=== PATIENT | female | born 1970 | race African-American/Black ===

== ENCOUNTER → 2022-06-08 11:44 | Outpatient (BNVA) | payer OTHER, SELFPAY | PROVIDERS: PCP Internal Medicine; Referring Provider Internal Medicine; Visit Provider Physician Assistant Surgical ==

== ENCOUNTER 2022-10-11 10:53 | Outpatient (AMB) | payer OTHER, SELFPAY ==
--- NOTE | 2022-10-11 10:59 | MHC.OFFVISWM ---
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 BMI 47.7 Equity Manager Required: No Allergies No Known Allergies Allergy (Verified 10/11/22 11:06) Medication List - Last Reconciled 10/11/22 by KIERA Phillips celecoxib 100 mg PO BID cyanocobalamin (vitamin B-12) (Vitamin B-12) 5,000 mcg PO DAILY furosemide 20 mg PO DAILY gabapentin 300 mg PO TID gabapentin 600 mg PO TID hydrochlorothiazide 25 mg PO DAILY lisinopril 10 mg PO DAILY nystatin 100,000 units topical BID oxycodone-acetaminophen 10-325 mg 1 tab PO QID PRN valacyclovir 500 mg PO BID HPI HPI Comments History of Present Illness Details Pt is here to start the [facility] surgical weight loss program. She heard about our program from her PCP. Her goal is to lose weight and achieve a healthy lifestyle as well as to improve, if not resolve, obesity related medical conditions, including OA and HTN. She reports first being concerned about her weight over 10 years, highest weight to date was 300. Current weight is 238.6 pounds with a BMI of 48.2. She has tried multiple methods of weight loss including multiple fad diets without permanent results. She lives with her daughter and son. She does not work. States she has limited mobility due to severe bilateral hip arthritis and was told by her Orthopedist that she needs to lose 30 more pounds prior to any surgical intervention. She was also told by her urologist that she has gallstones although does not report frequent RUQ abdominal pain. She does get epigastric pain perhaps 1-2 x per month. She has been experiencing intermittent chest pain and is being followed by her irrigationist designer and is scheduled for echocardiogram. Ortho- [facility] ([facility]) Cards- Dr Carr Urology-Dr Loja She wakes at:?6 am, and goes to bed at?10 pm. Dinner is at 6 pm. Breakfast: cheese luxembourgish, croissant, iced coffee vanilla syrup cream and sugar AM snack: fries, chips, fruit, yogurt, Lunch: sandwich, pasta salad, fast food PM snack: chips, little bite muffins Dinner: bagged pasta, rik sauce, chicken parm, rice, veg, kilbasa, beans After dinner: chips, cookies, ice cream. Other snacks: as above Liquids: 16-32 oz water, 60 oz soda daily (coke, kaylyn ros), cran juice 32 oz daily Alcohol/marijuana/tobacco intake: 3-4 glasses of wine weekly, no cannabis, no tobacco Exercise: none, no gym membership, no equipment at home. GERD score: 0 TAMARA score: 3 ESS score: 8 QOL score: 27 (many questions not answered as she felt limitations were from arthritis and need for walker rather than weight) PFSH Surgical History Hx of hernia repair Family History Mother Arthritis Heart problem Father Diabetes Colon cancer Family history of prostate cancer Arthritis Son Nerve damage Asthma Daughter Asthma Daughter Asthma Social History Alcohol intake: current Alcohol intake frequency: holidays/special occasions only Patient Tobacco Use Status: Never used Tobacco Review of Systems Const All systems reviewed & are unremarkable except as noted in HPI and below Physical Exam Vital Signs: Last Vital Signs Temp 96.7 F L 10/11/22 11:14 Pulse 73 10/11/22 11:14 BP 147/67 H 10/11/22 11:14 Pulse Ox 99 10/11/22 11:14 Oxygen Delivery Method Room Air 10/11/22 11:14 BMI result Body Mass Index 48.2 Const General: cooperative, healthy appearing and no acute distress Orientation/consciousness: patient oriented x3 Limitations: ambulation with walker HEENT Head: Yes normal to inspection Ears: hearing grossly normal bilaterally General nose exam: Normal external nose present Face and sinus: Yes normal facial exam Eyes General: appearance normal, both eyes and all related structures Resp Effort & Inspection: normal respiratory effort Auscultation: clear to auscultation bilaterally Cardio Rate: regular rate Rhythm: regular rhythm Heart sounds: S1 normal heart sound present and S2 normal heart sound present GI Inspection: Yes normal to inspection, No distended and Yes obesity Palpation (GI): Soft to palpation, nontender and no guarding Auscultation: normal bowel sounds Skin General skin exam: no rashes or lesions noted Neuro General: patient oriented x3 Extrem General: No edema Psych Appearance: grossly normal Mental Status: mental status grossly normal Speech and movement: Normal speech and movement present Affect: normal affect Attitude: cooperative Assessment & Plan Assessment & Plan (1) Morbid obesity: Code(s): E66.01 - Morbid (severe) obesity due to excess calories Plan: This is a?52 yo female who will start our SWL program to prepare for bariatric surgery.? Blood work, h pylori , CXR, ECG, Abd US and UGI have been ordered. She is being scheduled for RD and BH initial consultations. She will start SWL classes and watch the first three videos before her next appointment. ? Adequate sleep of 7-8 hours per night discussed, awakening at 6 am and going to bed around 10 pm ? Purchase body composition analyzer scale ([place] or Teresa recommended) and check weight weekly. The best time to do this is first thing in the morning after going to the bathroom. 1. Nutritional counseling: Be sure to careful read the number of scoops per shake Start with 3 Orgain shakes ([employer], [employer], [facility]), First shake, (2 scoops in 8 oz low fat unsweetened almond milk or water) at 7am-9am, Second shake (1 scoop in 8 oz unsweetened almond milk or water) at 11am-1pm 1 protein bar (Fulfil bars at [employer], [employer], or [employer]) at 2pm-4pm. Dinner at 6pm (9 forks of protein and 9 forks of salad/vegetables). Meal to include lean meat (beef, fish, pork, turkey, chicken), cooked vegetables or a salad with olive oil and/or fruits (berries, pears, apples, kiwi). Avoid salt, breads, potatoes, rice, pasta, desserts. Another shake with 1 scoop in 8 oz unsweetened almond milk at 8pm-10pm. Try to drink 64 oz of water daily and avoid soda and juices. ?2. Each shake would be drunk slowly, like coffee in a period of 2 hours. ?3. Cut each bar in 4 pieces and eat each piece in 30 min ?to make each bar last 2 hours. ?4. I emphasized the importance of measuring accurately the food portion and measure it carefully when serving the food on the plate ?5. The meal portions include 9 full-size forks of meat and 9 full-size forks of salad. You always eat the meat portion but you can replace up to half of the forks of salad/vegetables with rice, potatoes or pasta, or a fruit ?if you like. The less you do it the better weight loss will be. ?6. One full-size fork is what can be scooped on the fork without falling aside and not what can be bit with the fork. Use regular forks like those you find in a typical restaurant. ?7.? Please send me weight measurements as soon as possible and then once a week. Always include your diet and exercise plan. Alternatively come weekly at the office for weight checks and send me the measurements. ?8. Exercise counseling: Begin by watching a stretching for beginners video. Start slowly and begin to stretch your muscles. You should do this before and after each exercise session to prevent injury. Please join [facility] gym near your home. Ask the plant hr manager or one of the trainers how to use the machines if you are unfamiliar with them. [The following is the goal, I know you are limited by your hips but I want you to be able to see what the goals will be] Start elliptical with a resistance of 2. Increase resistance by 1 every 3 min to your most comfortable resistance with a max resistance of 8. Reduce the resistance by 1 every 3 minutes back down to 2 and repeat cycles for 300 calories. Alternatively, start treadmill with a speed of 3.0 and incline of 0, increasing incline by 1 every 3 minutes to the highest comfortable level (max 6 for now) then decrease in the same fashion. Repeat process to a goal of 300 calories. Goal of 2000 calories burned or more weekly. You may also consider use of the stationary bike. The easiest would be to chose the fat-burn or interval training program on the machine and do this until you reach the 300 calorie goal. Alternatively, you can manually adjust the resistance in a similar fashion as mentioned above, (resistance of 2-8 with a goal speed of 12 mph). Tracking calories is essential. Now this is the part that applies to you: Consider walking in the shallow end of the pool for 10 minutes daily, increasing by 2 minutes every 3 days as your endurance and tolerance improves to a goal of 45 minutes daily. Additionally please look at sit and be fit videos that you can do at home. Start with the beginners videos and then increase to intermediate as you improve. 9. (This is another goal that you will be able to achieve, but not yet) Alternatively start walking outside daily, tracking calories with a goal of 300 calories per day, daily. You can download the adi Wibiya which can track your time, distance and calories while walking outside. You press start in the adi when you start and then stop when you are finished. 10.? It is important to communicate by text with me weekly. Your weight and especially if you are having any problems with the plans. 11. Please get labs, EKG and chest X-Ray within 1 week. 12. Discussed and answered all questions regarding?obtained consent to participate in the [place] [facility]?Registry. 13. Please follow the diet plan exactly, without any change. If you do not like something about the plan or you feel hungry, you need to communicate with me so I can help you revise the plan. You should not change the plan yourself. Text me at [phone] 14. Goal is to lose at least 12 pounds in the first month 15. Goal is to lose 10% of your weight before surgery, which is about 24 lbs. Ultimate weight goal: 214 lbs before surgery Patient is morbidly obese and is not considered stable at this time.?I spent a total of 70 minutes reviewing/updating records, examining the patient and counseling the patient on weight management as detailed above. (2) Cholelithiasis: Code(s): K80.20 - Calculus of gallbladder without cholecystitis without obstruction Plan: Consult to Dr Barber Orders: Orders Vitamin B12 and Folate Today E66.01 - Morbid (severe) obesity due to excess calories, I10 - Essential (primary) hypertension, K80.20 - Calculus of gallbladder without cholecystitis without obstruction Comprehensive Met. Panel Today E66.01 - Morbid (severe) obesity due to excess calories, I10 - Essential (primary) hypertension, K80.20 - Calculus of gallbladder without cholecystitis without obstruction C Reactive Protein Today E66.01 - Morbid (severe) obesity due to excess calories, I10 - Essential (primary) hypertension, K80.20 - Calculus of gallbladder without cholecystitis without obstruction Ferritin Today E66.01 - Morbid (severe) obesity due to excess calories, I10 - Essential (primary) hypertension, K80.20 - Calculus of gallbladder without cholecystitis without obstruction Hemoglobin A1c Today E66.01 - Morbid (severe) obesity due to excess calories, I10 - Essential (primary) hypertension, K80.20 - Calculus of gallbladder without cholecystitis without obstruction Insulin Today E66.01 - Morbid (severe) obesity due to excess calories, I10 - Essential (primary) hypertension, K80.20 - Calculus of gallbladder without cholecystitis without obstruction IRON PROFILE Today E66.01 - Morbid (severe) obesity due to excess calories, I10 - Essential (primary) hypertension, K80.20 - Calculus of gallbladder without cholecystitis without obstruction Lipid Panel Today E66.01 - Morbid (severe) obesity due to excess calories, I10 - Essential (primary) hypertension, K80.20 - Calculus of gallbladder without cholecystitis without obstruction PTHI Today E66.01 - Morbid (severe) obesity due to excess calories, I10 - Essential (primary) hypertension, K80.20 - Calculus of gallbladder without cholecystitis without obstruction TSH reflex Free T4 Today E66.01 - Morbid (severe) obesity due to excess calories, I10 - Essential (primary) hypertension, K80.20 - Calculus of gallbladder without cholecystitis without obstruction Vitamin A Today E66.01 - Morbid (severe) obesity due to excess calories, I10 - Essential (primary) hypertension, K80.20 - Calculus of gallbladder without cholecystitis without obstruction Vitamin B1 Today E66.01 - Morbid (severe) obesity due to excess calories, I10 - Essential (primary) hypertension, K80.20 - Calculus of gallbladder without cholecystitis without obstruction Vitamin D 25-OH Total Today E66.01 - Morbid (severe) obesity due to excess calories, I10 - Essential (primary) hypertension, K80.20 - Calculus of gallbladder without cholecystitis without obstruction Zinc Today E66.01 - Morbid (severe) obesity due to excess calories, I10 - Essential (primary) hypertension, K80.20 - Calculus of gallbladder without cholecystitis without obstruction ECG 12 lead EKG Today E66.01 - Morbid (severe) obesity due to excess calories, I10 - Essential (primary) hypertension, K80.20 - Calculus of gallbladder without cholecystitis without obstruction FL upper GI w air Today E66.01 - Morbid (severe) obesity due to excess calories, I10 - Essential (primary) hypertension, K80.20 - Calculus of gallbladder without cholecystitis without obstruction Complete Blood Count Auto Diff Today E66.01 - Morbid (severe) obesity due to excess calories, I10 - Essential (primary) hypertension, K80.20 - Calculus of gallbladder without cholecystitis without obstruction H Pylori Breath Test Today E66.01 - Morbid (severe) obesity due to excess calories, I10 - Essential (primary) hypertension, K80.20 - Calculus of gallbladder without cholecystitis without obstruction US abdomen comp w elastography Today E66.01 - Morbid (severe) obesity due to excess calories, I10 - Essential (primary) hypertension, K80.20 - Calculus of gallbladder without cholecystitis without obstruction XR chest 2V Today E66.01 - Morbid (severe) obesity due to excess calories, I10 - Essential (primary) hypertension, K80.20 - Calculus of gallbladder without cholecystitis without obstruction Referrals Behavioral Health Referral E66.01 - Morbid (severe) obesity due to excess calories, I10 - Essential (primary) hypertension, K80.20 - Calculus of gallbladder without cholecystitis without obstruction Nutrition/Dietitian Referral E66.01 - Morbid (severe) obesity due to excess calories, I10 - Essential (primary) hypertension, K80.20 - Calculus of gallbladder without cholecystitis without obstruction Coding Level of Care Code New Pt Level 5 (68487) Diagnoses Morbid obesity E66.01 Cholelithiasis K80.20 Time Spent (min) 90
[2022-10-11 11:14] VITALS: BP 147/67; PULSE 73; TEMP 35.9; O2SAT 99; BMI 48.2
== END 2022-10-11 17:30 | disposition home or self-care (01) ==
PROVIDERS: PCP Internal Medicine; Visit Provider Physician Assistant Surgical
DX: E66.01 Morbid (severe) obesity due to excess calories (principal); Z68.42 Body mass index [BMI] 45.0-49.9, adult; K80.20 Calculus of gallbladder without cholecystitis without obstruction
CPT/HCPCS: 99205

== ENCOUNTER → 2022-10-11 10:53 | Outpatient (BNVA) | payer OTHER, SELFPAY | PROVIDERS: PCP Internal Medicine; Visit Provider Physician Assistant Surgical | DX: E66.01 Morbid (severe) obesity due to excess calories (principal); K80.20 Calculus of gallbladder without cholecystitis without obstruction; Z68.42 Body mass index [BMI] 45.0-49.9, adult | CPT/HCPCS: 99202 ==

== ENCOUNTER 2024-04-17 12:34 | Inpatient (IN) | payer OTHER, SELFPAY ==
--- NOTE | ~2024-04-17 | CT_ITS ---
EXAMINATION: CT ABDOMEN AND PELVIS WITH CONTRAST CLINICAL INFORMATION: Abdominal pain, rule out diverticulitis. COMPARISON: 05/03/2021. TECHNIQUE: Multidetector volumetric images were obtained from the superior aspect of the liver through the pubic symphysis following administration 85 mL of Omnipaque 350 intravenous contrast. Sagittal and coronal reformatted images were obtained on the technologist's workstation. Oral contrast: No This CT examination was performed using dose optimization techniques as appropriate, variously including the following: *Automated exposure control *Adjustment of mA and/or kV according to patient size (this includes techniques or standardized protocols for targeted exams where dose is matched to indication/reason for exam; i.e. extremities or head) *Use of iterative reconstruction technique FINDINGS: LUNG BASES: The visualized lung bases are unremarkable. LIVER, GALLBLADDER, AND BILIARY TREE: The liver is normal in size, shape, and attenuation. No focal hepatic lesion or biliary ductal dilatation is present. Gallbladder is surgically absent. PANCREAS: Unremarkable. SPLEEN: Unremarkable. Small splenules. ADRENAL GLANDS: Unremarkable. KIDNEYS AND URETERS: 3 mm nonobstructing calculus right kidney lower pole. No additional renal calculi. There are bilateral small parapelvic cysts. There are no masses. There is no hydronephrosis. Ureters are normal in caliber and course. BLADDER: Suboptimally distended but normal. GASTROINTESTINAL TRACT: There is moderate to severe diverticulosis of the sigmoid and to a lesser degree descending colon. There is no inflammation or wall thickening. Colon is otherwise normal. The appendix is normal. There is no evidence of appendicitis. The small bowel is normal in caliber and course. No inflammation or wall thickening. Stomach is somewhat decompressed but grossly normal. The duodenal sweep appears normal. ABDOMINAL WALL: No significant hernia is appreciated. LYMPH NODES: Not enlarged by size criteria. VASCULAR: Unremarkable. PELVIC VISCERA: There is a left fundal 2.5 cm subserosal fibroid. Uterus and adnexal structures otherwise normal. OSSEOUS STRUCTURES: There are end-stage arthritic changes in both hip joints. [id number] appearance. The pelvis is somewhat narrow. No suspicious lytic or blastic bone lesion. Mild spinal degenerative change. CT/CT abdomen pelvis w IV con IMPRESSION: 1. No acute findings in the abdomen or pelvis. No evidence of diverticulitis. 2. Extensive sigmoid diverticulosis. No inflammation. 3. Nonobstructing 3 mm calculus in the right kidney. No hydronephrosis or hydroureter. 4. Cholecystectomy. 5. End-stage arthropathy bilateral hip joints. Electronically signed by: Babak Massey MD 04/17/2024 05:05 PM [facility]
--- NOTE | 2024-04-17 13:16 | ED_ITS ---
HPI - General Adult General Chief complaint: Abdominal Pain Stated complaint: abd, n/v/d Time Seen by Provider: 04/17/24 15:15 Source: patient Mode of arrival: ambulatory Limitations: no limitations History of Present Illness ED Provider: Virginia Rendon PA-C HPI narrative: Patient is a 53 year old assigned female at with a history of recent Influenza and diverticulitis diagnoses as well as HTN presenting to the emergency department today with continued abdominal pain, nausea, and vomiting. Patient states that she was seen at [facility] on 04/14/2024 and was told at that time she has diverticulitis and influenza. Patient states that she was discharged with oral antibiotics and anti emetics but she continues to have pain, nausea, and vomiting. Patient states that she has been unable to keep anything down since being home. Patient denies any dizziness, lightheadedness, fever, chills, blurry vision, double vision, loss of vision, chest pain, difficulty breathing, shortness of breath, back pain, night sweats, pain with urination, increased urinary frequency, increased urinary urgency, blood in her urine or stool, syncope or a near syncopal episode, recent trauma or falls, bowel incontinence, bladder incontinence, or any other complaints at this time. Relieving factors: none Associated symptoms: nausea/vomiting Treatments prior to arrival: none Related Data Home Medications ?Medication ?Instructions ?Recorded ?Confirmed celecoxib 100 mg capsule 100 mg PO BID 10/11/22 10/11/22 cyanocobalamin (vitamin B-12) 5,000 mcg PO DAILY 10/11/22 10/11/22 5,000 mcg sublingual tablet (Vitamin B-12) furosemide 20 mg tablet 20 mg PO DAILY 10/11/22 10/11/22 gabapentin 300 mg capsule 300 mg PO TID 10/11/22 10/11/22 gabapentin 600 mg tablet 600 mg PO TID 10/11/22 10/11/22 hydrochlorothiazide 25 mg tablet 25 mg PO DAILY 10/11/22 10/11/22 lisinopril 10 mg tablet 10 mg PO DAILY 10/11/22 10/11/22 nystatin 100,000 unit/gram topical 100,000 unit topical BID 10/11/22 10/11/22 powder oxycodone-acetaminophen 10 mg-325 1 tab PO QID PRN 10/11/22 10/11/22 mg tablet valacyclovir 500 mg tablet 500 mg PO BID 10/11/22 10/11/22 atorvastatin 20 mg tablet 20 mg PO BEDTIME 04/17/24 ciprofloxacin HCl 500 mg tablet 500 mg PO BID 04/17/24 metronidazole 500 mg tablet 500 mg PO BID 04/17/24 ondansetron 4 mg disintegrating 4 mg PO Q8H PRN Nausea And Vomiting 04/17/24 tablet Allergies Allergy/AdvReac Type Severity Reaction Status Date / Time amoxicillin [From Augmentin] Allergy Hives Verified 04/17/24 13:21 clavulanic acid Allergy Hives Verified 04/17/24 13:21 [From Augmentin] Review of Systems 2 Constitutional: Constitutional: Reports no additional constitutional complaints, Denies chills, Denies fever(s) and Denies night sweats Eyes: Eyes: Reports no additional eye complaints, Denies blurry vision, Denies change in vision, Denies diplopia, Denies eye discharge, Denies loss of vision and Denies eye pain ENT: Denies dizziness Cardiovascular: Cardiovascular: Reports no additional cardiovascular complaints, Denies chest pain, Denies lightheadedness, Denies Loss of Consciousness and Denies dyspnea Respiratory: Respiratory: Reports no additional respiratory complaints and Denies dyspnea Gastrointestinal: Gastrointestinal: Reports no additional gastrointestinal complaints, Reports abdominal pain, Denies melena, Denies hematochezia, Denies change in bowel habits, Denies change in stool character, Reports nausea and Reports vomiting Genitourinary: Genitourinary: Denies hematuria, Denies urinary frequency, Denies dysuria, Denies urinary incontinence, Denies urinary hesitancy and Denies urinary urgency Musculoskeletal: Musculoskeletal: Reports no additional musculoskeletal complaints, Denies numbness and Denies tingling Neurologic: Denies dizziness, Denies loss of vision, Denies numbness and Denies tingling Psychiatric: Psychiatric: Reports no additional psychiatric complaints Endocrine: Endocrine: Reports no additional endocrine complaints Hematologic/Lymphatic: Hematologic/Lymphatic: Reports no additional hematologic/lymphatic complaints Allergic/Immunologic: Allergic/Immunologic: Reports no additional allergic/immunologic complaints PMFSH Past Medical History Attestation statement: The following information was validated with the patient. Source: old records reviewed and nursing notes reviewed Surgical History (Updated 04/17/24 @ 16:08 by Elvia Talbot PA-C) Hx of section History of laparoscopic cholecystectomy Hx of hernia repair Family History Family History Mother Arthritis Heart problem Father Diabetes Colon cancer Family history of prostate cancer Arthritis Son Nerve damage Asthma Daughter Asthma Daughter Asthma Social History Social History Alcohol intake: current Alcohol intake frequency: holidays/special occasions only Patient Tobacco Use Status: Never used Tobacco Advance Directives: No Advance Directives Information Provided: Yes Physical Exam ED Vital Signs: Vital Signs - 24 hr 04/17/24 13:18 Temperature 98.0 F Pulse Rate 75 Respiratory Rate 16 Blood Pressure 147/78 H Pulse Oximetry 100 Oxygen Delivery Method Room Air BMI result Body Mass Index 46.4 Const General: cooperative, no acute distress, alert and awake Nutritional Appearance: well nourished Orientation/consciousness: patient oriented x3 Limitations: no limitations HENMT Head: Yes normal to inspection and Yes atraumatic Ears: hearing grossly normal bilaterally and external ears normal General nose exam: Normal external nose present, no nasal discharge noted and no epistaxis Face and sinus: Yes normal facial exam, No abrasion and No laceration Mouth: Normal oral and palatal mucosa present, no drooling and no muffled voice Eyes General: appearance normal, both eyes and all related structures Periorbital: periorbital findings normal Eyelids: Yes eyelids normal Conjunctivae: conjunctivae normal Pupils: Equal, round and reactive pupils present EOM: EOMs intact bilaterally Neck Neck: Yes normal visual inspection, Yes full ROM and Yes no lymphadenopathy Chest Chest palpation & inspection: normal inspection of the chest Resp Effort & Inspection: normal respiratory effort and able to speak in complete sentences GI Inspection: Yes normal to inspection Palpation (GI): Soft to palpation, not firm, Tenderness to palpation present (GI) in the LLQ, in the RLQ, in the LUQ and in the RUQ, no guarding and not rigid Neuro General: patient oriented x3, moves all extremities and CN's II-XI intact bilaterally Cranial nerves: Yes Equal, round and reactive pupils present Cognition (Neuro): normal cognition Extrem General: Yes normal to inspection, Yes full ROM and Yes capillary refill normal Psych Appearance: grossly normal Mental Status: mental status grossly normal Affect: normal affect Attitude: cooperative Thought process: Normal thought process present Thought content: Normal thought content present Insight: Good insight present (Psych) Course Course Course Narrative: This is a rapid medical exam performed by Jayla Johns NP: Additional HPI, ROS, PE not included below will be deferred to primary provider. Patient is a 53-year-old female with history of HTN, arthritis, obesity presenting to the emergency department with complaint of nausea, vomiting, diarrhea and abdominal pain. States she has not been able to tolerate food since 04/07. Seen at [facility] on 04/14, diagnosed with influenza A as well as diverticulitis, but has been unable to tolerate the abx due to vomiting, pain is now worse, subjective fevers. Plan: labs, UA Medications Administered Generic Name Dose Route Start Last Admin Trade Name Freq PRN Reason Stop Dose Admin Lactated Ringer's 1,000 mls @ 100 mls/hr 04/17/24 16:15 04/17/24 17:25 Lr IVCONT 100 mls/hr .Q10H PAT Administration Piperacillin Sod/Tazobactam 50 mls @ 100 mls/hr 04/17/24 16:15 04/17/24 17:07 Sod 3.375 gm/ Sodium Chloride IV 100 mls/hr Q6H PAT Administration Discontinued Medications Generic Name Dose Route Start Last Admin Trade Name Freq PRN Reason Stop Dose Admin Potassium Chloride 10 meq in 100 mls @ 100 mls/hr 04/17/24 15:30 04/17/24 17:24 Potassium Chloride/H20 IV 04/17/24 17:29 100 mls/hr Q1H PAT Administration Lactated Ringer's 1,000 mls @ 999 mls/hr 04/17/24 15:30 04/17/24 16:51 Lr IV 04/17/24 16:30 Infused .Q1H1M PAT Infusion Piperacillin Sod/Tazobactam 50 mls @ 100 mls/hr 04/17/24 15:50 04/17/24 17:09 Sod 3.375 gm/ Sodium Chloride IV 04/17/24 16:19 Not Given ONCE ONE Iohexol 100 ml 04/17/24 16:25 04/17/24 16:25 Iohexol 350 Mg/Ml 100 Ml Infus..Btl IV 04/17/24 16:26 100 ml ONCE ONE Administration Morphine Sulfate 4 mg 04/17/24 15:21 04/17/24 15:45 Morphine Sulfate 4 Mg/Ml Cartridge IVPUSH 04/17/24 15:22 4 mg ONCE ONE Administration Protocol Ondansetron HCl 4 mg 04/17/24 15:16 04/17/24 15:43 Ondansetron Hcl 4 Mg/2 Ml Vial IVPUSH 04/17/24 15:17 4 mg ONCE ONE Administration Potassium Chloride 20 meq 04/17/24 15:16 04/17/24 15:45 Potassium Chloride Er 20 Meq Tab.Er.Prt PO 04/17/24 15:17 20 meq ONCE ONE Administration Medical Decision Making Medical Decision Making MDM Narrative: Patient is a 53 year old assigned female at with a history of recent Influenza and diverticulitis diagnoses as well as HTN presenting to the emergency department today with continued abdominal pain, nausea, and vomiting. Patient's physical exam was as noted in the physical exam portion of this note. Patient's blood work showed a potassium of 3.0. Patient's CT abd/pelvis showed no acute process. I reviewed the patient's records from her [facility] ER visit on 04/14/2024. There she had a CT scan of the abdomen/pelvis that showed acute non- complicated diverticulitis. I consulted with the surgical team given the patient's physical exam findings and they agreed to admission. Patient was given IV antibiotics and potassium. Patient's clinical presentation is not consistent with sepsis (@1700). I explained my physical exam findings as well as all test results to the patient. I answered all questions asked by the patient. Patient verbalized agreement and understanding with this treatment plan and admission. Differential Diagnosis Differential Diagnoses: The differential diagnosis associated with the presentation includes Worsening diverticulitis Hypokalemia Abdominal pain Influenza Admission/Observation Consideration of admission/observation: Escalation of care including admission/observation considered Patient admitted as noted in the MDM Rationale portion of this note. Consult Healthcare Provider Management of the patient was discussed with: Cork Molder (spoke to the surgical team as noted in the MDM Rationale portion of this note. ) Lab Data [facility] Lab Attestation statement: I reviewed the patient's lab results. My interpretation of these results are in the MDM Rationale portion of this note. 04/17/24 13:25 04/17/24 13:25 Labs: Lab Results 04/17/24 Range/Units 13: WBC 4.3 L (4.8-10.8) X10*3/uL RBC 4.69 (4.20-5.50) X10*6/uL Hgb 12.3 (12.0-16.0) g/dl Hct 36.8 L (37.0-47.0) % MCV 78.5 L (80.0-98.0) fL MCH 26.2 L (27.0-33.0) pg MCHC 33.4 (31.0-35.0) g/dl RDW 14.5 (11.0-16.0) % Plt Count 201 (160-400) X10*3/uL MPV 11.4 (9.4-12.3) fL Immature Gran % (Auto) 0.2 (0.0-0.4) % Neut % (Auto) 49.0 (45-73) % Lymph % (Auto) 41.2 H (20-40) % [facility] % (Auto) 9.2 (2-11) % Eos % (Auto) 0.2 (0-4) % Baso % (Auto) 0.2 (0-2) % Lymph # (Auto) 1.8 (1.2-4.9) X10*3/uL [facility] # (Auto) 0.4 (0.1-1.2) X10*3/uL Eos # (Auto) 0.0 (0.0-0.4) X10*3/uL Baso # (Auto) 0.0 (0.0-0.2) X10*3/uL Abs Immat Gran (auto) 0.01 (0.00-0.03) X10*3/uL Absolute Neuts (auto) 2.1 (2.0-8.3) x10*3/uL Absolute Nucleated RBC 0.000 (0.0-0.012) X10*3/uL Nucleated RBC % (auto) 0.0 (0.0-0.2) /100WBC Smear Tech's Comments VERIFIED Sodium 142 (135-145) mmol/L Potassium 3.0 L (3.3-5.1) mmol/L Chloride 107 (96-108) mmol/L Carbon Dioxide 23 (22-29) mmol/L Anion Gap 15 (12-20) BUN 9 (9-16) mg/dL Creatinine 0.78 (0.5-1.4) mg/dL Estim Creat Clear Calc 88.0 Estimated GFR > 60 Random Glucose 92 (60-115) mg/dL Calcium 9.0 (8.4-10.2) mg/dL Magnesium 2.1 (1.6-2.6) mg/dL Total Bilirubin 0.7 (0.0-1.0) mg/dL AST 29 (5-31) U/L ALT 11 (0-31) U/L Alkaline Phosphatase 53 (39-117) U/L Total Protein 7.8 (6.5-8.0) g/dL Albumin 4.2 (3.5-5.0) g/dL Lipase 23 (8-78) U/L Independent Interpretation I performed an independent interpretation of an: CT Scan Interpretation: My interpretation is in agreement with the radiologist's impression of this imaging study. L Report Number: [id number]: Total DLP = 967.00 mGy-cm EXAMINATION: CT ABDOMEN AND PELVIS WITH CONTRAST CLINICAL INFORMATION: Abdominal pain, rule out diverticulitis. COMPARISON: 05/03/2021. TECHNIQUE: Multidetector volumetric images were obtained from the superior aspect of the liver through the pubic symphysis following administration 85 mL of Omnipaque 350 intravenous contrast. Sagittal and coronal reformatted images were obtained on the technologist's workstation. Oral contrast: No This CT examination was performed using dose optimization techniques as appropriate, variously including the following: *Automated exposure control *Adjustment of mA and/or kV according to patient size (this includes techniques or standardized protocols for targeted exams where dose is matched to indication/reason for exam; i.e. extremities or head) *Use of iterative reconstruction technique FINDINGS: LUNG BASES: The visualized lung bases are unremarkable. LIVER, GALLBLADDER, AND BILIARY TREE: The liver is normal in size, shape, and attenuation. No focal hepatic lesion or biliary ductal dilatation is present. Gallbladder is surgically absent. PANCREAS: Unremarkable. SPLEEN: Unremarkable. Small splenules. ADRENAL GLANDS: Unremarkable. KIDNEYS AND URETERS: 3 mm nonobstructing calculus right kidney lower pole. No additional renal calculi. There are bilateral small parapelvic cysts. There are no masses. There is no hydronephrosis. Ureters are normal in caliber and course. BLADDER: Suboptimally distended but normal. GASTROINTESTINAL TRACT: There is moderate to severe diverticulosis of the sigmoid and to a lesser degree descending colon. There is no inflammation or wall thickening. Colon is otherwise normal. The appendix is normal. There is no evidence of appendicitis. The small bowel is normal in caliber and course. No inflammation or wall thickening. Stomach is somewhat decompressed but grossly normal. The duodenal sweep appears normal. ABDOMINAL WALL: No significant hernia is appreciated. LYMPH NODES: Not enlarged by size criteria. VASCULAR: Unremarkable. PELVIC VISCERA: There is a left fundal 2.5 cm subserosal fibroid. Uterus and adnexal structures otherwise normal. OSSEOUS STRUCTURES: There are end-stage arthritic changes in both hip joints. Dfqs-go-[id number] appearance.The pelvis is somewhat narrow. No suspicious lytic or blastic bone lesion. Mild spinal degenerative change. CT/CT abdomen pelvis w IV con IMPRESSION: 1. No acute findings in the abdomen or pelvis. No evidence of diverticulitis. 2. Extensive sigmoid diverticulosis. No inflammation. 3. Nonobstructing 3 mm calculus in the right kidney. No hydronephrosis or hydroureter. 4. Cholecystectomy. 5. End-stage arthropathy bilateral hip joints. Electronically signed by: Babak Massey MD 04/17/2024 05:05 PM [facility] Dictated By: Babak Massey MD Signed By: Electronically signed by Babak Massey MD 04/17/24 1705 Radiology Impression Discussion of test interpretation with radiology: I have reviewed the radiologist's reading. Critical Care Time Critical Care Time Critical Care Time: Yes Total Critical Care Time: 36 Attestation: I spent 36 minutes of Critical Care Time with this patient. This does not include time spent on separately reported billable procedures. Discharge Plan Discharge Clinical Impression: Abdominal pain, Acute hypokalemia, Influenza Patient Disposition: Admitted As Inpatient
[2024-04-17 13:18] VITALS: BP 147/78; PULSE 75; RESP 16; TEMP 36.7; O2SAT 100; BMI 46.4
[2024-04-17 13:40] LABS: Basophils Percent Auto 0.2 % (0-2); Eosinophils Percent Auto 0.2 % (0-4); Hematocrit 36.8 % (37.0-47.0); Hemoglobin 12.3 g/dl (12.0-16.0); Imm Gran Abs Auto 0.01 X10*3/uL (0.00-0.03); Imm Gran Pct Auto 0.2 % (0.0-0.4); Lymphocytes Absolute Auto 1.8 X10*3/uL (1.2-4.9); Lymphocytes Percent Auto 41.2 % (20-40); MANUAL DIFF FLAG SCAN; Mean Corpuscular HGB Conc 33.4 g/dl (31.0-35.0); Mean Corpuscular Hemoglobin 26.2 pg (27.0-33.0); Mean Corpuscular Volume 78.5 fL (80.0-98.0); Mean Platelet Volume 11.4 fL (9.4-12.3); Monocytes Absolute Auto 0.4 X10*3/uL (0.1-1.2); Monocytes Percent Auto 9.2 % (2-11); Neutrophils Absolute Auto 2.1 x10*3/uL (2.0-8.3); Platelet Count 201 X10*3/uL (160-400); Red Blood Count 4.69 X10*6/uL (4.20-5.50); Red Cell Distribution Width 14.5 % (11.0-16.0); SCAN SMEAR FLAG 1; White Blood Count 4.3 X10*3/uL (4.8-10.8)
[2024-04-17 13:52] LABS: Alanine Aminotransferase 11 U/L (0-31); Albumin Level 4.2 g/dL (3.5-5.0); Alkaline Phosphatase 53 U/L (39-117); Anion Gap 15 (12-20); Aspartate Amino Transferase 29 U/L (5-31); Bilirubin Total 0.7 mg/dL (0.0-1.0); Blood Urea Nitrogen 9 mg/dL (9-16); Carbon Dioxide 23 mmol/L (22-29); Chloride 107 mmol/L (96-108); Estimated Glomerular Filt Rate > 60; Glucose Random 92 mg/dL (60-115); Lipase 23 U/L (8-78); Magnesium 2.1 mg/dL (1.6-2.6); Sodium 142 mmol/L (135-145); Total Protein 7.8 g/dL (6.5-8.0)
--- OUTSIDE RECORDS SUMMARY | 2024-04-17 13:57 | XMS_ITS | Encounter Summary ---
Author Organization [facility] Address [address] [place] [address] Care Team Providers Care User Interface Developer Name Role Phone Matthew Licona MD Primary Care Provider [phone] Reason for Visit * Reason Onset Date Comments provder call back 04/11/2024 Reschedule 04/11/2024 Encounter Details Date Type Department Care Team (Late st Contact Info) Description 04/11/2024 Nurse Triage Adult Medicine [address] [phone] Matthew Licona MD [address] [place] [phone] provder call back; Reschedule Social History Tobacco Use Types Packs/Day Years Used Date Smoking Tobacco: Never Smokeless Tobacco: Never Alcohol Use Standard Drinks/Week Comments Not Currently 0 (1 standard drink = 0.6 oz pur e alcohol) Comments Unknown Sex and Gender Information Value Date Recorded Sex Assigned at Female 04/14/2024 5:00 PM EST Legal Sex Female 4:35 PM EDT Gender Identity Female 04/14/2024 5:00 PM EST Sexual Orientation Choose not to disclose 2024 5:00 PM EST documented as of this encounter Progress Notes * Cherry Miranda RN - 04/11/2024 12:01 PM EST I offered to reschedule pt to be seen in the office at a later time today. She declined requesting a tele health appointment. Explained to pt her symptoms cannot adequately be evaluated via tele health and she would need to be seen in the office. Pt states she will go to an [facility]. She then asked this message be sent to Dr. Licona as she is on a CSC and did not want to violate thiscontract. Reason for Disposition [1] MILD difficulty breathing (e.g., minimal/no SOB at rest, SOB with walking, pulse <100) AND [2] still present when not coughing Answer Assessment - Initial Assessment Questions 1. ONSET: When did the cough begin? She states she has had the symptoms for 2-3 days. 2. SEVERITY: How bad is the cough today? She rates the cough as 9/10 r/t persistence 3. SPUTUM: Describe the color of your sputum (e.g., none, dry cough; clear, white, yellow, green) No sputum 4. HEMOPTYSIS: Are you coughing up any blood? If Yes, ask: How much? (e.g., flecks, streaks, tablespoons, etc.) No hemoptysis 5. DIFFICULTY BREATHING: Are you having difficulty breathing? If Yes, ask: How bad is it? (e.g., mild, moderate, severe) - MILD: No SOB at rest, mild SOB with walking, speaks normally in sentences, can lie down, no retractions, pulse < 100. - MODERATE: SOB at rest, SOB with minimal exertion and prefers to sit, cannot lie down flat, speaksin phrases, mild retractions, audible wheezing, pulse 100 to 120. - SEVERE: Very SOB at rest, speaks in single words, struggling to breathe, sitting hunched forward,retractions, pulse > 120 She reports shortness of breath at rest. 6. FEVER: Do you have a fever? If Yes, ask: What is your temperature, how was it measured, and when did it start? No fever today but had one at the onset of symptoms 7. CARDIAC HISTORY: Do you have any history of heart disease? (e.g., heart attack, congestive heart failure) PT was sent to cardiology r/t EKG abnormalities but was OK to f/u in 6-9 months 8. LUNG HISTORY: Do you have any history of lung disease? (e.g., pulmonary embolus, asthma, emphysema) She has a history of asthma 9. PE RISK FACTORS: Do you have a history of blood clots? (or: recent major surgery, recent prolonged travel, bedridden) No PE risk factors 10. OTHER SYMPTOMS: Do you have any other symptoms? (e.g., runny nose, wheezing, chest pain) Chest pain, lethargy, runny nose, scratchy throat, headache, loss of appetite 11. : Is there any chance you are ? When was your last menstrual period? No. Her LMP was 03/31/24 12. TRAVEL: Have you traveled out of the country in the last month? (e.g., travel history, exposures) She has not taken a home Covid test. Her daughter will test her for Covid today. Protocols used: Cough - Acute Ynn-Wtzsrpwelr-O-AH * Chari Azul - 04/11/2024 8:39 AM EST Patient is calling in today asking for her appt to be changed to telehealth today since she isn't feeling well. Also asking for a call back from nurse documented in this encounter Plan of Treatment Upcoming Encounters Date Type Department Care Team (Late st Contact Info) Description 05/16/2024 12:00 PM EDT Office Visit Adult Medicine [address] [phone] Myles Frausto PA [address] [place] [phone] 09/25/2024 10:30 AM EDT Consult Bariatric Surgery - [address] [phone] Yi Fitzpatrick MD [address] [phone] documented as of this encounter Visit Diagnoses Not on filedocumented in this encounter Care Teams User Interface Developer Relationship Specialty Start Date End Date Matthew Licona MD [address] [place] [phone] PCP - General Internal Medicine 02/07/24 documented as of this encounter
--- OUTSIDE RECORDS SUMMARY | 2024-04-17 13:57 | XMS_ITS | Clinical Summary ---
Author Organization [facility] Address [address] [place] [address] Care Team Providers Care Freight Rate Clerk Name Role Phone Matthew Licona MD Primary Care Provider [phone] Allergies Active Allergy Reactions Criticality Noted Date Comments Amoxicillin-Pot Clavulanate Nausea And Vomiting 05/29/2023 Tolerates amoxicillin Doxycycline Nausea And Vomiting 05/29/2023 Medications atorvastatin (LIPITOR) 20 mg tablet Take 1 Tablet by mouth at bedtime. 12/21/19 24 Active cholestyramine (QUESTRAN) 4 gram packet Take 1 Packet by mouth 2 times daily (with meals) for 30 days. If diarrhea remains a problem after 1 week, may increase to 3 times daily with meals. Mix powder into orange juice or another liquid to take. 12/13/19 24 Active cyanocobalamin, vitamin B-12, 5,000 mcg tablet,disintegrat ing Take 1 Tablet by mouth daily. 03/30/19 24 Active fluticasone propionate (FLONASE) 50 mcg/actuation nasal spray 2 sprays each nostril once a day for 10 days. 09/15/19 22 Active gabapentin (NEURONTIN) 300 mg capsule Take 3 Capsules by mouth 3 times daily. 12/21/19 24 Active hydroCHLOROthiazid e (HYDRODIURIL) 25 mg tablet Take 1 Tablet by mouth daily. 12/21/19 24 Active lidocaine (XYLOCAINE) 5 % ointment Apply 1 g topically 3 times daily. 03/30/19 24 Active lisinopriL (PRINIVIL,ZESTRIL) 10 mg tablet Take 1 Tablet by mouth daily. 12/21/19 24 Active loratadine (CLARITIN) 10 mg tablet Take 1 Tablet by mouth daily for 30 days. 09/15/19 22 Active nitroglycerin (NITROSTAT) 0.[address] 1 Tablet under the tongue every 5 minutes as needed for Chest pain. 05/31/19 24 025 Active nystatin (MYCOSTATIN) 100,000 unit/gram powder Apply 1 g topically 2 times daily. 07/04/19 23 Active semaglutide (Wegovy) 1 mg/0.5 mL injection pen Inject 1 mg into the skin every 7 days. 12/21/19 24 Active semaglutide (Wegovy) 1.7 mg/0.75 mL injection pen Inject 1.7 mg into the skin once a week. 10/31/19 24 Active valACYclovir (VALTREX) 500 mg tablet Take 1 Tablet by mouth 2 times daily. TAKE 1 TABLET BY MOUTH TWICE A DAY FOR 3 DAYS Strength: 500 mg 07/04/19 23 Active albuterol HFA (Ventolin HFA) 90 mcg/actuation inhaler INHALE 2 PUFFS INTO THE LUNGS EVERY 4 HOURS NEEDED FOR COUGH OR WHEEZING. 06/12/19 24 Active ondansetron (ZOFRAN) 4 mg tablet Take 1 tablet (4 mg total) by mouth every 8 (eight) hours if needed for nausea. for nausea 20 tablet 3 01/15/20 24 Active oxyCODONE-acetamin ophen (PERCOCET) 10-325 mg per tabletIndications: Osteoarthritis of left hip, unspecified osteoarthritis type Take 1 tablet by mouth 4 (four) times a day. Max Daily Amount: 4 tablets 112 tablet 04/08/19 25 Active ciprofloxacin (CIPRO) 500 mg tablet Take 1 tablet (500 mg total) by mouth 2 (two) times a day for 10 days. 20 tablet 04/14/19 25 025 Active metroNIDAZOLE (FLAGYL) 500 mg tablet Take 1 tablet (500 mg total) by mouth 2 (two) times a day. Do not use mouth wash or consume alcohol until 48 hours after last dose 14 tablet 04/14/19 25 Active ondansetron ODT (ZOFRAN-ODT) 4 mg disintegrating tablet Let 1 tablet dissolve under the tongue three times daily as needed for nausea or vomiting. 10 tablet 04/14/19 25 025 Active oxyCODONE-acetamin ophen (PERCOCET) 10-325 mg per tabletIndications: Osteoarthritis of left hip, unspecified osteoarthritis type Take 1 tablet by mouth 4 (four) times a day. Max Daily Amount: 4 tablets 112 tablet 03/11/19 25 025 Discontin ued(Reord er) Active Problems Problem Noted Date Diagnosed Date Shortness of breath 09/04/2022 Overview (01/08/2024): Last Assessment & Plan: Does have shortness of breath with exertion. I think part of this could be due to the fact that she could have sleep apnea. Her lungs are clear. I did not see any evidence heart failure today. I do think that we will need to further evaluate her LV function and exclude valvular heart disease. Will schedule a echocardiogram. Cutaneous candidiasis 07/03/2022 Overview (01/08/2024): Last Assessment & Plan: Will treat with topical nystatin powder on medial thighs Herpes simplex vulvovaginitis 07/03/2022 Overview (01/08/2024): Last Assessment & Plan: Refilled Valtrex for prn use. Vaginal discharge 07/03/2022 Overview (01/08/2024): Last Assessment & Plan: No evidence of infection on microscopy. Will await testing to follow up. Pedal edema 10/19/2021 Diverticulosis 05/04/2021 Overview (01/08/2024): CT Abdomen 04/2021 Calculus of gallbladder with out cholecystitis without obstruction 09/24/2020 HTN (hypertension) 01/02/2012 Overview (01/08/2024): Last Assessment & Plan: Generally well-controlled on current regimen of hydrochlorothiazide and lisinopril. Osteoarthritis of left hip 01/02/2012 Hip pain 03/06/2011 Overview (01/08/2024): Follows with [facility] Nephrolithiasis 01/03/2011 Overview (01/08/2024): [facility] - 12/29/10 - Dr. Narvaez Generalized headaches 05/04/2008 Elevated blood pressure reading 10/29/2007 Overview (01/08/2024): Elevated blood pressure Breast mass 10/03/2007 Overview (01/08/2024): Negative biopsy for malignancy Chest pain 10/03/2007 Overview (01/08/2024): Seen by Dr. Patel September 2022 for recurrent chest pain, advised to go to the emergency department for further evaluation in which patient failed to go. Seen by PCP this March, he ordered a nuclear stress test that is scheduled for June 07 -Pharmacologic nuclear stress test on 07/10/2023 showed normal perfusion without evidence of ischemia or infarction, normal EF, normal regional wall motion; of note, no significant coronary artery calcifications were noted on CT imaging performed for attenuation correction Last Assessment & Plan: Stress test is very reassuring and was essentially within normal limits. I reviewed this with her. She was very happy to hear this. Therefore, I suspect her chest pain and shortness of breath associated with emotional stress is just that and unlikely to be an anginal equivalent. That said, I encouraged her and her pursuits to get healthier to prevent future cardiovascular disease. To that end, she is already on primary prevention agents including atorvastatin 20 mg at bedtime and baby aspirin. She will continue both. I encouraged her to seek help from a counselor possibly to deal with all of the stressors in her life and potentially help her deal with depression and anxiety. She is definitely agreeable to looking into this. Morbid obesity with BMI of 40.0-44.9, adult 10/2006 Encounters Date Type Department Care Team Description 04/14/2024 3:27 PM EST - 04/15/2024 12:05 AM EST Emergency [facility] Emergency [address] [place] [id number] Young Rdz MD Influenza A (Primary Dx); Hypokalemia; Diverticulitis Discharge Disposition: Home or Self Care 04/11/2024 Nurse Triage Adult [address] [phone] Matthew Licona MD provder call back; Reschedule 04/04/[address] [phone] Marta Mcfadden MA 04/03/[address] [phone] Matthew Licona MD Release of Information; Forms/questionnaires 04/03/[address] [phone] Matthew Licona MD 03/20/[address] [phone] Matthew Licona MD Appointment from Last 3 Months Immunizations Name Administration Dates Next Due Influenza trivalent, 0.5mL, preservative free (Fluarix; FluLaval; Fluzone) ages 6mo and older (Afluria) 3 years and older 01/02/2012,11/25/2007 Influenza trivalent, with pr eservative (Fluzone; Afluria) 6mo and older 01/26/2020,01/02/2012,11/25/2007 Anthillz SARS-CoV-2 COVID-19, mRNA, LNP-S, preservative free 04/04/2021 Tdap Tetanus diptheria acell ular pertussis (Boostrix; Adacel) 7yo and older 10/18/2007 Surgical History Surgery Date Site/Laterality Comments SECTION PROCEDURE: HISTORICAL BREAST SURGERY Bilateral PROCEDURE: [place] UNLISTED PROCEDURE BREAST; COMMENT: 2007 excisional biopsy fibroadenoma Medical History Medical History Date Comments Obesity, unspecified 12/10/2006 DX:Obesity, unspecified Nephrolithiasis 01/03/2011 DX:Nephrolithias is HTN (hypertension) 01/02/2012 DX:HTN (hyper tension) Osteoarthritis of left hip 01/02/2012 DX:Os teoarthritis of left hip Family History Medical History Relation Name Comments Heart attack Aunt 1 Colon cancer Father Prostate cancer Father Other cancer Maternal Grandmother cervica l cancer Other: heart problems Mother Breast cancer Other m. niece Lung cancer Paternal Grandfather Ovarian cancer Neg Hx Pancreatic cancer Neg Hx Uterine cancer Neg Hx Relation Name Status Comments Aunt 1 Alive Aunt 2 Alive Breast cancer ( dx'd ?) Father Alive Maternal Grandmother Cervica l cancer Mother Alive Breast Cancer ( dx'd 57) Mother's side Aunt's daughte r/pt's cousin - 33 Breast CA Other m. niece Cousin, breast cancer Paternal Grandfather Social History Tobacco Use Types Packs/Day Years [...] not to disclose 2024 5:00 PM EST Obstetrics History Last Filed Vital Signs Vital Sign Reading Time Taken Comments Blood Pressure 142/72 04/14/2024 10:18 PM EST Pulse 78 04/14/2024 10:18 PM EST Temperature 37.5 ??C (99.5 ??F) 04/14/2024 5:24 PM ES T Respiratory Rate 18 04/14/2024 10:18 PM EST Oxygen Saturation 98% 04/14/2024 10:18 PM EST Inhaled Oxygen Concentration - - Weight 104 kg (230 lb) 04/14/2024 12:09 PM EST Height 149.9 cm (4' 11 ) 04/14/2024 12:09 PM EST Body Mass Index 46.45 04/14/2024 12:09 PM EST Plan of Treatment Upcoming Encounters Date Type Department Care Team (Late st Contact Info) Description 05/16/2024 12:00 PM EDT Office Visit Adult Medicine [address] [phone] Myles Frausto PA [address] [place] [address] 09/25/2024 10:30 AM EDT Consult Bariatric Surgery - [place] [address] [place] [phone] Yi Fitzpatrick MD [address] [place] [address] Health Maintenance Due Date Last Done Comments Hepatitis B Vaccines (1 of 3 - 19+ 3-dose series) 1988 DTaP,Tdap,and Td Vaccines (2 - Td or Tdap) 10/17/2017 10/18/2007 Pneumococcal Vaccine: 50+ Years (1 of 1 - PCV) 2019 Zoster Vaccines (1 of 2) 2019 Colorectal Cancer Screening: Colonoscopy 06/15/2021 Depression Screening 06/15/2021 Social Influencers of Health Screening 06/15/2021 COVID-19 Vaccine ( season) 2023 04/04/2021, 03/14/2021 Influenza Vaccine (#1) 2023 , 01/02/2012, 01/02/2012, Additional history exists Cervical Cancer Screening: HPV 05/13/2024 05/14/2019 Breast Cancer Screening 05/25/2024 05/25/2022, 04/14 Hypertension/CHF/CAD Annual BMP Blood Test 04/14/2025 04/14/2024, 08/16/2023, 08/16/2023, Additional history exists Cholesterol Screening (Lipid Panel) 06/03/2026 06/03/2021 HIV Screening Completed 05/25/2022 Hepatitis C Screening Completed 05/25/2022 HIB Vaccines Aged Out No longer eligi ble based on patient's age to complete this topic HPV Vaccines Aged Out No longer eligi ble based on patient's age to complete this topic Hepatitis A Vaccines Aged Out No long er eligible based on patient's age to complete this topic IPV Vaccines Aged Out No longer eligi ble based on patient's age to complete this topic MMR Vaccines Aged Out No longer eligi ble based on patient's age to complete this topic Meningococcal ACWY Vaccine Aged Out N o longer eligible based on patient's age to complete this topic Meningococcal B Vacine Aged Out No lo nger eligible based on patient's age to complete this topic Pneumococcal Vaccine: Pediatrics (0 to 5 Years) and At-Risk Patients (6 to 64 Years) Aged Out No longer eligible based on patient's age to complete this topic RSV Immunization Patients Under 20 months Aged Out No longer eligible based on patient's age to complete this topic Varicella Vaccines Aged Out No longer eligible based on patient's age to complete this topic Procedures Procedure Name Priority Date/Time Associated Diagnosis Comments ECG ANNOTATED 04/16/2024 MOELLER URINE CULTURE TUBE STAT 04/14/2024 9:18 PM EST URINALYSIS WITH REFLEX MICROSCOPIC AND CULTURE STAT 04/14/2024 9:18 PM EST URINALYSIS WITH REFLEX MICROSCOPIC AND CULTURE STAT 04/14/2024 9:[address] ABDOMEN PELVIS W CONTRAST STAT 04/14/2024 7:01 PM EST XR CHEST 1 VIEW STAT 04/14/2024 5:33 PM EST [id number], RSV, FLU A AND B QUALITATIVE RT-PCR, INTERNAL LAB STAT 04/14/2024 5:20 PM EST TROPONIN I HIGH SENSITIVITY STAT 04/14/2024 1:43 PM EST ECG 12-LEAD STAT 04/14/2024 1:34 PM EST CBC WITH AUTO DIFFERENTIAL STAT 04/14/2024 1:24 PM EST LIPASE STAT 04/14/2024 1:24 PM EST COMPREHENSIVE METABOLIC PANEL STAT 04/14/2024 1:24 PM EST MAGNESIUM STAT 04/14/2024 1:24 PM EST CBC AND DIFFERENTIAL STAT 04/14/2024 1:24 PM EST SCREENING MAMMOGRAPHY BI 2-VIEW BREAST INC CAD Routine 05/25/2022 12:52 PM EDT Encounter for other screening for malignant neoplasm of breast HEPATITIS C SCREENING Routine 05/25/2022 HIV SCREENING Routine 05/25/2022 LIPID PANEL Routine 06/03/2021 HPV Routine 05/14/2019 from Last 3 Months or Most Recently Relevant to Health Maintenance Results * ECG-Annotated (04/16/2024) us Provider Onbase MD ECG ORDERABLES Final Result * (ABNORMAL) Urinalysis with reflex microscopic and culture (04/14/2024 9:18 PM EST) Specific Sullivan Urine >1.045(H) 1.003 - 1.030 LAB URINALYSIS - AUTOMATED METHOD 04/14/2024 10:15 PM [facility] pH, Urine 5.5 5.0 - 8.0 pH LAB URINALYSIS - AUTOMATED METHOD 04/14/2024 10:15 PM [facility] Leukocytes, Urine Negative Negative LAB URINALYSIS - AUTOMATED METHOD 04/14/2024 10:15 PM [facility] Nitrite, Urine Negative Negative LAB URINALYSIS - AUTOMATED METHOD 04/14/2024 10:15 PM [facility] Protein, Urine 30(A) <=Trace mg/dL LAB URINALYSIS - AUTOMATED METHOD 04/14/2024 10:15 PM [facility] Glucose, Urine Negative Negative mg/dL LAB URINALYSIS - AUTOMATED METHOD 04/14/2024 10:15 PM [facility] Ketones, Urine 40(A) Negative mg/dL LAB URINALYSIS - AUTOMATED METHOD 04/14/2024 10:15 PM [facility] Urobilinogen , Urine 1.0 0.2 - 1.0 mg/dL LAB URINALYSIS - AUTOMATED METHOD 04/14/2024 10:15 PM [facility] Bilirubin, Urine Negative Negative LAB URINALYSIS - AUTOMATED METHOD 04/14/2024 10:15 PM [facility] Blood, Urine Negative Negative LAB URINALYSIS - AUTOMATED METHOD 04/14/2024 10:15 PM [facility] RBC, Urine 2.7 0 - 4 /HPF LAB URINALYSIS - AUTOMATED METHOD 04/14/2024 10:15 PM [facility] WBC, Urine 3.3 0 - 4 /HPF LAB URINALYSIS - AUTOMATED METHOD 04/14/2024 10:15 PM [facility] Squamous Epithelial, Urine 88(H) 0 - 60 /LPF LAB URINALYSIS - AUTOMATED METHOD 04/14/2024 10:15 PM [facility] Bacteria, Urine Negative Negative /HPF LAB URINALYSIS - AUTOMATED METHOD 04/14/2024 10:15 PM [facility] Hyaline Casts, Urine 3.0 0 - 3 /LPF LAB URINALYSIS - AUTOMATED METHOD 04/14/2024 10:15 PM [facility] Urine Urine specimen obtained by clean catch procedure / Unknown Non-blood Collection / Unknown 04/14/2024 9:18 PM EST 04/14/2024 9:36 PM EST us Babak QURESHI LAB URINE ORDERABLES Final Resul t [facility] [address] [place] [address], * Moeller urine culture tube (04/14/2024 9:18 PM EST) Extra Tube Hold for add-ons. 04/14/2024 11:01 PM EST [facility] Comment:Auto resulted. Urine Urine specimen obtained by clean catch procedure / Unknown Non-blood Collection / Unknown 04/14/2024 9:18 PM EST 04/14/2024 9:36 PM EST Babak QURESHI LAB URINE ORDERABLES Final Resul t [facility] ([facility]) [facility] [address] [place] [address], [place] [phone] * CT Abdomen Pelvis w Contrast (04/14/2024 7:01 PM EST) Anatomical Region Laterality Modality Body Computed Tomogra phy 04/14/2024 8:19 PM EST Impressions 04/14/2024 8:19 PM EST 1. Acute uncomplicated sigmoid diverticulitis. 2. Right nephrolithiasis. This document has been electronically signed by: Helio Amador MD on 04/14/2024 20:19:44 Narrative 04/14/2024 8:19 PM EST INDICATION: Abdominal pain, acute, nonlocalized CT abdomen and pelvis with contrast Comparison: None Findings: No consolidation or effusion. The gallbladder is surgically absent. Nonobstructing stone in the inferior pole of the right kidney. No hydronephrosis. The liver, spleen, adrenals and pancreas are normal. A short segment of sigmoid colon demonstrates mural thickening and hyperemia with adjacent fat stranding. No fluid collection or intra-abdominal free air. Pelvic contents unremarkable. Normal appendix. The bones are intact. Severe degenerative changes in both hips. Procedure Note Helio Amador MD - 04/14/2024 INDICATION: Abdominal pain, acute, nonlocalized CT abdomen and pelvis with contrast Comparison: None Findings: No consolidation or effusion. The gallbladder is surgically absent. Nonobstructing stone in the inferior pole of the right kidney. No hydronephrosis. The liver, spleen, adrenals and pancreas are normal. A short segment of sigmoid colon demonstrates mural thickening and hyperemia with adjacent fat stranding. No fluid collection or intra-abdominal free air. Pelvic contents unremarkable. Normal appendix. The bones are intact. Severe degenerative changes in both hips. IMPRESSION: 1. Acute uncomplicated sigmoid diverticulitis. 2. Right nephrolithiasis. This document has been electronically signed by: Helio Amador MD on 04/14/2024 20:19:44 us Young Rdz MD IMG CT PROCEDURES Final Res ult * XR Chest 1 View (04/14/2024 5:33 PM EST) Anatomical Region Laterality Modality Body Radiographic Mariana ging 04/15/2024 9:57 AM EST Impressions 04/15/2024 9:58 AM EST No acute pulmonary disease. Code 06524 -------- FINAL REPORT -------- Dictated By: Armen Oneal Dictated Date: 04/15/2024 09:57 ET Assigned Physician: Armen Oneal Reviewed and Electronically Signed By: Armen Oneal Signed Date: 04/15/2024 09:58 ET Workstation ID: [id number] Transcribed By: Self Edit Transcribed Date: 04/15/2024 09:57 ET Narrative 04/15/2024 9:58 AM EST HISTORY: The patient is a 53-year-old female with dyspnea. FINDINGS: Sitting AP portable radiograph of the chest is mildly rotated to the left. The bony structures are of normal appearance. The cardiac and mediastinal contours are within normal limits allowing for patient rotation. The lungs and costophrenic angles are clear. Procedure Note Armen Oneal MD - 04/15/2024 HISTORY: The patient is a 53-year-old female with dyspnea. FINDINGS: Sitting AP portable radiograph of the chest is mildly rotated tothe left. The bony structures are of normal appearance. The cardiac andmediastinal contours are within normal limits allowing for patientrotation. The lungs and costophrenic angles are clear. IMPRESSION: No acute pulmonary disease. Code 84072 -------- FINAL REPORT -------- Dictated By: Armen Oneal Dictated Date: 04/15/2024 09:57 ET Assigned Physician: Armen Oneal Reviewed and Electronically Signed By: Armen Oneal Signed Date: 04/15/2024 09:58 ET Workstation ID: [id number] Transcribed By: Self Edit Transcribed Date: 04/15/2024 09:57 ET us Young Rdz MD IMG XR PROCEDURES Final Res ult * (ABNORMAL) [id number], RSV, Influenza A and B qualitative RT-PCR (04/14/2024 5:20 PM EST) Pathologist [facility] Influenza A PCR Detected(A) Not Detected LAB MICROBIOLOGY METHOD 04/14/2024 6:42 PM EST [facility] Influenza B PCR Not Detected Not Detected LAB MICROBIOLOGY METHOD 04/14/2024 6:42 PM EST [facility] RSV PCR Not Detected Not Detected LAB MICROBIOLOGY METHOD 04/14/2024 6:42 PM EST [facility] SARS COV-2 Not Detected Not Detected LAB MICROBIOLOGY METHOD 04/14/2024 6:42 PM EST [facility] Swab Both anterior nares / Unknown Non-blood Collection / Unknown 04/14/2024 5:20 PM EST 04/14/2024 5:50 PM EST [facility] - 04/14/2024 6:42 PM EST Disclaimer: ??Testing was performed using the [employer] GeneXpert Xpress SARS-CoV-2 _Flu_RSV PLUS PCR assay. ??The manner in which this information is used to guide patient care is the responsibility of the healthcare provider. ??Results should be correlated with the clinical history, epidemiological data, and other data available to the clinician evaluating the patient. ??Negative results do not preclude infection. ??This test has been authorized by the FDA under an Emergency Use Authorization (EUA). ??This test is only authorized for the duration of time the declaration that circumstances exist justifying the authorization of the emergency use of in vitro diagnostic tests for detection of SARS-CoV-2 virus and/or diagnosis of COVID-19 infection under section 564 (b) (1) of the Act, 21 U.S.C 360bbb-3 (b) (1), unless the authorization is terminated or revoked sooner. ?? Reference Range: Not Detected Fact sheet for Healthcare providers can be found at https://www.fda.gov/media/623866/download. ?? Fact sheet for Healthcare patients can be found at https://www.fda.gov/media/059189/download. Young Rdz MD LAB MICROBIOLOGY - GENERAL ORDERABLES Final Result Performing Organization Address [facility] Co de Phone Number [facility] [address] [place] [address], * Troponin I high sensitivity (04/14/2024 1:43 PM EST) [facility] High Sensitivity Troponin I 9 <=54 ng/L LAB CHEMISTRY METHOD 04/14/2024 2:32 PM EST [facility] Blood Venous blood specimen / Unknown Venipuncture / Unknown 04/14/2024 1:43 PM EST 04/14/2024 2:03 PM EST Narrative [facility] - 04/14/2024 2:32 PM EST High levels of biotin in samples may falsely decrease hsTroponin values. ??Use caution when interpreting hsTroponin results in patients taking biotin who exhibit renal impairment (eGFR <60) or in patients taking more than 20 mg/day of biotin. Young Rdz MD LAB BLOOD ORDERABLES Final Result Performing Organization Address [facility] Co de Phone Number [facility] [address] [place] [address], * ECG 12 lead (04/14/2024 1:34 PM EST) [facility] Ventricular Rate ECG 70 BPM GEMUSE Atrial Rate 70 BPM GEMUSE P-R Interval 166 ms GEMUSE QRS Duration 88 ms GEMUSE Q-T Interval 414 ms GEMUSE QTc 447 ms GEMUSE P Wave [place] 61 degrees GEMUSE R [place] 13 degrees GEMUSE T [place] 78 degrees GEMUSE ECG Interpretation Normal sinus rhythm Nonspecific T wave abnormality Abnormal ECG When compared with ECG of 10-NOV-2023 07:09, Criteria for Inferior infarct are no longer Present Nonspecific T wave abnormality no longer evident in Inferior leads Nonspecific T wave abnormality now evident in Lateral leads Confirmed by Radha CASTILLO JAMES ([id number]) on 04/14/2024 6:38:46 PM GEMUSE 04/14/2024 1:34 PM EST 04/14/2024 6:38 PM EST us Young Rdz MD ECG ORDERABLES Final Resul t GEMUSE * (ABNORMAL) CBC auto differential (04/14/2024 1:24 PM EST) WBC 2.9(L) 4.8 - 10.8 K/mcL LAB HEMETOLOGY METHOD 04/14/2024 2:45 PM [facility] RBC 5.00(H) 3.80 - 4.80 M/mcL LAB HEMETOLOGY METHOD 04/14/2024 2:45 PM [facility] Hemoglobin 13.1 11.5 - 16.0 g/dL LAB HEMETOLOGY METHOD 04/14/2024 2:45 PM [facility] Hematocrit 40.1 35.0 - 47.0 % LAB HEMETOLOGY METHOD 04/14/2024 2:45 PM [facility] MCV 81.0 79.0 - 98.0 FL LAB HEMETOLOGY METHOD 04/14/2024 2:45 PM [facility] MCH 26.5(L) 27.0 - 32.0 pcg LAB HEMETOLOGY METHOD 04/14/2024 2:45 PM [facility] MCHC 32.7 32.0 - 37.0 g/dL LAB HEMETOLOGY METHOD 04/14/2024 2:45 PM [facility] RDW 14.6 11.0 - 15.0 % LAB HEMETOLOGY METHOD 04/14/2024 2:45 PM [facility] Platelets 208 130 - 400 K/mcL LAB HEMETOLOGY METHOD 04/14/2024 2:45 PM [facility] MPV 12.4(H) 7.0 - 11.0 [place] LAB HEMETOLOGY METHOD 04/14/2024 2:45 PM [facility] NRBC 0.0 <1.0 % LAB HEMETOLOGY METHOD 04/14/2024 2:45 PM [facility] NRBC Absolute 0.00 <0.10 K/mcL LAB HEMETOLOGY METHOD 04/14/2024 2:45 PM [facility] Neutrophils Relative 56.2 % LAB HEMETOLOGY METHOD 04/14/2024 2:45 PM [facility] Lymphocytes Relative 28.6 % LAB HEMETOLOGY METHOD 04/14/2024 2:45 PM [facility] Monocytes Relative 14.6 % LAB HEMETOLOGY METHOD 04/14/2024 2:45 PM [facility] Eosinophils Relative 0.3 % LAB HEMETOLOGY METHOD 04/14/2024 2:45 PM [facility] Basophils Relative 0.3 % LAB HEMETOLOGY METHOD 04/14/2024 2:45 PM [facility] Immature Granulocytes Relative 0.0 % LAB HEMETOLOGY METHOD 04/14/2024 2:45 PM [facility] Neutrophils Absolute 1.65 1.50 - 7.00 K/mcL LAB HEMETOLOGY METHOD 04/14/2024 2:45 PM [facility] Lymphocytes Absolute 0.84(L) 1.00 - 5.00 K/mcL LAB HEMETOLOGY METHOD 04/14/2024 2:45 PM [facility] Monocytes Absolute 0.43 0.20 - 1.00 K/mcL LAB HEMETOLOGY METHOD 04/14/2024 2:45 PM EST [facility] Eosinophils Absolute 0.01 0.00 - 0.50 K/[facility] LAB HEMETOLOGY METHOD 04/14/2024 2:45 PM EST [facility] Basophils Absolute 0.01 0.00 - 0.20 K/[facility] LAB HEMETOLOGY METHOD 04/14/2024 2:45 PM EST [facility] Immature Granulocytes Absolute 0.00 0.00 - 0.03 K/[facility] LAB HEMETOLOGY METHOD 04/14/2024 2:45 PM EST [facility] Blood Venous blood specimen / Unknown Venipuncture / Unknown 04/14/2024 1:24 PM EST 04/14/2024 2:06 PM EST Young Rdz MD LAB BLOOD ORDERABLES Final Result Performing Organization Address City/[facility]/ZIP Co de Phone Number [facility] [address] [place] [address], [place] [phone] * Magnesium (04/14/2024 1:24 PM EST) [facility] Magnesium 2.1 1.9 - 2.6 mg/dL LAB CHEMISTRY METHOD 04/14/2024 2:52 PM EST [facility] Blood Venous blood specimen / Unknown Venipuncture / Unknown 04/14/2024 1:24 PM EST 04/14/2024 2:06 PM EST us Young Rdz MD LAB BLOOD ORDERABLES Final Result [facility] [address] [place] [address], [place] [phone] * Lipase (04/14/2024 1:24 PM EST) [facility] Lipase 23 13 - 75 unit/L LAB CHEMISTRY METHOD 04/14/2024 2:52 PM [facility] Blood Venous blood specimen / Unknown Venipuncture / Unknown 04/14/2024 1:24 PM EST 04/14/2024 2:06 PM EST us Young Rdz MD LAB BLOOD ORDERABLES Final Result [facility] [address] [place] [address], [place] [phone] * (ABNORMAL) Comprehensive metabolic panel (04/14/2024 1:24 PM EST) [facility] Sodium 138 133 - 145 mmol/L LAB CHEMISTRY METHOD 04/14/2024 2:52 PM [facility] Potassium 3.1(L) 3.5 - 5.5 mmol/L LAB CHEMISTRY METHOD 04/14/2024 2:52 PM [facility] Chloride 103 96 - 110 mmol/L LAB CHEMISTRY METHOD 04/14/2024 2:52 PM [facility] CO2 26 21 - 32 mmol/L LAB CHEMISTRY METHOD 04/14/2024 2:52 PM [facility] Anion Gap 9 3 - 11 LAB CHEMISTRY METHOD 04/14/2024 2:52 PM [facility] Glucose 92 70 - 100 mg/dL LAB CHEMISTRY METHOD 04/14/2024 2:52 PM [facility] BUN 10 5 - 25 mg/dL LAB CHEMISTRY METHOD 04/14/2024 2:52 PM [facility] Creatinine 0.68 0.50 - 1.10 mg/dL LAB CHEMISTRY METHOD 04/14/2024 2:52 PM [facility] eGFR 104 >=60 mL/min/1. 73m2 LAB CHEMISTRY METHOD 04/14/2024 2:52 PM [facility] Comment:Calculation based on the??Chronic Kidney Disease Epidemiology Collaboration (CKD-EPI) equation refit??without adjustment for race. BUN/Creatinine Ratio 14.7 LAB CHEMISTRY METHOD 04/14/2024 2:52 PM [facility] Calcium 8.9 8.5 - 10.5 mg/dL LAB CHEMISTRY METHOD 04/14/2024 2:52 PM [facility] AST (SGOT) 20 10 - 42 unit/L LAB CHEMISTRY METHOD 04/14/2024 2:52 PM [facility] ALT (SGPT) 12 10 - 60 unit/L LAB CHEMISTRY METHOD 04/14/2024 2:52 PM [facility] Alkaline Phosphatase 71 42 - 121 unit/L LAB CHEMISTRY METHOD 04/14/2024 2:52 PM [facility] Total Protein 7.7 6.0 - 8.0 g/dL LAB CHEMISTRY METHOD 04/14/2024 2:52 PM [facility] Albumin 3.8 3.2 - 5.0 g/dL LAB CHEMISTRY METHOD 04/14/2024 2:52 PM [facility] Total Bilirubin 0.7 0.0 - 1.4 mg/dL LAB CHEMISTRY METHOD 04/14/2024 2:52 PM [facility] Blood Venous blood specimen / Unknown Venipuncture / Unknown 04/14/2024 1:24 PM EST 04/14/2024 2:06 PM EST us Young Rdz MD LAB BLOOD ORDERABLES Final Result [facility] [address] [place] [address], * SCREENING MAMMOGRAPHY BI 2-VIEW BREAST INC CAD (05/25/2022 12:52 PM EDT) Anatomical Region Laterality Modality Radiographic Mariana ging 02/15/2021 10:1 3 AM EST Narrative 05/26/2022 12:38 PM EDT This is a summary report. The complete report is available in the patient's medical record. If you cannot access the medical record, please contact the sending organization for a detailed fax or copy. Full field digital screening mammography, using both 2D mammography and tomosynthesis, reviewed with CAD and compared to previous. ??The breasts are composed of fatty and fibroglandular tissue. ??No suspicious mass, architectural distortion or suspicious calcifications are identified. IMPRESSION: : No mammographic evidence of malignancy. BIRADS 1-Negative; N. 5 year breast cancer risk assessment 1.3 % Lifetime breast cancer risk assessment 8.2 % Breast cancer risk category Low (<15%) Procedure Note Hasmukh Graf MD - 04/09/2023 This is a summary report. The complete report is available in thepatient's medical record. If you cannot access the medical record, pleasecontact the sending organization for a detailed fax or copy. Full field digital screening mammography, using both 2D mammography andtomosynthesis, reviewed with CAD and compared to previous. The breastsare composed of fatty and fibroglandular tissue. No suspicious mass,architectural distortion or suspicious calcifications are identified. IMPRESSION: : No mammographic evidence of malignancy. BIRADS 1-Negative; N. 5 year breast cancer risk assessment 1.3 % Lifetime breast cancer risk assessment 8.2 % Breast cancer risk category Low (<15%) Result [facility] Matthew Licona MD IMG XR PROCEDURES Final Result * HIV Screening (05/25/2022) [facility] HIV Screening Abstracted Historical Provider HEALTH MAINTENANCE Final Result * Hepatitis C Screening (05/25/2022) [facility] Hepatitis C Screening Abstracted Historical Provider HEALTH MAINTENANCE Final Result * Lipid panel (06/03/2021) [facility] LDL/HDL Ratio 3 0 - 4 Triglycerides 131 0 - 150 mg/dL Cholesterol 162 0 - 200 mg/dL HDL 51 >=40 mg/dL LDL Cholesterol 85 0 - 100 mg/dL Blood Venous blood specimen / Unknown Historical Provider LAB BLOOD ORDERABLES Briseida l Result * Cervical Cancer Screening: HPV (05/14/2019) [facility] Cervical Cancer Screening: HPV Negative, Abstracted Historical Provider HEALTH MAINTENANCE Final Result from Last 3 Months or Most Recently Relevant to Health Maintenance Additional Health Concerns Infection Onset Date Last Indicated Influenza 04/14/2024 04/14/2024 Insurance PLAN Care Teams Freight Rate Clerk Relationship Specialty Start Date End Date Matthew Licona MD [address] [place] [phone] PCP - General Internal Medicine 02/07/24
--- OUTSIDE RECORDS SUMMARY | 2024-04-17 13:57 | XMS_ITS | Encounter Summary ---
Author Organization [facility] [place] [address] Care Team Providers Care Anvil Seating Press Operator Name Role Phone Matthew Licona MD Primary Care Provider [phone] Encounter Details Date Type Department Care Team (Late st Contact Info) Description 04/03/2024 Telephone Adult Medicine [address] [phone] Matthew Licona MD [address] [place] [phone] Social History Tobacco Use Types Packs/Day Years [...] as of this encounter Progress Notes * Purvi Bloom RN - 04/07/2024 8:29 AM EST Spoke with the pt and advised of the appt per provider. She will check with her daughter for transportation and if not able to come in will contact the office * Matthew Licona MD - 04/04/2024 5:42 PM EST Please inform the patient as this is on our end it will not effect her contract Can we book her with me 04/11/2024 at 10:00 am * Floridalma Rika - 04/03/2024 5:04 PM EST Patient call requires triage: Symptoms patient is presenting: patient spoke with dr licona on the 03/14, at that time dr. Licona saidhe would contact patient. Patient was never contacted. This was supposed to be a tele however was not seen for messenger floorperson. Patient needs to be seen by l[facility] for medication. Dr. Liocna did not have any openings until June. Booked next availbe appointment with [facility] with 05/16, for prescription purpose. Patient wants care team to please contact regarding setting up future tele health appointment and to discuss appointment time frame qualifications. Patient is worried regarding mediation for the 04/08/2024 How long has patient had these symptoms?: For ALL patients calling to schedule any appointment (routine, sick visit, follow up, consult, etc.) in the outpatient setting please ask the following questions: Do you have fever of higher than 101, sore throat with difficulty swallowing or severe shortness ofbreath? no If YES to any of these above symptoms, send a message to triage and do not book. Red dot. If no, an audio or video visit should be booked. Have you had close contact with someone with Coronavirus in the last 14 days? no Have you traveled abroad? no Have you traveled recently to another state outside of [place], [place], [place], [place], [place], [place], [place]? no o If yes, did you quarantine for 14 days or have a negative covid test? no If yes to any of the above, patient is not to be scheduled in office until after 14 day quarantine or negative covid test. If pain or injury related was it due to an accident at work or from a motor vehicle accident? If yes, date of accident/Injury: No If yes, gather 3rd alliance party insurance information Third Alliance Party Information: not applicable PCP: Matthew Licona MD Payor: [employer] Best PLAN / Plan: [employer] MEDICAID / Product Type: *No Product type* / documented in this encounter Plan of Treatment Upcoming Encounters Date Type Department Care Team (Late st Contact Info) Description 05/16/2024 12:00 PM EDT Office Visit Adult Medicine [facility] [address] [place] [phone] Myles Frausto PA [address] [place] [phone] 09/25/2024 10:30 AM EDT Consult Bariatric Surgery - [place] [address] [phone] Yi Fitzpatrick MD [address] [phone] documented as of this encounter Visit Diagnoses Not on filedocumented in this encounter Care Teams Anvil Seating Press Operator Relationship Specialty Start Date End Date Matthew Licona MD [address] [place] [phone] PCP - General Internal Medicine 02/07/24 documented as of this encounter
--- OUTSIDE RECORDS SUMMARY | 2024-04-17 13:57 | XMS_ITS | Encounter Summary ---
Author Organization [facility] Address [address] [place] [address] Care Team Providers Care Psychology Associate Name Role Phone Matthew Licona MD Primary Care Provider [phone] Encounter Details Date Type Department Care Team (Late st Contact Info) Description 04/04/2024 Telephone Adult Medicine [address] [phone] Marta Mcfadden MA Social History Tobacco Use Types Packs/Day Years [...] as of this encounter Progress Notes * Marta Mcfadden MA - 04/04/2024 10:43 AM EST FYI to PCP Pt on [facility] for Oxycodone Last appt 12/21/23 next appt scheduled 05/16/24 (next available) Pt no showed 03/14/24 Pt asking if this will affect her controlled meds refill? documented in this encounter Plan of Treatment Upcoming Encounters Date Type Department Care Team (Late st Contact Info) Description 05/16/2024 12:00 PM EDT Office Visit Adult Medicine [facility] [address] [place] [phone] Myles Frausto PA [address] [place] [address] 09/25/2024 10:30 AM EDT Consult Bariatric Surgery - [place] [address] [phone] Yi Fitzpatrick MD 175 [facility] Kishore [address] [place] [phone] documented as of this encounter Visit Diagnoses Not on filedocumented in this encounter Additional Health Concerns Infection Onset Date Last Indicated Resolved Time Respiratory Rule-Out 04/14/2024 04/14/2024 025 6:42 PM EST COVID-19 Rule-Out 04/14/2024 04/14/2024 04/14/2024 6:42 PM EST Influenza 04/14/2024 04/14/2024 documented as of this encounter Care Teams Psychology Associate Relationship Specialty Start Date End Date Matthew Licona MD [address] [place] [id number] PCP - General Internal Medicine 02/07/24 documented as of this encounter
--- OUTSIDE RECORDS SUMMARY | 2024-04-17 13:57 | XMS_ITS | Encounter Summary ---
Author Organization [facility] [address] Care Team Providers Care Roof Assembler Name Role Phone Matthew Licona MD Primary Care Provider [phone] Reason for Visit * Reason Onset Date Comments Release of Information 04/03/2024 Forms/questionnaires 04/03/2024 Encounter Details Date Type Department Care Team (Late st Contact Info) Description 04/03/2024 Telephone Adult Medicine [address] [phone] Matthew Licona MD [address] [place] [phone] Release of Information; Forms/questionnaires Social History Tobacco Use Types Packs/Day Years [...] as of this encounter Progress Notes * Floridalma Meléndez - 04/17/2024 1:42 PM EST Patient was told to fill out release if wanting to release information. Regarding card. Patient wastold she needs to go to services that offer medical card. * Floridalma Rika - 04/03/2024 5:10 PM EST Patient call requires triage: Symptoms patient is presenting: patient is looking to fill out release then to get her medical cardfor future treament. How long has patient had these symptoms?: [...] traveled recently to another state outside of [place], [place], [place], [place], [place], [place], [place]? no o If yes, did you quarantine [...] of accident/Injury: No If yes, gather 3rd green party insurance information Third Alliance Party Information: not applicable PCP: Matthew Licona MD Payor: [employer] HEALTH PLAN / Plan: [employer] MEDICAID / Product Type: *No Product type* / documented in this encounter Plan of Treatment Upcoming Encounters Date Type Department Care Team (Late st Contact Info) Description 05/16/2024 12:00 PM EDT Office Visit Adult Medicine [address] [phone] Myles Frausto PA [address] [place] [address] 09/25/2024 10:30 AM EDT Consult Bariatric Surgery - [place] 175 [facility] [address] [place] [phone] Yi Fitzpatrick MD 175 [facility] [address] [place] [address] documented as of this encounter Visit Diagnoses Not on filedocumented in this encounter Additional Health Concerns Infection Onset Date Last Indicated Resolved Time Respiratory Rule-Out 04/14/2024 04/14/2024 025 6:42 PM EST COVID-19 Rule-Out 04/14/2024 04/14/2024 04/14/2024 6:42 PM EST Influenza 04/14/2024 04/14/2024 documented as of this encounter Care Teams Roof Assembler Relationship Specialty Start Date End Date Matthew Licona MD [address] [place] [phone] PCP - General Internal Medicine 02/07/24 documented as of this encounter
--- OUTSIDE RECORDS SUMMARY | 2024-04-17 13:57 | XMS_ITS | Encounter Summary ---
Author Organization [facility] Address [address] [place] [address] Care Team Providers Care Personnel Placement Specialist Name Role Phone Matthew Licona MD Primary Care Provider [phone] Reason for Visit * Reason Comments Vomiting Diarrhea Encounter Details Date Type Department Care Team (Late st Contact Info) Description 04/14/2024 3:27 PM EST - 04/15/2024 12:05 AM EST Emergency [facility] Emergency [address] [place] [id number] Young Rdz MD [address] [address] Influenza A (Primary Dx); Hypokalemia; Diverticulitis Discharge Disposition: Home or Self Care Social History Tobacco Use Types Packs/Day Years [...] PM EST documented as of this encounter Last Filed Vital Signs Vital Sign Reading [...] Mass Index 46.45 04/14/2024 12:09 PM EST documented in this encounter Discharge Instructions * Discharge Instructions* KIERA Granados - 04/14/2024 10:54 PM EST Thank you for choosing [facility]'s Emergency Department for your care today. Your exam, laboratory evaluation, and CT today showed no evidence of an acute requiring surgical intervention, admission to the hospital or continued ED observation, and it is safe to discharge you home. Your laboratory evaluation did test positive for influenza which is likely the source of the majority of her symptoms, however your CT also showed that you are suffering from a condition known as diverticulitis, this is an infection of small outpouchings of your large intestine. This is likely causing your lower abdominal pain. We are treating your diverticulitis with 2 antibiotics, please take Flagyl and ciprofloxacin as prescribed until it is finished. For your viral symptoms associated with your influenza infection, You may take alternating (staggered) doses of ibuprofen 600mg and Tylenol 1000mg every 4 hours as needed for pain., Please stay well hydrated and get plenty of rest. Take Zofran as directed as needed for additional nausea. Please follow up with your primary care physician for re-evaluation, additional management of your symptoms, and continued preventative care. If you do not have a primary care physician, please call the [facility] at [phone] toestablish a new primary care physician. Please return to the emergency department if you develop a sudden severe change in your symptoms, afever over 100.4,, severe or recurrent vomiting,, or a sudden increase in pain, or if you experience any other new or worsening symptoms or concerns. * Attachments The following attachments cannot be sent through Care Everywhere. * Diverticulitis ([place]) * Diverticulosis and Diverticulitis: General Info ([place]) * Influenza ([place]) documented in this encounter Medications at Time of Discharge albuterol HFA (Ventolin HFA) 90 mcg/actuation inhaler INHALE 2 PUFFS INTO THE LUNGS EVERY 4 HOURS NEEDED FOR COUGH OR WHEEZING. 06/12/2023 atorvastatin (LIPITOR) 20 mg tablet Take 1 Tablet by mouth at bedtime. 12/21/2023 ciprofloxacin (CIPRO) 500 mg tablet Take 1 tablet (500 mg total) by mouth 2 (two) times a day for 10 days. 20 tablet 04/14/2024 cyanocobalamin, vitamin B-12, 5,000 mcg tablet,disintegratin g Take 1 Tablet by mouth daily. 03/30/2023 fluticasone propionate (FLONASE) 50 mcg/actuation nasal spray 2 sprays each nostril once a day for 10 days. 09/14/2021 gabapentin (NEURONTIN) 300 mg capsule Take 3 Capsules by mouth 3 times daily. 12/21/2023 hydroCHLOROthiazide (HYDRODIURIL) 25 mg tablet Take 1 Tablet by mouth daily. 12/21/2023 lidocaine (XYLOCAINE) 5 % ointment Apply 1 g topically 3 times daily. 03/30/2023 lisinopriL (PRINIVIL,ZESTRIL) 10 mg tablet Take 1 Tablet by mouth daily. 12/21/2023 loratadine (CLARITIN) 10 mg tablet Take 1 Tablet by mouth daily for 30 days. 09/14/2021 metroNIDAZOLE (FLAGYL) 500 mg tablet Take 1 tablet (500 mg total) by mouth 2 (two) times a day. Do not use mouth wash or consume alcohol until 48 hours after last dose 14 tablet 04/14/2024 nitroglycerin (NITROSTAT) 0.[address] 1 Tablet under the tongue every 5 minutes as needed for Chest pain. 05/31/2023 5 nystatin (MYCOSTATIN) 100,000 unit/gram powder Apply 1 g topically 2 times daily. 07/03/2022 ondansetron (ZOFRAN) 4 mg tablet Take 1 tablet (4 mg total) by mouth every 8 (eight) hours if needed for nausea. for nausea 20 tablet 3 01/15/2024 ondansetron ODT (ZOFRAN-ODT) 4 mg disintegrating tablet Let 1 tablet dissolve under the tongue three times daily as needed for nausea or vomiting. 10 tablet 04/14/2024 5 oxyCODONE-acetaminop hen (PERCOCET) 10-325 mg per tabletIndications:Os teoarthritis of left hip, unspecified osteoarthritis type Take 1 tablet by mouth 4 (four) times a day. Max Daily Amount: 4 tablets 112 tablet 04/08/2024 semaglutide (Wegovy) 1 mg/0.5 mL injection pen Inject 1 mg into the skin every 7 days. 12/21/2023 semaglutide (Wegovy) 1.7 mg/0.75 mL injection pen Inject 1.7 mg into the skin once a week. 10/31/2023 valACYclovir (VALTREX) 500 mg tablet Take 1 Tablet by mouth 2 times daily. TAKE 1 TABLET BY MOUTH TWICE A DAY FOR 3 DAYS Strength: 500 mg 07/03/2022 documented as of this encounter Ordered Prescriptions Prescription Sig Dispense Quantity Refills Last Filled Start Date End Date ondansetron ODT (ZOFRAN-ODT) 4 mg disintegrating tablet Let 1 tablet dissolve under the tongue three times daily as needed for nausea or vomiting. 10 tablet 04/14/2024 5 metroNIDAZOLE (FLAGYL) 500 mg tablet Take 1 tablet (500 mg total) by mouth 2 (two) times a day. Do not use mouth wash or consume alcohol until 48 hours after last dose 14 tablet 04/14/2024 ciprofloxacin (CIPRO) 500 mg tablet Take 1 tablet (500 mg total) by mouth 2 (two) times a day for 10 days. 20 tablet 04/14/2024 5 documented in this encounter Discharge Disposition Disposition Code Departure Means Destination Comment s Home or Self Snf documented in this encounter Progress Notes * Mayur Matthews RN - 04/14/2024 4:00 PM EST Patient stating the need to have a bowel movement. Patient placed on bedpan due to increased weakness. Patient had a small amount of loose, watery stool that was malodorous. Rashmi care provided. Stretcher locked, at lowest position. Gurney rails up x2. Patient instructed not to get out of bed without assistance. Call schwarz within reach. * Radhika Jo RN - 04/14/2024 12:11 PM EST Pt reports n/v/d since Sunday with generalized weakness and back pain and abd pain. * Moriah Castellon RN - 04/14/2024 12:04 PM EST Per EMS patient has had vomiting and diarrhea since last Sunday. * Young Rdz MD - 04/14/2024 12:02 PM EST Emergency Medicine Note Patient Name: Lali Prieto Initial Evaluation: 04/14/2024 : 1970 Patient's PCP: Matthew Licona MD Emergency Physician: Young Rdz MD History of Present Illness Chief Complaint: Chief Complaint Patient presents with ??? Vomiting ??? Diarrhea HPI: This is a 53-year-old female with a history of hypertension morbid obesity diabetes now presenting for about 6 days of nausea vomiting diarrhea also lower abdominal pain. Also some mild shortness of breath. Not able to tolerate p.o. She has a history of cholecystectomy and . Chills but no fevers. Extreme malaise. ROS: I have performed a ROS with the pertinent positives and negatives documented in the history ofpresent illness. Previous History Past Medical History: Diagnosis Date ??? HTN (hypertension) 01/02/2012 DX:HTN (hypertension) ??? Nephrolithiasis 01/03/2011 DX:Nephrolithiasis ??? Obesity, unspecified 12/10/2006 DX:Obesity, unspecified ??? Osteoarthritis of left hip 01/02/2012 DX:Osteoarthritis of left hip Past Surgical History: Procedure Laterality Date ??? BREAST SURGERY Bilateral PROCEDURE: [place] UNLISTED PROCEDURE BREAST; COMMENT: 2007 excisional biopsy fibroadenoma ??? SECTION PROCEDURE: HISTORICAL Social History Tobacco Use ??? Smoking status: Never ??? Smokeless tobacco: Never Substance Use Topics ??? Alcohol use: Not Currently ??? Drug use: No Family History Problem Relation Name Age of Onset ??? Other (Other: heart problems) Mother ??? Prostate cancer Father 60.00 ??? Colon cancer Father 60.00 ??? Other cancer Maternal Grandmother cervical cancer ??? Lung cancer Paternal Grandfather ??? Heart attack Aunt ??? Breast cancer Other m. niece ??? Ovarian cancer Neg Hx ??? Pancreatic cancer Neg Hx ??? Uterine cancer Neg Hx is allergic to amoxicillin-pot clavulanate and doxycycline. No current facility-administered medications on file prior to encounter. Current Outpatient Medications on File Prior to Encounter Medication Sig Dispense Refill ??? albuterol HFA (Ventolin HFA) 90 mcg/actuation inhaler INHALE 2 PUFFS INTO THE LUNGS EVERY 4 HOURS NEEDED FOR COUGH OR WHEEZING. ??? atorvastatin (LIPITOR) 20 mg tablet Take 1 Tablet by mouth at bedtime. ??? cholestyramine (QUESTRAN) 4 gram packet Take 1 Packet by mouth 2 times daily (with meals) for 30 days. If diarrhea remains a problem after 1 week, may increase to 3 times daily with meals. Mix powder into orange juice or another liquid to take. ??? cyanocobalamin, vitamin B-12, 5,000 mcg tablet,disintegrating Take 1 Tablet by mouth daily. ??? fluticasone propionate (FLONASE) 50 mcg/actuation nasal spray 2 sprays each nostril once a day for 10 days. ??? gabapentin (NEURONTIN) 300 mg capsule Take 3 Capsules by mouth 3 times daily. ??? hydroCHLOROthiazide (HYDRODIURIL) 25 mg tablet Take 1 Tablet by mouth daily. ??? lidocaine (XYLOCAINE) 5 % ointment Apply 1 g topically 3 times daily. ??? lisinopriL (PRINIVIL,ZESTRIL) 10 mg tablet Take 1 Tablet by mouth daily. ??? loratadine (CLARITIN) 10 mg tablet Take 1 Tablet by mouth daily for 30 days. ??? nitroglycerin (NITROSTAT) 0.[address] 1 Tablet under the tongue every 5 minutes as needed for Chest pain. ??? nystatin (MYCOSTATIN) 100,000 unit/gram powder Apply 1 g topically 2 times daily. ??? ondansetron (ZOFRAN) 4 mg tablet Take 1 tablet (4 mg total) by mouth every 8 (eight) hours if needed for nausea. for nausea 20 tablet 3 ??? oxyCODONE-acetaminophen (PERCOCET) 10-325 mg per tablet Take 1 tablet by mouth 4 (four) times aday. Max Daily Amount: 4 tablets 112 tablet 0 ??? semaglutide (Wegovy) 1 mg/0.5 mL injection pen Inject 1 mg into the skin every 7 days. ??? semaglutide (Wegovy) 1.7 mg/0.75 mL injection pen Inject 1.7 mg into the skin once a week. ??? valACYclovir (VALTREX) 500 mg tablet Take 1 Tablet by mouth 2 times daily. TAKE 1 TABLET BY MOUTH TWICE A DAY FOR 3 DAYS Strength: 500 mg ??? [DISCONTINUED] oxyCODONE-acetaminophen (PERCOCET) 10-325 mg per tablet Take 1 tablet by mouth 4(four) times a day. Max Daily Amount: 4 tablets 112 tablet 0 Physical Exam ED Triage Vitals [04/14/24 1209] Temp Heart Rate Resp BP 37.4 ??C (99.3 ??F) 85 20 (!) 150/91 SpO2 Temp Source Heart Rate Source Patient Position 100 % Oral Monitor Sitting BP Location FiO2 (%) Left arm;Lower -- General: Obese female mild distress HEENT: PERRL, EOMI, external ears and nose appear unremarkable, airway is patent dry mucosa Neck: Supple, full range of motion, no meningismus, no JVD Chest: Clear to auscultation; no evidence of respiratory distress Circulatory: The rate and rhythm , no murmurs rubs or gallops Abdomen: Tenderness right lower quadrant and upper abdomen Extremities: Normal ROM, No edema, ranging all extremities without difficulty Skin: Warm and dry, well-perfused , no rashes Neuro: Alert and oriented x 3. no motor or sensory deficits Psyche: Normal affect Results Labs Reviewed COMPREHENSIVE METABOLIC PANEL - Abnormal Result Value Sodium 138 Potassium 3.1 (*) Chloride 103 CO2 26 Anion Gap 9 Glucose 92 BUN 10 Creatinine 0.68 eGFR 104 BUN/Creatinine Ratio 14.7 Calcium 8.9 AST (SGOT) 20 ALT (SGPT) 12 Alkaline Phosphatase 71 Total Protein 7.7 Albumin 3.8 Total Bilirubin 0.7 CBC WITH AUTO DIFFERENTIAL - Abnormal WBC 2.9 (*) RBC 5.00 (*) Hemoglobin 13.1 Hematocrit 40.1 MCV 81.0 MCH 26.5 (*) MCHC 32.7 RDW 14.6 Platelets 208 MPV 12.4 (*) NRBC 0.0 NRBC Absolute 0.00 Neutrophils Relative 56.2 Lymphocytes Relative 28.6 Monocytes Relative 14.6 Eosinophils Relative 0.3 Basophils Relative 0.3 Immature Granulocytes Relative 0.0 Neutrophils Absolute 1.65 Lymphocytes Absolute 0.84 (*) Monocytes Absolute 0.43 Eosinophils Absolute 0.01 Basophils Absolute 0.01 Immature Granulocytes Absolute 0.00 MAGNESIUM - Normal Magnesium 2.1 LIPASE - Normal Lipase 23 TROPONIN I HIGH SENSITIVITY - Normal High Sensitivity Troponin I 9 Narrative: High levels of biotin in samples may falsely decrease hsTroponin values. Use caution when interpreting hsTroponin results in patients taking biotin who exhibit renal impairment (eGFR <60) or in patients taking more than 20 mg/day of biotin. [id number], RSV, FLU A AND B QUALITATIVE RT-PCR, INTERNAL LAB CBC AND DIFFERENTIAL Narrative: The following orders were created for panel order CBC and differential. Procedure Abnormality Status --------- ------ CBC auto differential[[id number]] Abnormal Final result Please view results for these tests on the individual orders. Abnormal Labs Reviewed COMPREHENSIVE METABOLIC PANEL - Abnormal; Notable for the following components: Result Value Potassium 3.1 (*) All other components within normal limits CBC WITH AUTO DIFFERENTIAL - Abnormal; Notable for the following components: WBC 2.9 (*) RBC 5.00 (*) MCH 26.5 (*) MPV 12.4 (*) Lymphocytes Absolute 0.84 (*) All other components within normal limits XR Chest 1 View (Results Pending) I have discussed the incidental/abnormal imaging and/or lab abnormalities with the patient and haveinstructed them the need for further evaluation and workup with their primary care doctor. I have provided the patient with a paper copy of the abnormality. The laboratory results, imaging results and other diagnostic exam results were reviewed in the EMR. EKG Interpretation Critical Care Time None Medical Decision Making Medications sodium chloride 0.9 % bolus 1,000 mL (has no administration in time range) ondansetron (PF) (ZOFRAN) injection 4 mg (has no administration in time range) ED Course as of 04/14/242012Apr 14, 2024 191 Some mild hypokalemia. Not clinically significant. Flu a positive. Patient was hydrated we will check CT due to diffuse lower abdominal pain. [JL] 2012 Signed out to carlos meehan d/c [JL] ED Course User Index [JL] Young Rdz MD Clinical Impressions as of 04/14/242012 Nausea and vomiting, unspecified vomiting type Influenza A Hypokalemia Differential diagnosis of this abdominal pain includes but is not limited to: Kidney stone, diverticulitis, abdominal aortic aneurysm, ovarian cyst, constipation, occult neoplasm, enteritis, appendicitis, gastritis, cholecystitis, gallstones, pancreatitis, unspecified colitis including infectious and noninfectious, mesenteric ischemia Procedures Procedures Diagnosis No diagnosis found. Disposition Data Unavailable ED Prescriptions None Physician Attestation Young Rdz MD 04/14/24 1706 Young Rdz MD 04/14/24 1721 Young Rdz MD 04/14/242012 documented in this encounter Plan of Treatment Upcoming Encounters Date Type Department Care Team (Late st Contact Info) Description 05/16/2024 12:00 PM EDT Office Visit Adult Medicine [address] [phone] Myles Frausto PA [address] [place] [address] 09/25/2024 10:30 AM EDT Consult Bariatric Surgery - [address] [place] [address] Yi Fitzpatrick MD [address] [place] [address] documented as of this encounter Procedures Procedure Name Priority Date/Time Associated Diagnosis Comments ECG ANNOTATED 04/16/2024 URINALYSIS WITH REFLEX MICROSCOPIC AND CULTURE STAT 04/14/2024 9:18 PM EST MOELLER URINE CULTURE TUBE STAT 04/14/2024 9:18 PM EST URINALYSIS WITH REFLEX MICROSCOPIC AND CULTURE STAT 04/14/2024 9:[address] ABDOMEN PELVIS W CONTRAST STAT 04/14/2024 7:01 PM EST XR CHEST 1 VIEW STAT 04/14/2024 5:33 PM EST [id number], RSV, FLU A AND B QUALITATIVE RT-PCR, INTERNAL LAB STAT 04/14/2024 5:20 PM EST TROPONIN I HIGH SENSITIVITY STAT 04/14/2024 1:43 PM EST ECG 12-LEAD STAT 04/14/2024 1:34 PM EST CBC WITH AUTO DIFFERENTIAL STAT 04/14/2024 1:24 PM EST CBC AND DIFFERENTIAL STAT 04/14/2024 1:24 PM EST MAGNESIUM STAT 04/14/2024 1:24 PM EST LIPASE STAT 04/14/2024 1:24 PM EST COMPREHENSIVE METABOLIC PANEL STAT 04/14/2024 1:24 PM EST documented in this encounter Results * ECG-Annotated (04/16/2024) us Provider Onbase MD ECG ORDERABLES Final Result * Moeller urine culture tube (04/14/2024 9:18 PM EST) Pathologist [facility] [place] Extra Tube Hold for add-ons. 04/14/2024 11:01 PM [facility] Comment:Auto resulted. Urine Urine specimen obtained by clean catch procedure / Unknown Non-blood Collection / Unknown 04/14/2024 9:18 PM EST 04/14/2024 9:36 PM EST us Babak QURESHI LAB URINE ORDERABLES Final Resul t [facility] [address] [place] [address], [place] [phone] * (ABNORMAL) Urinalysis with reflex microscopic and culture (04/14/2024 9:18 PM EST) [facility] Specific [place] Urine >1.045(H) 1.003 - 1.030 LAB URINALYSIS - AUTOMATED METHOD 04/14/2024 10:15 PM [facility] pH, Urine 5.5 5.0 - 8.0 pH LAB URINALYSIS - AUTOMATED METHOD 04/14/2024 10:15 PM [facility] Leukocytes, Urine Negative Negative LAB URINALYSIS - AUTOMATED METHOD 04/14/2024 10:15 PM [facility] Nitrite, Urine Negative Negative LAB URINALYSIS - AUTOMATED METHOD 04/14/2024 10:15 PM [facility] Protein, Urine 30(A) <=Trace mg/dL LAB URINALYSIS - AUTOMATED METHOD 04/14/2024 10:15 PM [facility] Glucose, Urine Negative Negative mg/dL LAB URINALYSIS - AUTOMATED METHOD 04/14/2024 10:15 PM [facility] Ketones, Urine 40(A) Negative mg/dL LAB URINALYSIS - AUTOMATED METHOD 04/14/2024 10:15 PM [facility] Urobilinogen , Urine 1.0 0.2 - 1.0 mg/dL LAB URINALYSIS - AUTOMATED METHOD 04/14/2024 10:15 PM [facility] Bilirubin, Urine Negative Negative LAB URINALYSIS - AUTOMATED METHOD 04/14/2024 10:15 PM [facility] Blood, Urine Negative Negative LAB URINALYSIS - AUTOMATED METHOD 04/14/2024 10:15 PM [facility] RBC, Urine 2.7 0 - 4 /HPF LAB URINALYSIS - AUTOMATED METHOD 04/14/2024 10:15 PM [facility] WBC, Urine 3.3 0 - 4 /HPF LAB URINALYSIS - AUTOMATED METHOD 04/14/2024 10:15 PM [facility] Squamous Epithelial, Urine 88(H) 0 - 60 /LPF LAB URINALYSIS - AUTOMATED METHOD 04/14/2024 10:15 PM [facility] Bacteria, Urine Negative Negative /HPF LAB URINALYSIS - AUTOMATED METHOD 04/14/2024 10:15 PM [facility] Hyaline Casts, Urine 3.0 0 - 3 /LPF LAB URINALYSIS - AUTOMATED METHOD 04/14/2024 10:15 PM [facility] Urine Urine specimen obtained by clean catch procedure / Unknown Non-blood Collection / Unknown 04/14/2024 9:18 PM EST 04/14/2024 9:36 PM EST us Babak QURESHI LAB URINE ORDERABLES Final Resul t [facility] [address] [place] [address], [place] [phone] * CT Abdomen Pelvis w Contrast (04/14/2024 [...] by: Helio Amador MD on 04/14/2024 20:19:44 Young Rdz MD IMG CT PROCEDURES Final Res ult * XR Chest 1 View (04/14/2024 5:33 PM EST) Anatomical Region Laterality Modality Body Radiographic Mariana ging 04/15/2024 9:57 AM EST Impressions 04/15/2024 9:58 AM EST No acute pulmonary disease. Code 36715 -------- FINAL REPORT -------- Dictated By: Armen Oneal Dictated Date: 04/15/2024 09:57 ET Assigned Physician: Armen Oneal Reviewed and Electronically Signed By: Armen Oneal Signed Date: 04/15/2024 09:58 ET Workstation ID: [id number] Transcribed By: Self Edit Transcribed Date: 04/15/2024 [...] clear. IMPRESSION: No acute pulmonary disease. Code 21886 -------- FINAL REPORT -------- Dictated By: Armen Oneal Dictated Date: 04/15/2024 09:57 ET Assigned Physician: Armen Oneal Reviewed and Electronically Signed By: Armen Oneal Signed Date: 04/15/2024 09:58 ET Workstation ID: [id number] Transcribed By: Self Edit Transcribed Date: 04/15/2024 09:57 ET us Young Rdz MD IMG XR PROCEDURES Final Res ult * (ABNORMAL) [id number], RSV, Influenza A and B qualitative RT-PCR (04/14/2024 5:20 PM EST) Influenza A PCR Detected(A) Not Detected LAB MICROBIOLOGY METHOD 04/14/2024 6:42 PM EST [facility] Influenza B PCR Not Detected Not Detected LAB MICROBIOLOGY METHOD 04/14/2024 6:42 PM EST [facility] RSV PCR Not Detected Not Detected LAB MICROBIOLOGY METHOD 04/14/2024 6:42 PM EST [facility] SARS COV-2 Not Detected Not Detected LAB MICROBIOLOGY METHOD 04/14/2024 6:42 PM EST [facility] Swab Both anterior nares / Unknown Non-blood Collection / Unknown 04/14/2024 5:20 PM EST 04/14/2024 5:50 PM EST Narrative [facility] - 04/14/2024 6:42 PM EST Disclaimer: ??Testing was performed using the [employer] GeneXpert Xpress SARS-CoV-2 _Flu_RSV PLUS PCR assay. [...] for Healthcare providers can be found at https://www.fda.gov/media/130548/download. ?? Fact sheet for Healthcare patients can be found at https://www.fda.gov/media/949949/download. us Young Rdz MD LAB MICROBIOLOGY - GENERAL ORDERABLES Final Result [facility] [address] [place] [address], * Troponin I high sensitivity (04/14/2024 1:43 PM EST) Pathologist [facility] [place] High Sensitivity Troponin I 9 <=54 ng/L LAB CHEMISTRY METHOD 04/14/2024 2:32 PM EST [facility] Blood Venous blood specimen / Unknown Venipuncture / Unknown 04/14/2024 1:43 PM EST 04/14/2024 2:03 PM EST Narrative [facility] - 04/14/2024 2:32 PM EST High levels of biotin in samples may falsely decrease hsTroponin values. ??Use caution when interpreting hsTroponin results in patients taking biotin who exhibit renal impairment (eGFR <60) or in patients taking more than 20 mg/day of biotin. us Young Rdz MD LAB BLOOD ORDERABLES Final Result [facility] [address] [place] [address], [place] [phone] * ECG 12 lead (04/14/2024 1:34 PM EST) Ventricular Rate ECG 70 BPM GEMUSE Atrial Rate 70 BPM GEMUSE P-R Interval 166 ms GEMUSE QRS Duration 88 ms GEMUSE Q-T Interval 414 ms GEMUSE QTc 447 ms GEMUSE P Wave [place] 61 degrees GEMUSE R [place] 13 degrees GEMUSE T [place] 78 degrees GEMUSE ECG Interpretation Normal sinus [...] 1:34 PM EST 04/14/2024 6:38 PM EST Young Rdz MD ECG ORDERABLES Final Resul t Performing Organization Address City/[facility]/ZIP Co de Phone Number GEMUSE * (ABNORMAL) CBC auto differential (04/14/2024 1:24 PM EST) WBC 2.9(L) 4.8 - 10.8 K/mcL LAB HEMETOLOGY METHOD 04/14/2024 2:45 PM [facility] RBC 5.00(H) 3.80 - 4.80 M/mcL LAB HEMETOLOGY METHOD 04/14/2024 2:45 PM [facility] Hemoglobin 13.1 11.5 - 16.0 g/dL LAB HEMETOLOGY METHOD 04/14/2024 2:45 PM [facility] Hematocrit 40.1 35.0 - 47.0 % LAB HEMETOLOGY METHOD 04/14/2024 2:45 PM [facility] MCV 81.0 79.0 - 98.0 FL LAB HEMETOLOGY METHOD 04/14/2024 2:45 PM [facility] MCH 26.5(L) 27.0 - 32.0 pcg LAB HEMETOLOGY METHOD 04/14/2024 2:45 PM [facility] MCHC 32.7 32.0 - 37.0 g/dL LAB HEMETOLOGY METHOD 04/14/2024 2:45 PM [facility] RDW 14.6 11.0 - 15.0 % LAB HEMETOLOGY METHOD 04/14/2024 2:45 PM [facility] Platelets 208 130 - 400 K/mcL LAB HEMETOLOGY METHOD 04/14/2024 2:45 PM [facility] MPV 12.4(H) 7.0 - 11.0 FL LAB HEMETOLOGY METHOD 04/14/2024 2:45 PM [facility] NRBC 0.0 <1.0 % LAB HEMETOLOGY METHOD 04/14/2024 2:45 PM [facility] NRBC Absolute 0.00 <0.10 K/mcL LAB HEMETOLOGY METHOD 04/14/2024 2:45 PM [facility] Neutrophils Relative 56.2 % LAB HEMETOLOGY METHOD 04/14/2024 2:45 PM [facility] Lymphocytes Relative 28.6 % LAB HEMETOLOGY METHOD 04/14/2024 2:45 PM [facility] Monocytes Relative 14.6 % LAB HEMETOLOGY METHOD 04/14/2024 2:45 PM [facility] Eosinophils Relative 0.3 % LAB HEMETOLOGY METHOD 04/14/2024 2:45 PM [facility] Basophils Relative 0.3 % LAB HEMETOLOGY METHOD 04/14/2024 2:45 PM [facility] [facility] Immature Granulocytes Relative 0.0 % LAB HEMETOLOGY METHOD 04/14/2024 2:45 PM [facility] Neutrophils Absolute 1.65 1.50 - 7.00 K/mcL LAB HEMETOLOGY METHOD 04/14/2024 2:45 PM [facility] Lymphocytes Absolute 0.84(L) 1.00 - 5.00 K/mcL LAB HEMETOLOGY METHOD 04/14/2024 2:45 PM [facility] Monocytes Absolute 0.43 0.20 - 1.00 K/mcL LAB HEMETOLOGY METHOD 04/14/2024 2:45 PM [facility] Eosinophils Absolute 0.01 0.00 - 0.50 K/mcL LAB HEMETOLOGY METHOD 04/14/2024 2:45 PM [facility] Basophils Absolute 0.01 0.00 - 0.20 K/mcL LAB HEMETOLOGY METHOD 04/14/2024 2:45 PM [facility] Immature Granulocytes Absolute 0.00 0.00 - 0.03 K/mcL LAB HEMETOLOGY METHOD 04/14/2024 2:45 PM [facility] Blood Venous blood specimen / Unknown Venipuncture / Unknown 04/14/2024 1:24 PM EST 04/14/2024 2:06 PM EST Young Rdz MD LAB BLOOD ORDERABLES Final Result Performing Organization Address City/[facility]/ZIP Co de Phone Number [facility] [address] [place] [address], [place] [phone] * Lipase (04/14/2024 1:24 PM EST) Lipase 23 13 - 75 unit/L LAB CHEMISTRY METHOD 04/14/2024 2:52 PM [facility] Blood Venous blood specimen / Unknown Venipuncture / Unknown 04/14/2024 1:24 PM EST 04/14/2024 2:06 PM EST Young Rdz MD LAB BLOOD ORDERABLES Final Result Performing Organization Address [facility]/ZIP Co de Phone Number [facility] [address] [place] [address], [place] [phone] * (ABNORMAL) Comprehensive metabolic panel (04/14/2024 1:24 PM EST) Pathologist [facility] [place] Sodium 138 133 - 145 mmol/L LAB CHEMISTRY METHOD 04/14/2024 2:52 PM [facility] Potassium 3.1(L) 3.5 - 5.5 mmol/L LAB CHEMISTRY METHOD 04/14/2024 2:52 PM [facility] Chloride 103 96 - 110 mmol/L LAB CHEMISTRY METHOD 04/14/2024 2:52 PM [facility] CO2 26 21 - 32 mmol/L LAB CHEMISTRY METHOD 04/14/2024 2:52 PM [facility] Anion Gap 9 3 - 11 LAB CHEMISTRY METHOD 04/14/2024 2:52 PM [facility] Glucose 92 70 - 100 mg/dL LAB CHEMISTRY METHOD 04/14/2024 2:52 PM [facility] BUN 10 5 - 25 mg/dL LAB CHEMISTRY METHOD 04/14/2024 2:52 PM [facility] Creatinine 0.68 0.50 - 1.10 mg/dL LAB CHEMISTRY METHOD 04/14/2024 2:52 PM [facility] eGFR 104 >=60 mL/min/1. 73m2 LAB CHEMISTRY METHOD 04/14/2024 2:52 PM [facility] Comment:Calculation based on the??Chronic Kidney Disease Epidemiology Collaboration (CKD-EPI) equation refit??without adjustment for race. BUN/Creatinine Ratio 14.7 LAB CHEMISTRY METHOD 04/14/2024 2:52 PM [facility] Calcium 8.9 8.5 - 10.5 mg/dL LAB CHEMISTRY METHOD 04/14/2024 2:52 PM [facility] AST (SGOT) 20 10 - 42 unit/L LAB CHEMISTRY METHOD 04/14/2024 2:52 PM [facility] ALT (SGPT) 12 10 - 60 unit/L LAB CHEMISTRY METHOD 04/14/2024 2:52 PM [facility] Alkaline Phosphatase 71 42 - 121 unit/L LAB CHEMISTRY METHOD 04/14/2024 2:52 PM [facility] Total Protein 7.7 6.0 - 8.0 g/dL LAB CHEMISTRY METHOD 04/14/2024 2:52 PM [facility] Albumin 3.8 3.2 - 5.0 g/dL LAB CHEMISTRY METHOD 04/14/2024 2:52 PM [facility] Total Bilirubin 0.7 0.0 - 1.4 mg/dL LAB CHEMISTRY METHOD 04/14/2024 2:52 PM [facility] Blood Venous blood specimen / Unknown Venipuncture / Unknown 04/14/2024 1:24 PM EST 04/14/2024 2:06 PM EST us Young Rdz MD LAB BLOOD ORDERABLES Final Result [facility] [address] [place] [address], * Magnesium (04/14/2024 1:24 PM EST) Magnesium 2.1 1.9 - 2.6 mg/dL LAB CHEMISTRY METHOD 04/14/2024 2:52 PM EST [facility] Blood Venous blood specimen / Unknown Venipuncture / Unknown 04/14/2024 1:24 PM EST 04/14/2024 2:06 PM EST us Young Rdz MD LAB BLOOD ORDERABLES Final Result [facility] [address] [place] [address], [place] [phone] documented in this encounter Visit Diagnoses Diagnosis Influenza A- Primary Influenza with other respiratory manifestations Hypokalemia Hypopotassemia Diverticulitis Diverticulitis of colon (without mention of hemorrhage) documented in this encounter Administered Medications Inactive Administered Medications - up to 3 most recent administrations Medication Order MAR Action Action Date Dose Rate Site ciprofloxacin (CIPRO) tablet 500 mg 500 mg, oral, Once, On Sun04/14/24 at 2040, For 1 dose, Administer 2 hours before or after multivitamins, antacids, or other products containing polyvalent cations (i.e., calcium, iron, magnesium, selenium, zinc). IF RECEIVING ENTERAL NUTRITION: Hold tube feeds 2 hours before and 2 hours after administration., Indication: Intra-abdominal Given 04/14/2024 9:40 PM EST 500 mg iopamidoL (ISOVUE-370) 370 mg iodine /mL (76 %) injection 100 mL 100 mL, intravenous, Once in imaging, Starting on Sun04/14/24 at 1853, For 1 dose Given 04/14/2024 6:56 PM EST 100 mL metroNIDAZOLE (FLAGYL) tablet 500 mg 500 mg, oral, Once, On Sun04/14/24 at 2040, For 1 dose, Indication: Intra-abdominal Given 04/14/2024 9:40 PM EST 500 mg morphine injection 4 mg 4 mg, intravenous, Once, On Sun04/14/24 at 1716, For 1 dose Given 04/14/2024 5:26 PM EST 4 mg ondansetron (PF) (ZOFRAN) injection 4 mg 4 mg, intravenous, Once, On Sun04/14/24 at 1700, For 1 dose Given 04/14/2024 5:16 PM EST 4 mg ondansetron (PF) (ZOFRAN) injection 4 mg 4 mg, intravenous, Once, On Sun04/14/24 at 2048, For 1 dose Given 04/14/2024 8:53 PM EST 4 mg oseltamivir (TAMIFLU) capsule 75 mg 75 mg, oral, 2 times daily, First dose on Sun04/14/24 at 2100, For 5 days, Indication: Influenza Given 04/14/2024 8:28 PM EST 75 mg sodium chloride 0.9 % bolus 1,000 mL 1,000 mL, intravenous, at 1,000 mL/hr, Administer over 1 Hours, Once, On Sun04/14/24 at 1700, For 1 dose New Bag 04/14/2024 5:14 PM EST 1,000 mL 100 0 mL/hr sodium chloride 0.9 % bolus 1,000 mL 1,000 mL, intravenous, at 1,000 mL/hr, Administer over 1 Hours, Once, On Sun04/14/24 at 1932, For 1 dose New Bag 04/14/2024 7:39 PM EST 1,000 mL 100 0 mL/hr sodium chloride 0.9 % flush 10 mL 10 mL, intravenous, Once, On Sun04/14/24 at 1854, For 1 dose Given 04/14/2024 6:55 PM EST 10 mL documented in this encounter Active and Recently Administered Medications Times are shown in EST. Scheduled Medication Order 04/13/2024 04/14/2024 04/15/2024 ciprofloxacin (CIPRO) tablet 500 mg (COMPLETED) 500 mg, oral, Once, On Sun04/14/24 at 2040, For 1 dose, Administer 2 hours before or after multivitamins, antacids, or other products containing polyvalent cations (i.e., calcium, iron, magnesium, selenium, zinc). IF RECEIVING ENTERAL NUTRITION: Hold tube feeds 2 hours before and 2 hours after administration., Indication: Intra-abdominal 2139 (Given - Provider: Nino Chatterjee RN) iopamidoL (ISOVUE-370) 370 mg iodine /mL (76 %) injection 100 mL (COMPLETED) 100 mL, intravenous, Once in imaging, Starting on Sun04/14/24 at 1853, For 1 dose 1855 (Given - Provider: Jeanmarie Ragland) metroNIDAZOLE (FLAGYL) tablet 500 mg (COMPLETED) 500 mg, oral, Once, On Sun04/14/24 at 2040, For 1 dose, Indication: Intra-abdominal 2139 (Given - Provider: Nino Chatterjee RN) morphine injection 4 mg (COMPLETED) 4 mg, intravenous, Once, On Sun04/14/24 at 1716, For 1 dose 1725 (Given - Provider: Linus Matthews RN) ondansetron (PF) (ZOFRAN) injection 4 mg (COMPLETED) 4 mg, intravenous, Once, On Sun04/14/24 at 1700, For 1 dose 1715 (Given - Provider: Linus Matthews RN) ondansetron (PF) (ZOFRAN) injection 4 mg (COMPLETED) 4 mg, intravenous, Once, On Sun04/14/24 at 204, For 1 dose 2052 (Given - Provider: Nino Chatterjee RN) oseltamivir (TAMIFLU) capsule 75 mg 75 mg, oral, 2 times daily, First dose on Sun04/14/24 at 2100, For 5 days, Indication: Influenza 2027 (Given - Provider: Yuan Pham RN) sodium chloride 0.9 % bolus 1,000 mL (COMPLETED) 1,000 mL, intravenous, at 1,000 mL/hr, Administer over 1 Hours, Once, On Sun04/14/24 at 1700, For 1 dose 171 (New Bag - Provider: Mayur Matthews RN)183 (Stopped - Provider: Mayur Matthews RN) sodium chloride 0.9 % bolus 1,000 mL (COMPLETED) 1,000 mL, intravenous, at 1,000 mL/hr, Administer over 1 Hours, Once, On Sun04/14/24 at 1932, For 1 dose 1938 (New Bag - Provider: Sandee Pham RN)2045 (Stopped - Provider: Sundeep Shena, RN) sodium chloride 0.9 % flush 10 mL (COMPLETED) 10 mL, intravenous, Once, On 04/14/24 at 1854, For 1 dose 1855 (Given - Provider: Jeanmarie Ragland) documented in this encounter Orders Nursing Count Last Ordered Date First Orde red Date VITAL SIGNS 1 04/14/2024 documented in this encounter Additional Health Concerns Infection Onset Date Last Indicated Resolved Time Respiratory Rule-Out 04/14/2024 04/14/2024 025 6:42 PM EST COVID-19 Rule-Out 04/14/2024 04/14/2024 04/14/2024 6:42 PM EST Influenza 04/14/2024 04/14/2024 documented as of this encounter Care Teams Personnel Placement Specialist Relationship Specialty Start Date End Date Matthew Licona MD [address] [place] [id number] PCP - General Internal Medicine 02/07/24 documented as of this encounter
--- OUTSIDE RECORDS SUMMARY | 2024-04-17 13:57 | XMS_ITS | Encounter Summary ---
Author Organization [facility] [place] [address] Care Team Providers Care Sales Order Processor Name Role Phone Matthew Licona MD Primary Care Provider [phone] Reason for Visit * Reason Onset Date Comments Appointment 03/20/2024 Encounter Details Date Type Department Care Team (Late st Contact Info) Description 03/20/2024 Telephone Adult Medicine [address] [phone] Matthew Licona MD [address] [place] [id number] Appointment Social History Tobacco Use Types Packs/Day Years [...] as of this encounter Progress Notes * Carol Guevara MA - 04/09/2024 2:38 PM EST Pt has an upcoming appt with PCP on 04/11/2024 & one on 05/16/2024. * Trina Ramírez - 03/20/2024 3:58 PM EST Patient states she had a tele-visit with Dr Licona on 03/14/24 and was told someone from the office would call her about her next in office appointment in 3 months. States she isn't sure if her appointment needs to be 30 minutes or a certain time of day. She is asking that someone check with Dr. Licona and get back with her at [phone] (home) [phone] (work) documented in this encounter Plan of Treatment Upcoming Encounters Date Type Department Care Team (Late st Contact Info) Description 05/16/2024 12:00 PM EDT Office Visit Adult Medicine [facility] [address] [place] [phone] Myles Frausto PA [address] [place] [address] 09/25/2024 10:30 AM EDT Consult Bariatric Surgery - [place] [address] [phone] Yi Fitzpatrick MD [address] [phone] documented as of this encounter Visit Diagnoses Not on filedocumented in this encounter Care Teams Sales Order Processor Relationship Specialty Start Date End Date Matthew Licona MD [address] [place] [phone] PCP - General Internal Medicine 02/07/24 documented as of this encounter
[2024-04-17 14:01] LABS: SLIDE REVIEW VERIFIED
[2024-04-17] MEDS: ondansetron HCL 4 MG/2 ML VIAL IVPUSH ×2 (15:43→22:57)
[2024-04-17] MEDS: Morphine Sulfate 4 MG/ML CARTRIDGE IVPUSH (15:45)
[2024-04-17] MEDS: Potassium Chloride ER 20 MEQ TAB.ER.PRT PO (15:45)
[2024-04-17] MEDS: Potassium Chloride/H20 10 MEQ/100 ML PIGGYBACK 100 MEQ IV ×2 (15:50→17:24)
[2024-04-17] MEDS: Lactated Ringers 1,000 ML 999 ML IV (15:50)
--- NOTE | 2024-04-17 16:05 | P.HPGS_ITS ---
History of Present Illness History of Present Illness Date of Service: 04/17/24 <Elvia Talbot PA-C - Last Filed: 04/17/24 16:15> 04/17/24 <Ridge Hammond MD - Last Filed: 04/17/24 16:44> Chief complaint: Sigmoid Diverticulitis <Elvia Talbot PA-C - Last Filed: 04/17/24 16:15> Narrative: Lali Prieto is a 53 year old female with PMH significant for hypertension who presented to the ED with complaints of LLQ pain. She reports this pain started about a week and a half ago and was left sided but then became more localized to the left lower quadrant and suprapubic region. It is associated with nausea/vomiting, diarrhea and subjective fevers. She was seen at [facility] where they did a CT scan which showed moderate sigmoid diverticulitis and was discharged on oral levaquin and flagyl. She however has been unable to tolerate the antibiotics due to continue nausea and vomiting. She has been unabl e to tolerate any oral intake for the past few days. Her pain has gotten worse and is now severe and therefore presented to the ED. Repeat CT scan is pending. She has never had a colonoscopy before. She has never had any previous episodes of similar pain. <Elvia Talbot PA-C - Last Filed: 04/17/24 16:15> Review of Systems Review of Systems: Yes all other systems are reviewed and are negative <Elvia Talbot PA-C - Last Filed: 04/17/24 16:15> [facility] Family History Family History: Family History Mother Arthritis Heart problem Father Diabetes Colon cancer Family history of prostate cancer Arthritis Son Nerve damage Asthma Daughter Asthma Daughter Asthma <Elvia Talbot PA-C - Last Filed: 04/17/24 16:15> Surgical History Surgical History: Surgical History (Updated 04/17/24 @ 16:08 by Elvia Talbot PA-C) Hx of section History of laparoscopic cholecystectomy Hx of hernia repair <Elvia Talbot PA-C - Last Filed: 04/17/24 16:15> Social History Social History: Social History Alcohol intake: current Alcohol intake frequency: holidays/special occasions only Patient Tobacco Use Status: Never used Tobacco Advance Directives: No Advance Directives Information Provided: Yes <Elvia Talbot PA-C - Last Filed: 04/17/24 16:15> Meds Allergies/Adverse reactions: Allergies Allergy/AdvReac Type Severity Reaction Status Date / Time amoxicillin [From Augmentin] Allergy Hives Verified 04/17/24 13:21 clavulanic acid Allergy Hives Verified 04/17/24 13:21 [From Augmentin] <Elvia Talbot PA-C - Last Filed: 04/17/24 16:15> Active Medications: Current Medications Potassium Chloride (Potassium Chloride/H20) 10 meq in 100 mls @ 100 mls/hr IV Q1H PAT Stop: 04/17/24 17:29 Last Admin: 04/17/24 15:50 Dose: 100 mls/hr Lactated Ringer's (Lr) 1,000 mls @ 999 mls/hr IV .Q1H1M PAT Stop: 04/17/24 16:30 Last Admin: 04/17/24 15:50 Dose: 999 mls/hr Piperacillin Sod/Tazobactam (Sod 3.375 gm/ Sodium Chloride) 50 mls @ 100 mls/hr IV ONCE ONE Stop: 04/17/24 16:19 <Elvia Talbot PA-C - Last Filed: 04/17/24 16:15> Home medications: Home Medications ?Medication ?Instructions ?Recorded ?Confirmed ?Last Taken ?Type celecoxib 100 mg capsule 100 mg PO BID 10/11/22 10/11/22 Unknown History cyanocobalamin (vitamin B-12) 5,000 mcg PO DAILY 10/11/22 10/11/22 Unknown His tory 5,000 mcg sublingual tablet (Vitamin B-12) furosemide 20 mg tablet 20 mg PO DAILY 10/11/22 10/11/22 Unknown History gabapentin 300 mg capsule 300 mg PO TID 10/11/22 10/11/22 Unknown History gabapentin 600 mg tablet 600 mg PO TID 10/11/22 10/11/22 Unknown History hydrochlorothiazide 25 mg tablet 25 mg PO DAILY 10/11/22 10/11/22 Unknown History lisinopril 10 mg tablet 10 mg PO DAILY 10/11/22 10/11/22 Unknown History nystatin 100,000 unit/gram topical 100,000 unit topical BID 10/11/22 10/11/22 Unknown History powder oxycodone-acetaminophen 10 mg-325 1 tab PO QID PRN 10/11/22 10/11/22 Unknown History mg tablet valacyclovir 500 mg tablet 500 mg PO BID 10/11/22 10/11/22 Unknown History atorvastatin 20 mg tablet 20 mg PO BEDTIME 04/17/24 Unknown History ciprofloxacin HCl 500 mg tablet 500 mg PO BID 04/17/24 Unknown History metronidazole 500 mg tablet 500 mg PO BID 04/17/24 Unknown History ondansetron 4 mg disintegrating 4 mg PO Q8H PRN Nausea And Vomiting 04/17/24 Unknown History tablet <RADHA Gallardo Last Filed: 04/17/24 16:15> Physical Exam Vital Signs: Vital Signs: Last Vital Signs Temp 98.0 F 04/17/24 13:18 Pulse 75 04/17/24 13:18 Resp 16 04/17/24 13:18 BP 147/78 H 04/17/24 13:18 Pulse Ox 100 04/17/24 13:18 O2 Del Method Room Air 04/17/24 13:18 BMI result Body Mass Index 46.4 <RADHA Gallardo Last Filed: 04/17/24 16:15> Const: Other: uncomfortable appearing <RADHA Gallardo Last Filed: 04/17/24 16:15> General: no acute distress and alert <RADHA Gallardo Last Filed: 04/17/24 16:15> Orientation/consciousness: patient oriented x3 <RADHA Gallardo Last Filed: 04/17/24 16:15> Neck: Neck: Yes no JVD <RADHA Gallardo Last Filed: 04/17/24 16:15> Resp: Effort & Inspection: normal respiratory effort and not tachypneic <RADHA Gallardo Last Filed: 04/17/24 16:15> GI: Other: corpulent abdomen <RADHA Gallardo Last Filed: 04/17/24 16:15> Inspection: No distended and Yes scar <Elvia Talbot PA-C Gali Last Filed: 04/17/24 16:15> Palpation (GI): Soft to palpation, Tenderness to palpation present (GI) in the LLQ (moderate ), suprapubicly and with rebound tenderness, no guarding and not rigid <RADHA Gallardo Last Filed: 04/17/24 16:15> Percussion: Yes normal to percussion <RADHA Gallardo Last Filed: 04/17/24 16:15> Skin: General skin exam: no rashes or lesions noted <RADHA Gallardo Last Filed: 04/17/24 16:15> Neuro: General: patient oriented x3 and moves all extremities <RADHA Gallardo Last Filed: 04/17/24 16:15> Results Results Labs: Short CBC 04/17/24 Range/Units 13:25 WBC 4.3 L (4.8-10.8) X10*3/uL Hgb 12.3 (12.0-16.0) g/dl Hct 36.8 L (37.0-47.0) % Plt Count 201 (160-400) X10*3/uL BMP 04/17/24 13:25 Sodium 142 Potassium 3.0 L Chloride 107 Carbon Dioxide 23 BUN 9 Creatinine 0.78 Calcium 9.0 Liver Function 04/17/24 Range/Units 13:25 Total Bilirubin 0.7 (0.0-1.0) mg/dL AST 29 (5-31) U/L ALT 11 (0-31) U/L Alkaline Phosphatase 53 (39-117) U/L Albumin 4.2 (3.5-5.0) g/dL <RADHA Gallardo Last Filed: 04/17/24 16:15> Assessment and Plan (1) Sigmoid diverticulitis: Status: Acute <RADHA Gallardo Last Filed: 04/17/24 16:15> 53 year old female PMH significant for hypertension recently diagnosed with sigmoid diverticulitis on 04/14 discharged on oral abx now with worsening of her LLQ pain. She will be admitted to the surgical service for further treatment of the acute diverticulitis that failed outpatient therapy. Repeat scan pending. She is uncomfortable but nontoxic appearing with moderate tenderness. Can have clear liquids for now, IVF, IV abx. Further plan dependent on imaging and clinical course. Patient comfortable with plan. <Elvia Talbot PA-C - Last Filed: 04/17/24 16:15> 53 year old female PMH significant for hypertension recently diagnosed with sigmoid diverticulitis on 04/14 discharged on oral abx now with worsening of her LLQ pain. She will be admitted to the surgical service for further treatment of the acute diverticulitis that failed outpatient therapy. Repeat scan pending. She is uncomfortable but nontoxic appearing with moderate tenderness. Can have clear liquids for now, IVF, IV abx. Further plan dependent on imaging and clinical course. Patient comfortable with plan. Patient seen and examined independently. Agree with the above assessment and plan. Reviewed the CT abdomen and pelvis (radiology report pending at the time of this dictation). Mild diverticulitis is identified but no abscess could be appreciated. Patient with persistent nausea, vomiting, abdominal pain, diarrhea, and unable to tolerate p.o.. We will admit for IV hydration and IV antibiotics. <Ridge Hammond MD - Last Filed: 04/17/24 16:44> Quality Stroke Does the patient have a stroke diagnosis?: No <Elvia Talbot PA-C - Last Filed: 04/17/24 16:15> VTE Prior VTE?: No <Elvia Talbot PA-C - Last Filed: 04/17/24 16:15> VTE Risk Level:: Medical - low <Elvia Talbot PA-C - Last Filed: 04/17/24 16:15> VTE Device Contraindication: N/A - Device Ordered <Elvia Talbot PA-C - Last Filed: 04/17/24 16:15> VTE Drug Contraindication: Treatment Not Indicated <Elvia Talbot PA-C - Last Filed: 04/17/24 16:15> Procedures Date of Service Date of Service: 04/17/24 <Elvia Talbot PA-C - Last Filed: 04/17/24 16:15> 04/17/24 <Ridge Hammond MD - Last Filed: 04/17/24 16:44>
[2024-04-17] MEDS: iohexoL 350 MG/ML 100 ML INFUS..BTL IV (16:25)
[2024-04-17] MEDS: Piperacillin Sodium/Tazobactam 3.375 GM in 0.9 % Sodium Chloride 50 ML IV ×2 (17:07→23:05)
[2024-04-17] MEDS: Lactated Ringers 1,000 ML 100 ML IVCONT (17:25)
--- NOTE | 2024-04-17 17:55 | PHA.MEDREC ---
Addendum entered by Robyn Faye RPh 04/17/24 19:02: Med rec reviewed by [facility]. Per provider, removed celebrex from home list as patient hasn't had it filled in over a year. Changed gabapentin to 900 mg tid as PDMP and claim history is not able to support the QID dosing, also with provider approval. Original Note: Pharmacy Consult ? Medication Reconciliation Pharmacy has completed the medication reconciliation. Spoke with patient and she confirmed her medications. She confirmed she is still using the Celecoxib 100mg tabs twice daily; I called [facility] to confirm the last time she got that and confirmed she last picked that up April 12/2024 for 30 days. Patient also confirmed she takes her Gabapentin 300mg tab 3 tabs four times a day instead of three times and when I asked about it she states she always has been doing it like that as far as she knows. Patient confirmed they're taking Taking Valcyclovir 500mg tabs as needed for outbreaks; [facility] confirmed [facility] 3 days supply on [facility]/03/23. She states she stopped taking the Ciprofloxacin and Metronidazole the day after she started them due to not being able to keep them down she she was taking them. She confirmed she has not been able to take any of her medications in about a week.
[2024-04-17 22:22] VITALS: BP 141/78; PULSE 84; RESP 18; TEMP 36.6; O2SAT 100
[2024-04-17 22:34] VITALS: BMI 46.4
[2024-04-17] MEDS: 0.9 % Sodium Chloride Flush 3 ML SYRINGE IVFLUSH (22:56)
[2024-04-17 23:01] LABS: Appearance Urine Clear; Color Urine Yellow; Glucose Urine UA Negative (Negative); Leukocyte Esterase Urine Negative (Negative); Nitrite Urine Negative (Negative); Specific Gravity - Urine >= 1.030 (1.005-1.025); Urine Blood Negative (Negative); Urine Ketones 40 mg/dL (Negative); Urine Protein Trace mg/dL (Neg-Trace)
[2024-04-17] MEDS: HYDROmorphone HCl 1 MG/ML SYRINGE 0.5 MG IVPUSH (23:37)
[2024-04-18] VITALS (7 sets, daily range): BP systolic 111–159; BP diastolic 62–77; PULSE 55–66; RESP 16–20; TEMP 36–36.3; O2SAT 94–97
[2024-04-18] MEDS: Prochlorperazine Edisylate 10 MG/2 ML VIAL IVPUSH ×2 (00:11→16:59)
[2024-04-18] MEDS: HYDROmorphone HCl 1 MG/ML SYRINGE 0.5 MG IVPUSH ×3 (05:08→18:03)
[2024-04-18] MEDS: Piperacillin Sodium/Tazobactam 3.375 GM in 0.9 % Sodium Chloride 50 ML IV ×4 (05:15→21:37)
[2024-04-18] MEDS: Lactated Ringers 1,000 ML 100 ML IVCONT ×2 (05:53→17:58)
--- NOTE | 2024-04-18 07:49 | PM.PNGS ---
Subjective Subjective Date of Service: 04/18/24 <Elvia Talbot PA-C - Last Filed: 04/18/24 07:52> 04/18/24 <Ridge Hammond MD - Last Filed: 04/18/24 08:31> Interval history: Has persistent LLQ pain. Reports it may be a little improved since admission. Continues with nausea. Tolerating small amount of liquids. <Elvia Talbot PA-C - Last Filed: 04/18/24 07:52> Physical Exam Vital Signs: Vital Signs: Last Vital Signs Temp 96.8 F 04/18/24 07:41 Pulse 61 04/18/24 07:41 Resp 16 04/18/24 07:41 BP 159/77 H 04/18/24 07:41 Pulse Ox 94 04/18/24 07:41 O2 Del Method Room Air 04/18/24 07:41 BMI result Body Mass Index 46.4 <Elvia Talbot PA-C - Last Filed: 04/18/24 07:52> Const: General: comfortable, no acute distress and alert <Elvia Talbot PA-C - Last Filed: 04/18/24 07:52> Orientation/consciousness: patient oriented x3 <Elvia Talbot PA-C - Last Filed: 04/18/24 07:52> Resp: Effort & Inspection: normal respiratory effort <Elvia Talbot PA-C - Last Filed: 04/18/24 07:52> GI: Inspection: No distended <Elvia Talbot PA-C - Last Filed: 04/18/24 07:52> Palpation (GI): Soft to palpation, Tenderness to palpation present (GI) (moderate LLQ/suprapubic tenderness persists) and no guarding <Elvia Talbot PA-C - Last Filed: 04/18/24 07:52> Skin: General skin exam: no rashes or lesions noted <RADHA Gallardo Last Filed: 04/18/24 07:52> Neuro: General: patient oriented x3 <RADHA Gallardo Last Filed: 04/18/24 07:52> Objective Data Active Medications Acetaminophen (Acetaminophen 325 Mg Tablet) 650 mg PO Q6H PRN PRN Reason: Pain, Mild 1-3,fever,headache Calcium Carbonate (Calcium Carbonate 750 Mg Tab.Chew) 750 mg PO Q4H PRN PRN Reason: Heartburn Hydromorphone HCl (Hydromorphone Hcl 1 Mg/Ml Syringe) 0.5 mg IVPUSH Q4H PRN; Protocol PRN Reason: Pain, Severe (Pain Scale 7-10) Last Admin: 04/18/24 05:08 Dose: 0.5 mg Documented By: FRANCESCO Lactated Ringer's (Lr) 1,000 mls @ 100 mls/hr IVCONT .Q10H [facility] Last Admin: 04/18/24 05:53 Dose: 100 mls/hr Documented By: FRANCESCO Piperacillin Sod/Tazobactam (Sod 3.375 gm/ Sodium Chloride) 50 mls @ 100 mls/hr IV Q6H [facility] Last Infusion: 04/18/24 05:47 Dose: Infused Documented By: FRANCESCO Magnesium Hydroxide (Milk Of Magnesia 30 Ml Oral.Susp) 30 ml PO DAILY PRN PRN Reason: Constipation Melatonin (Melatonin 3 Mg Tablet) 6 mg PO BEDTIME PRN PRN Reason: Insomnia Ondansetron HCl (Ondansetron Hcl 4 Mg/2 Ml Vial) 4 mg IVPUSH Q8H PRN PRN Reason: Nausea and Vomiting Last Admin: 04/17/24 22:57 Dose: 4 mg Documented By: FRANCESCO Oxycodone HCl (Oxycodone Hcl Immed Release 5 Mg Tablet) 5 mg PO Q4H PRN PRN Reason: Pain, Moderate(Pain Scale 4-6) Prochlorperazine Edisylate (Prochlorperazine Edisylate 10 Mg/2 Ml Vial) 10 mg IVPUSH Q6H PRN PRN Reason: Nausea and Vomiting Last Admin: 04/18/24 00:11 Dose: 10 mg Documented By: FRANCESCO Sodium Chloride (0.9 % Sodium Chloride Flush 3 Ml Syringe) 3 ml IVFLUSH QSHIFT [facility] Last Admin: 04/17/24 22:56 Dose: 3 ml Documented By: FRANCESCO <Elvia Talbot PA-C - Last Filed: 04/18/24 07:52> Labs CBC & Chem 7: 04/17/24 13:25 04/17/24 13:25 <Elvia Talbot PA-C - Last Filed: 04/18/24 07:52> Labs: Laboratory Results - last 24 hr 04/17/24 04/17/24 13:25 22:22 MCV 78.5 L MCH 26.2 L MCHC 33.4 RDW 14.5 Plt Count 201 MPV 11.4 Immature Gran % (Auto) 0.2 Neut % (Auto) 49.0 Lymph % (Auto) 41.2 H [place] % (Auto) 9.2 Eos % (Auto) 0.2 Baso % (Auto) 0.2 Lymph # (Auto) 1.8 [place] # (Auto) 0.4 Eos # (Auto) 0.0 Baso # (Auto) 0.0 Abs Immat Gran (auto) 0.01 Absolute Neuts (auto) 2.1 Absolute Nucleated RBC 0.000 Nucleated RBC % (auto) 0.0 Smear Tech's Comments VERIFIED Anion Gap 15 Estim Creat Clear Calc 88.0 Estimated GFR > 60 Random Glucose 92 Calcium 9.0 Magnesium 2.1 Total Bilirubin 0.7 AST 29 ALT 11 Alkaline Phosphatase 53 Total Protein 7.8 Albumin 4.2 Lipase 23 Urine Color Yellow Urine Appearance Clear Urine pH 6.0 Ur Specific [place] >= 1.030 H Urine Protein Trace Urine Glucose (UA) Negative Urine Ketones 40 Urine Blood Negative Urine Nitrite Negative Ur Leukocyte Esterase Negative <Elvia Talbot PA-C - Last Filed: 04/18/24 07:52> Procedures Date of Service Date of Service: 04/18/24 <Elvia Talbot PA-C - Last Filed: 04/18/24 07:52> 04/18/24 <Ridge Hammond MD - Last Filed: 04/18/24 08:31> Progress Note: A&P Assessment and plan (1) Sigmoid diverticulitis: Status: Acute <Elvia Talbot PA-C - Last Filed: 04/18/24 07:52> Assessment and Plan: CT shows severe diverticulosis of left/sigmoid colon without significant surrounding inflammatory changes however she continues to report severe LLQ pain and remains fairly tender in LLQ/suprapubicly. Will continue current plan for now. UA negative. ?Stool studies. <Elvia Talbot PA-C - Last Filed: 04/18/24 07:52> CT shows severe diverticulosis of left/sigmoid colon without significant surrounding inflammatory changes however she continues to report severe LLQ pain and remains fairly tender in LLQ/suprapubicly. Will continue current plan for now. UA negative. ?Stool studies. Patient seen and examined independently. As noted above she continues to complain of lower abdominal pain throughout the night requiring 2 doses of IV pain medications. CT final report confirms severe diverticulosis without evidence of diverticulitis, abscess or perforation. Bilateral hip findings noted. She reports continued nausea and vomiting throughout the night. She was unable to tolerate clear liquids. We will continue with IV antibiotics and close monitoring of clinical examination. Encouraged out of bed and ambulation. <Ridge Hammond MD - Last Filed: 04/18/24 08:31> Time Spent With Patient Time: Total time managing care of this patient today ____ minutes. <Elvia Talbot PA-C - Last Filed: 04/18/24 07:52> Quality Stroke Does the patient have a stroke diagnosis?: No <Elvia Talbot PA-C - Last Filed: 04/18/24 07:52> VTE Prior VTE?: No <Elvia Talbot PA-C - Last Filed: 04/18/24 07:52> VTE Risk Level:: Medical - low <Elvia Talbot PA-C - Last Filed: 04/18/24 07:52> VTE Device Contraindication: N/A - Device Ordered <Elvia Talbot PA-C - Last Filed: 04/18/24 07:52> VTE Drug Contraindication: Treatment Not Indicated <Elvia Talbot PA-C - Last Filed: 04/18/24 07:52>
[2024-04-18] MEDS: ondansetron HCL 4 MG/2 ML VIAL IVPUSH ×2 (09:06→21:29)
[2024-04-18] MEDS: lisinopriL 10 MG TABLET PO (09:13)
[2024-04-18] MEDS: hydroCHLOROthiazide 25 MG TABLET PO (09:13)
[2024-04-18] MEDS: Gabapentin 300 MG CAPSULE 900 MG PO ×3 (09:13→21:28)
[2024-04-18] MEDS: oxyCODONE HCl Immed Release 5 MG TABLET PO ×2 (09:14→16:02)
--- NOTE | 2024-04-18 15:45 | MHC.CM.PN ---
Patient lives in a home w/ her adult children. Daughter is INVESTMENT BANKING MANAGER, 37.5 hrs/wk. Also has a private pay INVESTMENT BANKING MANAGER that she uses PRN. Ambulates w/ walker. PCP Matthew Licona MD No HCP. She accepted a blank copy and will discuss w/ her daughters. DP: Goal is home w/ services. Patient feels she would benefit from SN and prefers [facility]. Surgical team aware. Daughter will transport. CM will continue to follow.
[2024-04-18] MEDS: 0.9 % Sodium Chloride Flush 3 ML SYRINGE IVFLUSH (16:03)
[2024-04-18] MEDS: Atorvastatin Calcium 20 MG TABLET PO (21:28)
[2024-04-19 03:26] VITALS: BP 136/73; PULSE 58; RESP 18; TEMP 36.9; O2SAT 96
[2024-04-19] MEDS: Piperacillin Sodium/Tazobactam 3.375 GM in 0.9 % Sodium Chloride 50 ML IV ×4 (05:52→21:48)
[2024-04-19] MEDS: Lactated Ringers 1,000 ML 100 ML IVCONT (06:51)
[2024-04-19 07:00] VITALS: BP 127/71; PULSE 69; RESP 16; TEMP 36.6; O2SAT 98
[2024-04-19] MEDS: Gabapentin 300 MG CAPSULE 900 MG PO ×3 (08:46→21:39)
[2024-04-19] MEDS: lisinopriL 10 MG TABLET PO (08:46)
[2024-04-19] MEDS: hydroCHLOROthiazide 25 MG TABLET PO (08:46)
[2024-04-19] MEDS: ondansetron HCL 4 MG/2 ML VIAL IVPUSH ×2 (09:25→17:44)
[2024-04-19] MEDS: HYDROmorphone HCl 1 MG/ML SYRINGE 0.5 MG IVPUSH ×2 (09:28→21:35)
[2024-04-19 11:20] LABS: Adenovirus F 40/41 Not Detected (Not Detect.); Astrovirus Not Detected (Not Detect.); Campylobacter Not Detected (Not Detect.); Cryptosporidium Not Detected (Not Detect.); Cyclospora cayetanensis Not Detected (Not Detect.); E. coli EAEC Not Detected (Not Detect.); E. coli EPEC Not Detected (Not Detect.); E. coli ETEC Not Detected (Not Detect.); E. coli STEC Not Detected (Not Detect.); Entamoeba histolytica Not Detected (Not Detect.); Giardia lamblia Not Detected (Not Detect.); Norovirus GI/GII Not Detected (Not Detect.); Plesiomonas shigelloides Not Detected (Not Detect.); Rotavirus A Not Detected (Not Detect.); Salmonella Not Detected (Not Detect.); Sapovirus Not Detected (Not Detect.); Shigella sp./EIEC Not Detected (Not Detect.); Vibrio Not Detected (Not Detect.); Vibrio Cholerae Not Detected (Not Detect.); Yersinia enterocolitica Not Detected (Not Detect.)
--- NOTE | 2024-04-19 15:00 | P.PNGS_ITS ---
Subjective Subjective Date of Service: 04/19/24 Interval history: Patient was status were abdominal symptoms are mildly improved. She is currently on liquid diet. She did not feel comfortable having solids last night. She is passing some loose stool x1 last evening Physical Exam 2 Vital Signs: Vital Signs: Last Vital Signs Temp 98 F 04/19/24 07:00 Pulse 69 04/19/24 07:00 Resp 16 04/19/24 07:00 BP 127/71 04/19/24 07:00 Pulse Ox 98 04/19/24 07:00 O2 Del Method Room Air 04/19/24 07:00 BMI result Body Mass Index 46.4 GI: Other: Very corpulent abdomen. Mild periumbilical tenderness but no evidence of any guarding, rebound, or rigidity. Objective Data Active Medications Acetaminophen (Acetaminophen 325 Mg Tablet) 650 mg PO Q6H PRN PRN Reason: Pain, Mild 1-3,fever,headache Albuterol Sulfate (Albuterol Sulfate 90 Mcg 8 Gm Inhaler) 2 puff INHALE RQ4H PRN PRN Reason: wheezing Atorvastatin Calcium (Atorvastatin Calcium 20 Mg Tablet) 20 mg PO BEDTIME [facility] Last Admin: 04/18/24 21:28 Dose: 20 mg Documented By: FRANCESCO Calcium Carbonate (Calcium Carbonate 750 Mg Tab.Chew) 750 mg PO Q4H PRN PRN Reason: Heartburn Gabapentin (Gabapentin 300 Mg Capsule) 900 mg PO TID [facility] Last Admin: 04/19/24 08:46 Dose: 900 mg Documented By: ALONDRA Hydrochlorothiazide (Hydrochlorothiazide 25 Mg Tablet) 25 mg PO DAILY [facility]; Protocol Last Admin: 04/19/24 08:46 Dose: 25 mg Documented By: ALONDRA Hydromorphone HCl (Hydromorphone Hcl 1 Mg/Ml Syringe) 0.5 mg IVPUSH Q4H PRN; Protocol PRN Reason: Pain, Severe (Pain Scale 7-10) Last Admin: 04/19/24 09:28 Dose: 0.5 mg Documented By: ALONDRA Lactated Ringer's (Lr) 1,000 mls @ 100 mls/hr IVCONT .Q10H [facility] Last Admin: 04/19/24 06:51 Dose: 100 mls/hr Documented By: FRANCESCO Piperacillin Sod/Tazobactam (Sod 3.375 gm/ Sodium Chloride) 50 mls @ 100 mls/hr IV Q6H [facility] Last Infusion: 04/19/24 09:31 Dose: Infused Documented By: ALONDRA Lisinopril (Lisinopril 10 Mg Tablet) 10 mg PO DAILY [facility]; Protocol Last Admin: 04/19/24 08:46 Dose: 10 mg Documented By: ALONDRA Magnesium Hydroxide (Milk Of Magnesia 30 Ml Oral.Susp) 30 ml PO DAILY PRN PRN Reason: Constipation Melatonin (Melatonin 3 Mg Tablet) 6 mg PO BEDTIME PRN PRN Reason: Insomnia Nitroglycerin (Nitroglycerin 0.4 Mg Tab.Subl) 0.4 mg SUBLINGUAL Q5M PRN PRN Reason: Chest Pain Ondansetron HCl (Ondansetron Hcl 4 Mg/2 Ml Vial) 4 mg IVPUSH Q8H PRN PRN Reason: Nausea and Vomiting Last Admin: 04/19/24 09:25 Dose: 4 mg Documented By: ALONDRA Oxycodone HCl (Oxycodone Hcl Immed Release 5 Mg Tablet) 5 mg PO Q4H PRN PRN Reason: Pain, Moderate(Pain Scale 4-6) Last Admin: 04/18/24 16:02 Dose: 5 mg Documented By: MI Prochlorperazine Edisylate (Prochlorperazine Edisylate 10 Mg/2 Ml Vial) 10 mg IVPUSH Q6H PRN PRN Reason: Nausea and Vomiting Last Admin: 04/18/24 16:59 Dose: 10 mg Documented By: MI Sodium Chloride (0.9 % Sodium Chloride Flush 3 Ml Syringe) 3 ml IVFLUSH QSSCFT [facility] Last Admin: 04/19/24 08:48 Dose: Not Given Documented By: ALONDRA Non-Admin Reason: IV Running Labs 04/17/24 13:25 04/17/24 13:25 Labs: Laboratory Results - last 24 hr 04/19/24 06:33 Stl C. cayetanensis PCR Not Detected Stool Rotavirus A PCR Not Detected Stl Adenov F 40/41 PCR Not Detected Stool Astrovirus (PCR) Not Detected Stool Campylobacter PCR Not Detected Stool Cryptosporidium PCR Not Detected Stl Sh Tox Pr E STEC PCR Not Detected Stool E coli O157 PCR Not applicable Stl Enterotoxigenic E PCR Not Detected Stool EPEC (PCR) Not Detected Stool EAEC (PCR) Not Detected Stl E. histolytica PCR Not Detected Stool Giardia Lamblia PCR Not Detected Stl P. shigelloides PCR Not Detected Stool Salmonella PCR Not Detected Stool Sapovirus (PCR) Not Detected Stl Shigella/EIEC PCR Not Detected St Y.enterocolitica PCR Not Detected Stool Vibrio (PCR) Not Detected Stl Vibrio cholerae PCR Not Detected Stl Norovirus GI/GII PCR Not Detected Procedures Date of Service Date of Service: 04/19/24 Progress Note: A&P Assessment and plan (1) Abdominal pain: Status: Acute Plan Current plan is to advance diet as patient tolerates. She is encouraged to get out of bed, ambulate. All questions answered. Time Spent With Patient Time: Total time managing care of this patient today ____ minutes. Quality Stroke Does the patient have a stroke diagnosis?: No VTE Prior VTE?: No VTE Risk Level:: Medical - low VTE Device Contraindication: N/A - Device Ordered VTE Drug Contraindication: Treatment Not Indicated
[2024-04-19] MEDS: 0.9 % Sodium Chloride Flush 3 ML SYRINGE IVFLUSH (16:36)
[2024-04-19 19:36] VITALS: BP 138/68; PULSE 82; RESP 17; TEMP 36.7; O2SAT 97
[2024-04-19] MEDS: guaiFENesin 200 MG/10 ML 10 ML LIQUID PO (21:39)
[2024-04-19] MEDS: Atorvastatin Calcium 20 MG TABLET PO (21:39)
[2024-04-19] MEDS: Prochlorperazine Edisylate 10 MG/2 ML VIAL IVPUSH (23:05)
[2024-04-20] MEDS: Lactated Ringers 1,000 ML 100 ML IVCONT (03:06)
[2024-04-20 03:22] VITALS: BP 118/57; PULSE 68; RESP 20; TEMP 36.1; O2SAT 95
[2024-04-20] MEDS: Piperacillin Sodium/Tazobactam 3.375 GM in 0.9 % Sodium Chloride 50 ML IV ×4 (04:35→22:09)
[2024-04-20 07:04] VITALS: BP 136/77; PULSE 68; RESP 17; TEMP 36.5; O2SAT 96
[2024-04-20] MEDS: hydroCHLOROthiazide 25 MG TABLET PO (09:29)
[2024-04-20] MEDS: Gabapentin 300 MG CAPSULE 900 MG PO ×3 (09:29→22:08)
[2024-04-20] MEDS: lisinopriL 10 MG TABLET PO (09:30)
[2024-04-20] MEDS: HYDROmorphone HCl 1 MG/ML SYRINGE 0.5 MG IVPUSH ×2 (09:42→22:08)
--- NOTE | 2024-04-20 13:55 | P.PNGS_ITS ---
Subjective Subjective Date of Service: 04/20/24 Interval history: Patient had uneventful evening. Still complaining of lower abdominal/left lower quadrant pain. Tolerating clear liquids. Stool yesterday. Physical Exam 2 Vital Signs: Vital Signs: Last Vital Signs Temp 97.7 F 04/20/24 07:04 Pulse 68 04/20/24 07:04 Resp 17 04/20/24 07:04 BP 136/77 04/20/24 07:04 Pulse Ox 96 04/20/24 07:04 O2 Del Method Room Air 04/20/24 07:04 BMI result Body Mass Index 46.4 GI: Other: Very corpulent abdomen. Mild left lower quadrant/suprapubic tenderness but no evidence of any guarding, rebound, rigidity. Objective Data Active Medications Acetaminophen (Acetaminophen 325 Mg Tablet) 650 mg PO Q6H PRN PRN Reason: Pain, Mild 1-3,fever,headache Albuterol Sulfate (Albuterol Sulfate 90 Mcg 8 Gm Inhaler) 2 puff INHALE RQ4H PRN PRN Reason: wheezing Atorvastatin Calcium (Atorvastatin Calcium 20 Mg Tablet) 20 mg PO BEDTIME [facility] Last Admin: 04/19/24 21:39 Dose: 20 mg Documented By: FRANCESCO Calcium Carbonate (Calcium Carbonate 750 Mg Tab.Chew) 750 mg PO Q4H PRN PRN Reason: Heartburn Gabapentin (Gabapentin 300 Mg Capsule) 900 mg PO TID [facility] Last Admin: 04/20/24 09:29 Dose: 900 mg Documented By: RAMÓN Guaifenesin (Guaifenesin 200 Mg/10 Ml 10 Ml Liquid) 10 ml PO Q4H PRN PRN Reason: Cough Last Admin: 04/19/24 21:39 Dose: 10 ml Documented By: FRANCESCO Hydrochlorothiazide (Hydrochlorothiazide 25 Mg Tablet) 25 mg PO DAILY [facility]; Protocol Last Admin: 04/20/24 09:29 Dose: 25 mg Documented By: RAMÓN Hydromorphone HCl (Hydromorphone Hcl 1 Mg/Ml Syringe) 0.5 mg IVPUSH Q4H PRN; Protocol PRN Reason: Pain, Severe (Pain Scale 7-10) Last Admin: 04/20/24 09:42 Dose: 0.5 mg Documented By: RAMÓN Piperacillin Sod/Tazobactam (Sod 3.375 gm/ Sodium Chloride) 50 mls @ 100 mls/hr IV Q6H [facility] Last Infusion: 04/20/24 11:01 Dose: Infused Documented By: RAMÓN Lactated Ringer's (Lr) 1,000 mls @ 100 mls/hr IVCONT .Q10H [facility] Last Infusion: 04/20/24 10:25 Dose: 0 mls/hr Documented By: RAMÓN Lisinopril (Lisinopril 10 Mg Tablet) 10 mg PO DAILY [facility]; Protocol Last Admin: 04/20/24 09:30 Dose: 10 mg Documented By: RAMÓN Magnesium Hydroxide (Milk Of Magnesia 30 Ml Oral.Susp) 30 ml PO DAILY PRN PRN Reason: Constipation Melatonin (Melatonin 3 Mg Tablet) 6 mg PO BEDTIME PRN PRN Reason: Insomnia Nitroglycerin (Nitroglycerin 0.4 Mg Tab.Subl) 0.4 mg SUBLINGUAL Q5M PRN PRN Reason: Chest Pain Ondansetron HCl (Ondansetron Hcl 4 Mg/2 Ml Vial) 4 mg IVPUSH Q8H PRN PRN Reason: Nausea and Vomiting Last Admin: 04/19/24 17:44 Dose: 4 mg Documented By: ALONDRA Oxycodone HCl (Oxycodone Hcl Immed Release 5 Mg Tablet) 5 mg PO Q4H PRN PRN Reason: Pain, Moderate(Pain Scale 4-6) Last Admin: 04/18/24 16:02 Dose: 5 mg Documented By: MI Prochlorperazine Edisylate (Prochlorperazine Edisylate 10 Mg/2 Ml Vial) 10 mg IVPUSH Q6H PRN PRN Reason: Nausea and Vomiting Last Admin: 04/19/24 23:05 Dose: 10 mg Documented By: FRANCESCO Sodium Chloride (0.9 % Sodium Chloride Flush 3 Ml Syringe) 3 ml IVFLUSH QSHIFT [facility] Last Admin: 04/20/24 09:22 Dose: Not Given Documented By: RAMÓN Non-Admin Reason: IV Running Labs 04/17/24 13:25 04/17/24 13:25 Procedures Date of Service Date of Service: 04/20/24 Progress Note: A&P Assessment and plan (1) Sigmoid diverticulitis: Status: Acute (2) Abdominal pain: Status: Acute Plan Symptoms may be from diverticulitis. Continue current plan; IV antibiotics, p.o. liquids as tolerated, encourage out of bed Time Spent With Patient Time: Total time managing care of this patient today ____ minutes. Quality Stroke Does the patient have a stroke diagnosis?: No VTE Prior VTE?: No VTE Risk Level:: Medical - low VTE Device Contraindication: N/A - Device Ordered VTE Drug Contraindication: Treatment Not Indicated
[2024-04-20 15:36] VITALS: BP 134/79; PULSE 72; RESP 17; TEMP 36.7; O2SAT 95
[2024-04-20] MEDS: 0.9 % Sodium Chloride Flush 3 ML SYRINGE IVFLUSH ×2 (16:24→23:20)
[2024-04-20] MEDS: Prochlorperazine Edisylate 10 MG/2 ML VIAL IVPUSH (16:24)
[2024-04-20 19:07] VITALS: BP 184/87; PULSE 86; RESP 17; TEMP 36.5; O2SAT 94
[2024-04-20] MEDS: Atorvastatin Calcium 20 MG TABLET PO (22:08)
[2024-04-21 01:42] VITALS: BP 128/62; PULSE 73
[2024-04-21] MEDS: Lactated Ringers 1,000 ML 100 ML IVCONT ×2 (02:15→12:53)
[2024-04-21 03:07] VITALS: BP 122/59; PULSE 73; RESP 20; TEMP 36.8; O2SAT 94
[2024-04-21] MEDS: ondansetron HCL 4 MG/2 ML VIAL IVPUSH ×2 (03:20→17:50)
[2024-04-21] MEDS: HYDROmorphone HCl 1 MG/ML SYRINGE 0.5 MG IVPUSH ×4 (03:20→22:03)
[2024-04-21] MEDS: Piperacillin Sodium/Tazobactam 3.375 GM in 0.9 % Sodium Chloride 50 ML IV ×4 (03:20→21:57)
[2024-04-21 06:56] VITALS: BP 140/76; PULSE 71; RESP 16; TEMP 36.6; O2SAT 94
[2024-04-21] MEDS: Prochlorperazine Edisylate 10 MG/2 ML VIAL IVPUSH (07:40)
[2024-04-21] MEDS: Gabapentin 300 MG CAPSULE 900 MG PO ×3 (07:40→21:57)
[2024-04-21] MEDS: hydroCHLOROthiazide 25 MG TABLET PO (07:40)
[2024-04-21] MEDS: lisinopriL 10 MG TABLET PO (07:40)
[2024-04-21] MEDS: 0.9 % Sodium Chloride Flush 3 ML SYRINGE IVFLUSH ×2 (07:42→16:02)
--- NOTE | 2024-04-21 09:25 | PM.PNGS ---
Subjective Subjective Date of Service: 04/21/24 Interval history: says she still has lower abdl pain says she continues to have flu-like symptoms passing flatus Physical Exam Vital Signs: Vital Signs: Last Vital Signs Temp 98 F 04/21/24 06:56 Pulse 71 04/21/24 06:56 Resp 16 04/21/24 06:56 BP 140/76 H 04/21/24 06:56 Pulse Ox 94 04/21/24 06:56 O2 Del Method Room Air 04/21/24 06:56 BMI result Body Mass Index 46.4 Const: Other: very anxious General: no acute distress Resp: Effort & Inspection: normal respiratory effort Cardio: Rate: regular rate GI: Other: c/o diffuse tenderness Palpation (GI): Soft to palpation, not firm, Tenderness to palpation present (GI) and no guarding Objective Data Active Medications Acetaminophen (Acetaminophen 325 Mg Tablet) 650 mg PO Q6H PRN PRN Reason: Pain, Mild 1-3,fever,headache Albuterol Sulfate (Albuterol Sulfate 90 Mcg 8 Gm Inhaler) 2 puff INHALE RQ4H PRN PRN Reason: wheezing Atorvastatin Calcium (Atorvastatin Calcium 20 Mg Tablet) 20 mg PO BEDTIME [facility] Last Admin: 04/20/24 22:08 Dose: 20 mg Documented By: ALLAN Calcium Carbonate (Calcium Carbonate 750 Mg Tab.Chew) 750 mg PO Q4H PRN PRN Reason: Heartburn Gabapentin (Gabapentin 300 Mg Capsule) 900 mg PO TID [facility] Last Admin: 04/21/24 07:40 Dose: 900 mg Documented By: JONNY Guaifenesin (Guaifenesin 200 Mg/10 Ml 10 Ml Liquid) 10 ml PO Q4H PRN PRN Reason: Cough Last Admin: 04/19/24 21:39 Dose: 10 ml Documented By: FRANCESCO Hydrochlorothiazide (Hydrochlorothiazide 25 Mg Tablet) 25 mg PO DAILY [facility]; Protocol Last Admin: 04/21/24 07:40 Dose: 25 mg Documented By: JONNY Hydromorphone HCl (Hydromorphone Hcl 1 Mg/Ml Syringe) 0.5 mg IVPUSH Q4H PRN; Protocol PRN Reason: Pain, Severe (Pain Scale 7-10) Last Admin: 04/21/24 07:40 Dose: 0.5 mg Documented By: JONNY Piperacillin Sod/Tazobactam (Sod 3.375 gm/ Sodium Chloride) 50 mls @ 100 mls/hr IV Q6H [facility] Last Infusion: 04/21/24 05:09 Dose: Infused Documented By: ALLAN Lactated Ringer's (Lr) 1,000 mls @ 100 mls/hr IVCONT .Q10H [facility] Last Admin: 04/21/24 02:15 Dose: 100 mls/hr Documented By: ALLAN Lisinopril (Lisinopril 10 Mg Tablet) 10 mg PO DAILY [facility]; Protocol Last Admin: 04/21/24 07:40 Dose: 10 mg Documented By: JONNY Magnesium Hydroxide (Milk Of Magnesia 30 Ml Oral.Susp) 30 ml PO DAILY PRN PRN Reason: Constipation Melatonin (Melatonin 3 Mg Tablet) 6 mg PO BEDTIME PRN PRN Reason: Insomnia Nitroglycerin (Nitroglycerin 0.4 Mg Tab.Subl) 0.4 mg SUBLINGUAL Q5M PRN PRN Reason: Chest Pain Ondansetron HCl (Ondansetron Hcl 4 Mg/2 Ml Vial) 4 mg IVPUSH Q8H PRN PRN Reason: Nausea and Vomiting Last Admin: 04/21/24 03:20 Dose: 4 mg Documented By: ALLAN Oxycodone HCl (Oxycodone Hcl Immed Release 5 Mg Tablet) 5 mg PO Q4H PRN PRN Reason: Pain, Moderate(Pain Scale 4-6) Last Admin: 04/18/24 16:02 Dose: 5 mg Documented By: MI Prochlorperazine Edisylate (Prochlorperazine Edisylate 10 Mg/2 Ml Vial) 10 mg IVPUSH Q6H PRN PRN Reason: Nausea and Vomiting Last Admin: 04/21/24 07:40 Dose: 10 mg Documented By: JONNY Sodium Chloride (0.9 % Sodium Chloride Flush 3 Ml Syringe) 3 ml IVFLUSH QSHIFT [facility] Last Admin: 04/21/24 07:42 Dose: 3 ml Documented By: JONNY Labs 04/17/24 13:25 04/17/24 13:25 Procedures Date of Service Date of Service: 04/21/24 Progress Note: A&P Assessment and plan (1) Sigmoid diverticulitis: Status: Acute Assessment and Plan: no fever no vomitting i have reviewed CT images - findings seem underwhelming very anxious and complaining a lot of pain and tenderness repeat labs in AM exam otherwise benign continue IV abx encouraged ambulation also with flu Time Spent With Patient Time: Total time managing care of this patient today ____ minutes. Quality Stroke Does the patient have a stroke diagnosis?: No VTE Prior VTE?: No VTE Risk Level:: Medical - low VTE Device Contraindication: N/A - Device Ordered VTE Drug Contraindication: Treatment Not Indicated
[2024-04-21 15:18] VITALS: BP 111/57; PULSE 73; RESP 16; TEMP 36.3; O2SAT 96
[2024-04-21 19:11] VITALS: BP 121/58; PULSE 71; RESP 15; TEMP 37.2; O2SAT 97
[2024-04-21] MEDS: Atorvastatin Calcium 20 MG TABLET PO (21:57)
[2024-04-22 03:20] VITALS: BP 103/58; PULSE 56; RESP 18; TEMP 36.3; O2SAT 100
[2024-04-22] MEDS: Piperacillin Sodium/Tazobactam 3.375 GM in 0.9 % Sodium Chloride 50 ML IV (04:25)
--- NOTE | 2024-04-22 07:05 | PC.NURSE ---
Patient slept most of the night, did request medication for sever pain, ambulated to the bathroom with walker and stand by assist. Compliant with medication, IVF paused due to positional IV, patient refused new IV site and wanted to get some rest without constant IV pump beeping. Patient was advised the fluids are ordered and should be infusing, patient agreed to have them restarted if still needed in the morning.
[2024-04-22 07:50] VITALS: BP 116/88; PULSE 81; RESP 16; TEMP 36.6; O2SAT 99
--- NOTE | 2024-04-22 07:52 | PM.PNGS ---
Subjective Subjective Date of Service: 04/22/24 Interval history: Continues to complain of abdominal pain Physical Exam Vital Signs: Vital Signs: Last Vital Signs Temp 97.3 F 04/22/24 03:20 Pulse 56 04/22/24 03:20 Resp 18 04/22/24 03:20 BP 103/58 L 04/22/24 03:20 Pulse Ox 100 04/22/24 03:20 O2 Del Method Room Air 04/22/24 03:20 BMI result Body Mass Index 46.4 Const: General: no acute distress Nutritional Appearance: well nourished Orientation/consciousness: patient oriented x3 GI: Inspection: Yes normal to inspection and No distended Palpation (GI): Soft to palpation, nontender, no guarding and not rigid Neuro: General: patient oriented x3 Extrem: General: Yes no clubbing, cyanosis or edema Objective Data Active Medications Acetaminophen (Acetaminophen 325 Mg Tablet) 650 mg PO Q6H PRN PRN Reason: Pain, Mild 1-3,fever,headache Albuterol Sulfate (Albuterol Sulfate 90 Mcg 8 Gm Inhaler) 2 puff INHALE RQ4H PRN PRN Reason: wheezing Atorvastatin Calcium (Atorvastatin Calcium 20 Mg Tablet) 20 mg PO BEDTIME [facility] Last Admin: 04/21/24 21:57 Dose: 20 mg Documented By: FATEMEH Calcium Carbonate (Calcium Carbonate 750 Mg Tab.Chew) 750 mg PO Q4H PRN PRN Reason: Heartburn Gabapentin (Gabapentin 300 Mg Capsule) 900 mg PO TID [facility] Last Admin: 04/21/24 21:57 Dose: 900 mg Documented By: FATEMEH Guaifenesin (Guaifenesin 200 Mg/10 Ml 10 Ml Liquid) 10 ml PO Q4H PRN PRN Reason: Cough Last Admin: 04/19/24 21:39 Dose: 10 ml Documented By: FRANCESCO Hydrochlorothiazide (Hydrochlorothiazide 25 Mg Tablet) 25 mg PO DAILY [facility]; Protocol Last Admin: 04/21/24 07:40 Dose: 25 mg Documented By: JONNY Lisinopril (Lisinopril 10 Mg Tablet) 10 mg PO DAILY [facility]; Protocol Last Admin: 04/21/24 07:40 Dose: 10 mg Documented By: JONNY Magnesium Hydroxide (Milk Of Magnesia 30 Ml Oral.Susp) 30 ml PO DAILY PRN PRN Reason: Constipation Melatonin (Melatonin 3 Mg Tablet) 6 mg PO BEDTIME PRN PRN Reason: Insomnia Nitroglycerin (Nitroglycerin 0.4 Mg Tab.Subl) 0.4 mg SUBLINGUAL Q5M PRN PRN Reason: Chest Pain Ondansetron HCl (Ondansetron Hcl 4 Mg/2 Ml Vial) 4 mg IVPUSH Q8H PRN PRN Reason: Nausea and Vomiting Last Admin: 04/21/24 17:50 Dose: 4 mg Documented By: JONNY Oxycodone HCl (Oxycodone Hcl Immed Release 5 Mg Tablet) 5 mg PO Q4H PRN PRN Reason: Pain, Moderate(Pain Scale 4-6) Last Admin: 04/18/24 16:02 Dose: 5 mg Documented By: MI Oxycodone HCl (Oxycodone Hcl Immed Release 5 Mg Tablet) 10 mg PO Q4H PRN PRN Reason: Pain, Severe (Pain Scale 7-10) Prochlorperazine Edisylate (Prochlorperazine Edisylate 10 Mg/2 Ml Vial) 10 mg IVPUSH Q6H PRN PRN Reason: Nausea and Vomiting Last Admin: 04/21/24 07:40 Dose: 10 mg Documented By: JONNY Sodium Chloride (0.9 % Sodium Chloride Flush 3 Ml Syringe) 3 ml [facility] Last Admin: 04/22/24 01:47 Dose: Not Given Documented By: FATEMEH Non-Admin Reason: Previously Administered Labs 04/17/24 13:25 04/17/24 13:25 Procedures Date of Service Date of Service: 04/22/24 Progress Note: A&P Assessment and plan (1) Sigmoid diverticulitis: Status: Acute (2) Abdominal pain: Status: Acute Plan Abdominal pain out of proportion to physical findings. Patient reports not completing meal although her chart currently indicates 100% of her meal eaten. Patient has been on chronic Percocet 10 q.i.d. p.r.n. for pain for several years. We will consult Gastroenterology as patient has never undergone colonoscopy or endoscopy. Stop parenteral antibiotic and pain medication. A.m. laboratories pending. Time Spent With Patient Time: Total time managing care of this patient today ____ minutes. Quality Stroke Does the patient have a stroke diagnosis?: No VTE Prior VTE?: No VTE Risk Level:: Medical - low VTE Device Contraindication: N/A - Device Ordered VTE Drug Contraindication: Treatment Not Indicated
--- NOTE | 2024-04-22 08:12 | P.CNGI_ITS ---
History of Present Illness Data of Consult Service Date: 04/22/24 Primary Care Provider: Matthew Licona III, MD HPI Reason for consult: abdominal pain 53 year old female with hx of hypertension, obesity and HTN who I am seeing for assessment for abdominal pain She noted 1-2 weeks of left sided crampy pain localized to the LLQ and radiating to the suprapubic area. It is associated with nausea/vomiting, diarrhea and subjective fevers and poor appetite. She cant say if worse with eat or any reliving factors. she does say she has had loose stools since cholecystectomy several months ago. She had presented to [facility] and had CT with diverticulosis and recevied PO Abx. Due to ongoign sx she came to [facility] and had another Ct scan which aslo showed diverticulosis, and small kidney stone with hip arthropathy. she takes oxycodone 4 times a day for her musculoskeletal pain. Review of Systems 2 Review of Systems: Constitutional : No Weight loss, No Fever, No Chills ENT/Mouth : No sore throat, No Rhinorrhea Eyes: No Swelling, No Redness Cardiovascular : No Chest Pain, No SOB, No Edema Respiratory : No Cough, No Sputum, No Wheezing Gastrointestinal : see HPI Genitourinary : NO Dysuria, No Urinary Frequency, No Hematuria, No Urgency Musculoskeletal : + joint pain, No Myalgias, No Joint Swelling Skin : No Skin Lesions, No rash Neuro : No Weakness, No Numbness, No Dizziness, No Headache Psych : No Anxiety/Panic, No Depression Heme/Lymph: No Bruising, No Lymphadenopathy Endocrine : No Polyuria, No Polydipsia All other systems reviewed and are negative. [facility] Family History Family History Mother Arthritis Heart problem Father Diabetes Colon cancer Family history of prostate cancer Arthritis Son Nerve damage Asthma Daughter Asthma Daughter Asthma Surgical History Surgical History Hx of section History of laparoscopic cholecystectomy Hx of hernia repair Social History Social History Household Members: Family Housing: House Do you presently have visiting nurse or other home services: Yes ([employer] daily) Alcohol intake: current Alcohol intake frequency: holidays/special occasions only Patient Tobacco Use Status: Never used Tobacco service: No Meds Allergies Allergy/AdvReac Type Severity Reaction Status Date / Time amoxicillin [From Augmentin] Allergy Hives Verified 04/17/24 13:21 clavulanic acid Allergy Hives Verified 04/17/24 13:21 [From Augmentin] Active Medications: Current Medications Acetaminophen (Acetaminophen 325 Mg Tablet) 650 mg PO Q6H PRN PRN Reason: Pain, Mild 1-3,fever,headache Albuterol Sulfate (Albuterol Sulfate 90 Mcg 8 Gm Inhaler) 2 puff INHALE RQ4H PRN PRN Reason: wheezing Atorvastatin Calcium (Atorvastatin Calcium 20 Mg Tablet) 20 mg PO BEDTIME [facility] Last Admin: 04/21/24 21:57 Dose: 20 mg Calcium Carbonate (Calcium Carbonate 750 Mg Tab.Chew) 750 mg PO Q4H PRN PRN Reason: Heartburn Gabapentin (Gabapentin 300 Mg Capsule) 900 mg PO TID [facility] Last Admin: 04/21/24 21:57 Dose: 900 mg Guaifenesin (Guaifenesin 200 Mg/10 Ml 10 Ml Liquid) 10 ml PO Q4H PRN PRN Reason: Cough Last Admin: 04/19/24 21:39 Dose: 10 ml Hydrochlorothiazide (Hydrochlorothiazide 25 Mg Tablet) 25 mg PO DAILY [facility]; Protocol Last Admin: 04/21/24 07:40 Dose: 25 mg Lisinopril (Lisinopril 10 Mg Tablet) 10 mg PO DAILY [facility]; Protocol Last Admin: 04/21/24 07:40 Dose: 10 mg Magnesium Hydroxide (Milk Of Magnesia 30 Ml Oral.Susp) 30 ml PO DAILY PRN PRN Reason: Constipation Melatonin (Melatonin 3 Mg Tablet) 6 mg PO BEDTIME PRN PRN Reason: Insomnia Nitroglycerin (Nitroglycerin 0.4 Mg Tab.Subl) 0.4 mg SUBLINGUAL Q5M PRN PRN Reason: Chest Pain Ondansetron HCl (Ondansetron Hcl 4 Mg/2 Ml Vial) 4 mg IVPUSH Q8H PRN PRN Reason: Nausea and Vomiting Last Admin: 04/21/24 17:50 Dose: 4 mg Oxycodone HCl (Oxycodone Hcl Immed Release 5 Mg Tablet) 5 mg PO Q4H PRN PRN Reason: Pain, Moderate(Pain Scale 4-6) Last Admin: 04/18/24 16:02 Dose: 5 mg Oxycodone HCl (Oxycodone Hcl Immed Release 5 Mg Tablet) 10 mg PO Q4H PRN PRN Reason: Pain, Severe (Pain Scale 7-10) Prochlorperazine Edisylate (Prochlorperazine Edisylate 10 Mg/2 Ml Vial) 10 mg IVPUSH Q6H PRN PRN Reason: Nausea and Vomiting Last Admin: 04/21/24 07:40 Dose: 10 mg Sodium Chloride (0.9 % Sodium Chloride Flush 3 Ml Syringe) 3 ml IVFLUSH [facility] Last Admin: 04/22/24 01:47 Dose: Not Given Home Medications ?Medication ?Instructions ?Recorded ?Confirmed ?Last Taken ?Type cyanocobalamin (vitamin B-12) 5,000 mcg PO DAILY 10/11/22 04/17/24 1 Week Ago History 5,000 mcg sublingual tablet ~04/10/24 (Vitamin B-12) gabapentin 300 mg capsule 900 mg PO TID 10/11/22 04/17/24 1 Week Ago History ~04/10/24 hydrochlorothiazide 25 mg tablet 25 mg PO DAILY 10/11/22 04/17/24 1 Week Ago History ~04/10/24 lisinopril 10 mg tablet 10 mg PO DAILY 10/11/22 04/17/24 1 Week Ago History ~04/10/24 nystatin 100,000 unit/gram topical 100,000 unit topical BID PRN 10/11/22 04/17/24 Unknown History powder Fungal Infection oxycodone-acetaminophen 10 mg-325 1 tab PO QID PRN Pain 10/11/22 04/17/24 Unknown History mg tablet valacyclovir 500 mg tablet 500 mg PO BID PRN Outbreaks 10/11/22 04/17/24 Unknown History acetaminophen 500 mg tablet 500 mg PO Q6H PRN Pain 04/17/24 04/17/24 Unknown History albuterol sulfate 90 mcg/actuation 2 puff inhalation Q4H PRN wheezing 04/17/24 04/17/24 Unknown History aerosol inhaler (Ventolin HFA) atorvastatin 20 mg tablet 20 mg PO BEDTIME 04/17/24 04/17/24 1 Week Ago History ~04/10/24 lidocaine 5 % topical ointment 1 appl topical BID PRN Pain 04/17/24 04/17/24 Unknown History nitroglycerin 0.4 mg sublingual 0.4 mg sublingual Q5M PRN Chest 04/17/24 04/17/24 Unknown History tablet Pain ondansetron 4 mg disintegrating 4 mg PO Q8H PRN Nausea And Vomiting 04/17/24 04/17/24 Unknown History tablet Physical Exam 2 Vital Signs: Vital Signs: Last Vital Signs Temp 97.8 F 04/22/24 07:50 Pulse 81 04/22/24 07:50 Resp 16 04/22/24 07:50 BP 116/88 04/22/24 07:50 Pulse Ox 99 04/22/24 07:50 O2 Del Method Room Air 04/22/24 07:50 BMI result Body Mass Index 46.4 EXAM: GENERAL: The patient is well developed and nontoxic. VITAL SIGNS:see workflow HEENT: Nonicteric sclerae, PERRLA, EOMI. Oropharynx clear. Moist mucous membranes. Conjunctivae appear well perfused. No thyroid mass. CHEST: Chest wall is nontender. HEART: Regular rate and rhythm without murmurs. LUNGS: Clear to auscultation bilaterally. ABDOMEN: Soft, positive bowel sounds, tender LLQ and suprapubic area, no organomegaly.no flank tenderness SKIN: No rash, no excessive bruising, petechiae, or purpura. NEUROLOGIC: Cranial nerves II-XII intact without motor/sensory deficit. Psych: normal affect Results Labs 04/22/24 07:58 04/22/24 07:[address] scan - abdomen: Attestation: I personally reviewed and interpreted this imaging study as follows: (severe OA left hip, diverticulosis, thickened esophagus and stomach ) Assessment and Plan (1) Abdominal pain: Qualifiers: Abdominal location: left lower quadrant Qualified Code(s): R10.32 - Left lower quadrant pain Status: Acute Plan 1/ LLQ abdominal pain, with diarrhea and no acute findings on imaging. neg UA and GI PCR. She does have severe left sided hip arthropathy so uncertain is this could be referred pain. ddx: myofascial pain, c diff, narcotic bowel syndrome - diarrhea could also be BAM from recent cholecystectomy PLAN: 1/ trial of relistor and bentyl and assess response 2/ consider EGD and colo this week depending on OR availability otherwise o/p f/u or alternative testing wth e.g ba enema 3/ check c diff PCR, if neg can consider cholestyramine Procedures Date of Service Date of Service: 04/22/24
[2024-04-22] MEDS: Gabapentin 300 MG CAPSULE 900 MG PO ×3 (08:20→20:34)
[2024-04-22] MEDS: lisinopriL 10 MG TABLET PO (08:20)
[2024-04-22] MEDS: hydroCHLOROthiazide 25 MG TABLET PO (08:20)
[2024-04-22] MEDS: oxyCODONE HCl Immed Release 5 MG TABLET 10 MG PO ×3 (08:20→23:48)
[2024-04-22] MEDS: 0.9 % Sodium Chloride Flush 3 ML SYRINGE IVFLUSH ×2 (08:21→17:26)
[2024-04-22 08:40] LABS: Hemoglobin 11.1 g/dl (12.0-16.0); Mean Corpuscular HGB Conc 32.6 g/dl (31.0-35.0); Mean Corpuscular Hemoglobin 26.5 pg (27.0-33.0); Mean Corpuscular Volume 81.1 fL (80.0-98.0); Mean Platelet Volume 12.8 fL (9.4-12.3); Platelet Count 211 X10*3/uL (160-400); Red Blood Count 4.19 X10*6/uL (4.20-5.50); Red Cell Distribution Width 15.1 % (11.0-16.0); White Blood Count 6.2 X10*3/uL (4.8-10.8)
[2024-04-22 09:21] LABS: Anion Gap 13 (12-20); Blood Urea Nitrogen 7 mg/dL (9-16); Calcium 8.9 mg/dL (8.4-10.2); Carbon Dioxide 32 mmol/L (22-29); Chloride 101 mmol/L (96-108); Creatinine Clr Calc Pharmacy 91.7; Estimated Glomerular Filt Rate > 60; Glucose Random 99 mg/dL (60-115); Potassium 2.7 mmol/L (3.3-5.1); Sodium 143 mmol/L (135-145)
[2024-04-22] MEDS: Potassium Chloride Packet 20 MEQ PACKET 40 MEQ PO (10:38)
[2024-04-22 16:00] VITALS: BP 131/68; PULSE 85; RESP 12; TEMP 36.2; O2SAT 99
[2024-04-22] MEDS: Dicyclomine HCl 10 MG CAPSULE PO ×2 (17:24→20:33)
[2024-04-22] MEDS: Atorvastatin Calcium 20 MG TABLET PO (20:34)
[2024-04-22] MEDS: Lactated Ringers 1,000 ML 100 ML IVCONT (20:34)
[2024-04-22] MEDS: ondansetron HCL 4 MG/2 ML VIAL IVPUSH (23:48)
[2024-04-22 23:52] VITALS: BP 137/83; PULSE 74; RESP 16; TEMP 36.5; O2SAT 93
[2024-04-23] MEDS: Lactated Ringers 1,000 ML 100 ML IVCONT ×2 (06:24→16:32)
[2024-04-23] MEDS: oxyCODONE HCl Immed Release 5 MG TABLET 10 MG PO ×4 (06:33→21:59)
[2024-04-23] MEDS: Prochlorperazine Edisylate 10 MG/2 ML VIAL IVPUSH ×2 (06:33→16:26)
[2024-04-23 08:00] VITALS: BP 122/72; PULSE 72; RESP 16; TEMP 36.6; O2SAT 100
[2024-04-23 08:00] LABS: Anion Gap 12 (12-20); Blood Urea Nitrogen 8 mg/dL (9-16); Calcium 8.9 mg/dL (8.4-10.2); Carbon Dioxide 35 mmol/L (22-29); Chloride 100 mmol/L (96-108); Creatinine Clr Calc Pharmacy 84.8; Estimated Glomerular Filt Rate > 60; Glucose Random 91 mg/dL (60-115); Potassium 3.2 mmol/L (3.3-5.1); Sodium 144 mmol/L (135-145)
[2024-04-23] MEDS: Acetaminophen 325 MG TABLET 650 MG PO (08:28)
[2024-04-23] MEDS: hydroCHLOROthiazide 25 MG TABLET PO (08:28)
[2024-04-23] MEDS: Gabapentin 300 MG CAPSULE 900 MG PO ×3 (08:28→21:59)
[2024-04-23] MEDS: Dicyclomine HCl 10 MG CAPSULE PO ×4 (08:28→21:59)
[2024-04-23] MEDS: lisinopriL 10 MG TABLET PO (08:29)
[2024-04-23] MEDS: Potassium Chloride Packet 20 MEQ PACKET 40 MEQ PO (10:18)
--- NOTE | 2024-04-23 11:26 | PM.PNGS ---
Subjective Subjective Date of Service: 04/23/24 Interval history: Reports persistent LLQ/suprapubic pain and nausea. Physical Exam Vital Signs: Vital Signs: Last Vital Signs Temp 97.9 F 04/23/24 08:00 Pulse 72 04/23/24 08:00 Resp 16 04/23/24 08:00 BP 122/72 04/23/24 08:00 Pulse Ox 100 04/23/24 08:00 O2 Del Method Room Air 04/23/24 08:00 BMI result Body Mass Index 46.4 Const: General: comfortable, no acute distress and alert GI: Other: moderate LLQ/suprapubic tenderness Inspection: No distended Palpation (GI): Soft to palpation and no guarding Skin: General skin exam: no rashes or lesions noted Objective Data Active Medications Acetaminophen (Acetaminophen 325 Mg Tablet) 650 mg PO Q6H PRN PRN Reason: Pain, Mild 1-3,fever,headache Last Admin: 04/23/24 08:28 Dose: 650 mg Documented By: MI Albuterol Sulfate (Albuterol Sulfate 90 Mcg 8 Gm Inhaler) 2 puff INHALE RQ4H PRN PRN Reason: wheezing Atorvastatin Calcium (Atorvastatin Calcium 20 Mg Tablet) 20 mg PO BEDTIME [facility] Last Admin: 04/22/24 20:34 Dose: 20 mg Documented By: LYSMoncho Calcium Carbonate (Calcium Carbonate 750 Mg Tab.Chew) 750 mg PO Q4H PRN PRN Reason: Heartburn Dicyclomine HCl (Dicyclomine Hcl 10 Mg Capsule) 10 mg PO QIDACHS [facility] Last Admin: 04/23/24 11:24 Dose: 10 mg Documented By: CONOR Gabapentin (Gabapentin 300 Mg Capsule) 900 mg PO TID [facility] Last Admin: 04/23/24 08:28 Dose: 900 mg Documented By: MI Guaifenesin (Guaifenesin 200 Mg/10 Ml 10 Ml Liquid) 10 ml PO Q4H PRN PRN Reason: Cough Last Admin: 04/19/24 21:39 Dose: 10 ml Documented By: FRANCESCO Hydrochlorothiazide (Hydrochlorothiazide 25 Mg Tablet) 25 mg PO DAILY [facility]; Protocol Last Admin: 04/23/24 08:28 Dose: 25 mg Documented By: MI Lactated Ringer's (Lr) 1,000 mls @ 100 mls/hr IVCONT .Q10H [facility] Last Admin: 04/23/24 06:24 Dose: 100 mls/hr Documented By: INESSA Lisinopril (Lisinopril 10 Mg Tablet) 10 mg PO DAILY [facility]; Protocol Last Admin: 04/23/24 08:29 Dose: 10 mg Documented By: MI Magnesium Hydroxide (Milk Of Magnesia 30 Ml Oral.Susp) 30 ml PO DAILY PRN PRN Reason: Constipation Melatonin (Melatonin 3 Mg Tablet) 6 mg PO BEDTIME PRN PRN Reason: Insomnia Methylnaltrexone [place] (Methylnaltrexone [place] 12 Mg/0.6 Ml Syringe) 12 mg SUBCUT DAILY [facility] Last Admin: 04/23/24 08:30 Dose: 12 mg Documented By: MI Nitroglycerin (Nitroglycerin 0.4 Mg Tab.Subl) 0.4 mg SUBLINGUAL Q5M PRN PRN Reason: Chest Pain Ondansetron HCl (Ondansetron Hcl 4 Mg/2 Ml Vial) 4 mg IVPUSH Q8H PRN PRN Reason: Nausea and Vomiting Last Admin: 04/22/24 23:48 Dose: 4 mg Documented By: INESSA Oxycodone HCl (Oxycodone Hcl Immed Release 5 Mg Tablet) 5 mg PO Q4H PRN PRN Reason: Pain, Moderate(Pain Scale 4-6) Last Admin: 04/18/24 16:02 Dose: 5 mg Documented By: MI Oxycodone HCl (Oxycodone Hcl Immed Release 5 Mg Tablet) 10 mg PO Q4H PRN PRN Reason: Pain, Severe (Pain Scale 7-10) Last Admin: 04/23/24 11:23 Dose: 10 mg Documented By: CONOR Polyethylene Glycol/Electrolytes (Peg 3350/Na Sulf,Bicarb,Cl/Kcl 4,000 Ml Soln.Recon) 4,000 ml PO ONCE ONE Stop: 04/23/24 18:46 Prochlorperazine Edisylate (Prochlorperazine Edisylate 10 Mg/2 Ml Vial) 10 mg IVPUSH Q6H PRN PRN Reason: Nausea and Vomiting Last Admin: 04/23/24 06:33 Dose: 10 mg Documented By: INESSA Sodium Chloride (0.9 % Sodium Chloride Flush 3 Ml Syringe) 3 ml IVFLUSH [facility]SHIFT [facility] Last Admin: 04/23/24 08:32 Dose: Not Given Documented By: MI Non-Admin Reason: IV Running Labs 04/22/24 07:58 04/23/24 07:01 Labs: Laboratory Results - last 24 hr 04/23/24 07:01 Anion Gap 12 Estim Creat Clear Calc 84.8 Estimated GFR > 60 Random Glucose 91 Calcium 8.9 Procedures Date of Service Date of Service: 04/23/24 Progress Note: A&P Assessment and plan (1) Abdominal pain: Status: Acute (2) Influenza: Status: Acute Plan Continues with abdominal symptoms out of proportion to physical exam findings. Work up has since been unrevealing. Overall well appearing. Seen by GI who plans for upper endo/colonoscopy tomorrow. Cont abx for now. Further plan as directed by findings. Time Spent With Patient Time: Total time managing care of this patient today ____ minutes. Quality Stroke Does the patient have a stroke diagnosis?: No VTE Prior VTE?: No VTE Risk Level:: Medical - low VTE Device Contraindication: N/A - Device Ordered VTE Drug Contraindication: Treatment Not Indicated
--- NOTE | 2024-04-23 12:38 | MHC.CM.PN ---
EMR REVIEWED. PT CONTINUES WITH LLQ PAIN AND NAUSEA. PT WILL HAVE AN ENDO/COLONOSCOPY TOMORROW. CM WILL CONTINUE TO FOLLOW FOR ANY CHANGE TO DC PLAN.
[2024-04-23 15:24] VITALS: BP 116/69; PULSE 61; RESP 18; TEMP 36.1; O2SAT 100
--- NOTE | 2024-04-23 16:11 | P.PNGI_ITS ---
Subjective Subjective Date of Service: 04/23/24 Interval History: ongoing lower abdominal pain loose stools maybe felt a slight improvement with bently and relistor she had a low K been replenished Critical Care Time (minutes): 0 Physical Exam 2 Vital Signs: Vital Signs: Last Vital Signs Temp 97.0 F 04/23/24 15:24 Pulse 61 04/23/24 15:24 Resp 18 04/23/24 15:24 BP 116/69 04/23/24 15:24 Pulse Ox 100 04/23/24 15:24 O2 Del Method Room Air 04/23/24 15:24 BMI result Body Mass Index 46.4 EXAM: GENERAL: The patient is well developed and nontoxic-obese VITAL SIGNS:see workflow HEENT: Nonicteric sclerae, PERRLA, EOMI. Oropharynx clear. Moist mucous membranes. Conjunctivae appear well perfused. No thyroid mass. CHEST: Chest wall is nontender. HEART: Regular rate and rhythm without murmurs. LUNGS: Clear to auscultation bilaterally. ABDOMEN: Soft, positive bowel sounds, tender lower abdo but no guarding, no organomegaly.no flank tenderness SKIN: No rash, no excessive bruising, petechiae, or purpura. NEUROLOGIC: Cranial nerves II-XII intact without motor/sensory deficit. Psych: normal affect Objective Data Labs 04/22/24 07:58 04/23/24 07:01 Labs: Laboratory Results - last 24 hr 04/23/24 07:01 Sodium 144 Potassium 3.2 L Chloride 100 Carbon Dioxide 35 H Anion Gap 12 BUN 8 L Creatinine 0.80 Estim Creat Clear Calc 84.8 Estimated GFR > 60 Random Glucose 91 Calcium 8.9 Procedures Date of Service Date of Service: 04/23/24 Progress Note: A&P Assessment and plan (1) Abdominal pain: Status: Acute Plan 1/ Undifferentiated lower abdominal pain, but has low K so could be due to colitis, or advanced adenoma, PLAN: 1/ cont bentyl and relistor for the moment 2/ recheck K and mag in the AM and replenish if low 3/ tentaively on schedule for egd, colo tomorrow. Time Spent With Patient Time: Total time managing care of this patient today ____ minutes. Quality Stroke Does the patient have a stroke diagnosis?: No VTE Prior VTE?: No VTE Risk Level:: Medical - low VTE Device Contraindication: N/A - Device Ordered VTE Drug Contraindication: Treatment Not Indicated
[2024-04-23] MEDS: PEG 3350/Na Sulf,Bicarb,Cl/KCL 4,000 ML SOLN.RECON 4000 ML PO (19:39)
[2024-04-23] MEDS: Atorvastatin Calcium 20 MG TABLET PO (21:58)
[2024-04-23] MEDS: ondansetron HCL 4 MG/2 ML VIAL IVPUSH (21:59)
[2024-04-23 23:17] VITALS: BP 124/57; PULSE 58; RESP 18; TEMP 36.1; O2SAT 100
--- NOTE | 2024-04-24 04:43 | PC.NURSE ---
Patient aware of plan for today for colonoscopy and upper endoscopy. NPO after midnight. Could not tolerate bowel prep very good despite Zofran. Still more than half a bottle left. Last BM around 3 AM loose brown color.
[2024-04-24] MEDS: oxyCODONE HCl Immed Release 5 MG TABLET 10 MG PO ×2 (06:43→14:39)
[2024-04-24 07:13] LABS: Magnesium 1.9 mg/dL (1.6-2.6)
[2024-04-24 07:48] VITALS: BP 106/55; PULSE 76; RESP 16; TEMP 36.1; O2SAT 94
[2024-04-24] MEDS: Lactated Ringers 1,000 ML 100 ML IVCONT (08:06)
[2024-04-24] MEDS: Gabapentin 300 MG CAPSULE 900 MG PO ×3 (08:51→20:12)
[2024-04-24] MEDS: Sodium Phosphate,Mono-Dibasic 133 ML ENEMA PR ×2 (09:30→09:49)
[2024-04-24] MEDS: Potassium Chloride/H20 10 MEQ/100 ML PIGGYBACK 100 MEQ IV ×2 (10:33→11:38)
[2024-04-24] MEDS: KCl 20 mEq in 0.9 % Sodium ChL 20 MEQ/1,000 ML IV.SOLN 80 MEQ IVCONT (10:34)
[2024-04-24 13:09] VITALS: BP 113/57; PULSE 73; RESP 16; TEMP 37.4; O2SAT 98; BMI 46.4
--- NOTE | 2024-04-24 13:14 | P.PNGI_ITS ---
Subjective Subjective Date of Service: 04/24/24 Interval History: LLQ pain ongoing no nausea no fever no rectal bleeding Critical Care Time (minutes): 0 Physical Exam 2 Vital Signs: Vital Signs: Last Vital Signs Temp 96.9 F 04/24/24 07:48 Pulse 76 04/24/24 07:48 Resp 16 04/24/24 07:48 BP 106/55 L 04/24/24 07:48 Pulse Ox 94 04/24/24 07:48 O2 Del Method Room Air 04/24/24 07:48 BMI result Body Mass Index 46.4 EXAM: GENERAL: The patient is well developed and nontoxic, obese VITAL SIGNS:see workflow HEENT: Nonicteric sclerae, PERRLA, EOMI. Oropharynx clear. Moist mucous membranes. Conjunctivae appear well perfused. No thyroid mass. CHEST: Chest wall is nontender. HEART: Regular rate and rhythm without murmurs. LUNGS: Clear to auscultation bilaterally. ABDOMEN: Soft, positive bowel sounds, tender LLQ, no organomegaly.no flank tenderness SKIN: No rash, no excessive bruising, petechiae, or purpura. NEUROLOGIC: Cranial nerves II-XII intact without motor/sensory deficit. Psych: normal affect Objective Data Labs 04/22/24 07:58 04/24/24 06:27 Labs: Laboratory Results - last 24 hr 04/24/24 04/24/24 06:27 06:37 Hold Purple Top SEE NOTE Potassium 3.0 L Magnesium 1.9 Procedures Date of Service Date of Service: 04/24/24 Progress Note: A&P Assessment and plan (1) Abdominal pain: Status: Acute Plan 1/ abdominal pain, ? myofascial or referred from hip PLAN: 1/ EGD due to thickened stomach and esophgaus seen on CT, colo or sigmoidoscopy depending on prep to eval left colo specifically, 2/ if above neg then consider trigger point injection, further imaging of lower back and hip on left Time Spent With Patient Time: Total time managing care of this patient today ____ minutes. Quality Stroke Does the patient have a stroke diagnosis?: No VTE Prior VTE?: No VTE Risk Level:: Medical - low VTE Device Contraindication: N/A - Device Ordered VTE Drug Contraindication: Treatment Not Indicated
--- NOTE | 2024-04-24 13:18 | HO.ANESPROP2 ---
HPI - Anesthesia Eval Consult details Narrative: for EGD and colonoscopy PMFSH Active Problems Active Problems: All Active Problems Influenza (Acute) Acute hypokalemia (Acute) Abdominal pain (Acute) Sigmoid diverticulitis (Acute) Arthritis (Acute) HTN (hypertension) (Acute) Cholelithiasis (Acute) Morbid obesity (Acute) Family History Family History Mother Arthritis Heart problem Father Diabetes Colon cancer Family history of prostate cancer Arthritis Son Nerve damage Asthma Daughter Asthma Daughter Asthma Family history of problems with anesthesia: No Surgical History Surgical History Hx of section History of laparoscopic cholecystectomy Hx of hernia repair History of Problems with Anesthesia: No Social History Social History Household Members: Family Housing: House Do you presently have visiting nurse or other home services: Yes ([employer] daily) Alcohol intake: current Alcohol intake frequency: holidays/special occasions only Patient Tobacco Use Status: Never used Tobacco service: No Meds Allergies Allergy/AdvReac Type Severity Reaction Status Date / Time amoxicillin [From Augmentin] Allergy Hives Verified 04/17/24 13:21 clavulanic acid Allergy Hives Verified 04/17/24 13:21 [From Augmentin] Active Medications: Current Medications Acetaminophen (Acetaminophen 325 Mg Tablet) 650 mg PO Q6H PRN PRN Reason: Pain, Mild 1-3,fever,headache Last Admin: 04/23/24 08:28 Dose: 650 mg Albuterol Sulfate (Albuterol Sulfate 90 Mcg 8 Gm Inhaler) 2 puff INHALE RQ4H PRN PRN Reason: wheezing Atorvastatin Calcium (Atorvastatin Calcium 20 Mg Tablet) 20 mg PO BEDTIME [facility] Last Admin: 04/23/24 21:58 Dose: 20 mg Calcium Carbonate (Calcium Carbonate 750 Mg Tab.Chew) 750 mg PO Q4H PRN PRN Reason: Heartburn Dicyclomine HCl (Dicyclomine Hcl 10 Mg Capsule) 10 mg PO QIDACHS [facility] Last Admin: 04/24/24 11:38 Dose: Not Given Gabapentin (Gabapentin 300 Mg Capsule) 900 mg PO TID [facility] Last Admin: 04/24/24 08:51 Dose: 900 mg Guaifenesin (Guaifenesin 200 Mg/10 Ml 10 Ml Liquid) 10 ml PO Q4H PRN PRN Reason: Cough Last Admin: 04/19/24 21:39 Dose: 10 ml Hydrochlorothiazide (Hydrochlorothiazide 25 Mg Tablet) 25 mg PO DAILY [facility]; Protocol Last Admin: 04/24/24 08:46 Dose: Not Given Potassium Chloride/Sodium Chloride (Kcl 20 Meq In 0.9 % Sodium Chl) 20 meq in 1,000 mls @ 80 mls/hr IVCONT .[id number] [facility] Last Infusion: 04/24/24 10:51 Dose: 0 mls/hr Lisinopril (Lisinopril 10 Mg Tablet) 10 mg PO DAILY [facility]; Protocol Last Admin: 04/24/24 08:46 Dose: Not Given Magnesium Hydroxide (Milk Of Magnesia 30 Ml Oral.Susp) 30 ml PO DAILY PRN PRN Reason: Constipation Melatonin (Melatonin 3 Mg Tablet) 6 mg PO BEDTIME PRN PRN Reason: Insomnia Methylnaltrexone [place] (Methylnaltrexone [place] 12 Mg/0.6 Ml Syringe) 12 mg SUBCUT DAILY [facility] Last Admin: 04/24/24 08:51 Dose: 12 mg Nitroglycerin (Nitroglycerin 0.4 Mg Tab.Subl) 0.4 mg SUBLINGUAL Q5M PRN PRN Reason: Chest Pain Ondansetron HCl (Ondansetron Hcl 4 Mg/2 Ml Vial) 4 mg IVPUSH Q8H PRN PRN Reason: Nausea and Vomiting Last Admin: 04/23/24 21:59 Dose: 4 mg Oxycodone HCl (Oxycodone Hcl Immed Release 5 Mg Tablet) 5 mg PO Q4H PRN PRN Reason: Pain, Moderate(Pain Scale 4-6) Last Admin: 04/18/24 16:02 Dose: 5 mg Oxycodone HCl (Oxycodone Hcl Immed Release 5 Mg Tablet) 10 mg PO Q4H PRN PRN Reason: Pain, Severe (Pain Scale 7-10) Last Admin: 04/24/24 06:43 Dose: 10 mg Prochlorperazine Edisylate (Prochlorperazine Edisylate 10 Mg/2 Ml Vial) 10 mg IVPUSH Q6H PRN PRN Reason: Nausea and Vomiting Last Admin: 04/23/24 16:26 Dose: 10 mg Sodium Biphosphate/Sodium Phosphate (Sodium Phosphate,[place]-Dibasic 133 Ml Enema) [address] ONCE PRN PRN Reason: Consult order Last Admin: 04/24/24 09:49 Dose: 133 ml Sodium Chloride (0.9 % Sodium Chloride Flush 3 Ml Syringe) 3 ml IVFLUSH QSHIFT [facility] Last Admin: 04/24/24 08:00 Dose: Not Given Home Medications ?Medication ?Instructions ?Recorded ?Confirmed ?Last Taken ?Type cyanocobalamin (vitamin B-12) 5,000 mcg PO DAILY 10/11/22 04/17/24 1 Week Ago History 5,000 mcg sublingual tablet ~04/10/24 (Vitamin B-12) gabapentin 300 mg capsule 900 mg PO TID 10/11/22 04/17/24 1 Week Ago History ~04/10/24 hydrochlorothiazide 25 mg tablet 25 mg PO DAILY 10/11/22 04/17/24 1 Week Ago History ~04/10/24 lisinopril 10 mg tablet 10 mg PO DAILY 10/11/22 04/17/24 1 Week Ago History ~04/10/24 nystatin 100,000 unit/gram topical 100,000 unit topical BID PRN 10/11/22 04/17/24 Unknown History powder Fungal Infection oxycodone-acetaminophen 10 mg-325 1 tab PO QID PRN Pain 10/11/22 04/17/24 Unknown History mg tablet valacyclovir 500 mg tablet 500 mg PO BID PRN Outbreaks 10/11/22 04/17/24 Unknown History acetaminophen 500 mg tablet 500 mg PO Q6H PRN Pain 04/17/24 04/17/24 Unknown History albuterol sulfate 90 mcg/actuation 2 puff inhalation Q4H PRN wheezing 04/17/24 04/17/24 Unknown History aerosol inhaler (Ventolin HFA) atorvastatin 20 mg tablet 20 mg PO BEDTIME 04/17/24 04/17/24 1 Week Ago History ~04/10/24 lidocaine 5 % topical ointment 1 appl topical BID PRN Pain 04/17/24 04/17/24 Unknown History nitroglycerin 0.4 mg sublingual 0.4 mg sublingual Q5M PRN Chest 04/17/24 04/17/24 Unknown History tablet Pain ondansetron 4 mg disintegrating 4 mg PO Q8H PRN Nausea And Vomiting 04/17/24 04/17/24 Unknown History tablet Exam Height,Weight and Vital Signs: Height 4 ft 11 in Weight 104.32 kg Last Vital Signs Temp 96.9 F 04/24/24 07:48 Pulse 76 04/24/24 07:48 Resp 16 04/24/24 07:48 BP 106/55 L 04/24/24 07:48 Pulse Ox 94 04/24/24 07:48 O2 Del Method Room Air 04/24/24 07:48 Pertinent Lab Results Pertinent Lab Results: Laboratory Tests 04/17/24 04/17/24 04/19/24 13:25 22:22 06:33 WBC 4.3 L RBC 4.69 Hgb 12.3 Hct 36.8 L MCV 78.5 L MCH 26.2 L MCHC 33.4 RDW 14.5 Plt Count 201 MPV 11.4 Immature Gran % (Auto) 0.2 Neut % (Auto) 49.0 Lymph % (Auto) 41.2 H Lucas % (Auto) 9.2 Eos % (Auto) 0.2 Baso % (Auto) 0.2 Lymph # (Auto) 1.8 Lucas # (Auto) 0.4 Eos # (Auto) 0.0 Baso # (Auto) 0.0 Abs Immat Gran (auto) 0.01 Absolute Neuts (auto) 2.1 Absolute Nucleated RBC 0.000 Nucleated RBC % (auto) 0.0 Smear Tech's Comments VERIFIED Hold Purple Top Sodium 142 Potassium 3.0 L Chloride 107 Carbon Dioxide 23 Anion Gap 15 BUN 9 Creatinine 0.78 Estim Creat Clear Calc 88.0 Estimated GFR > 60 Random Glucose 92 Calcium 9.0 Magnesium 2.1 Total Bilirubin 0.7 AST 29 ALT 11 Alkaline Phosphatase 53 Total Protein 7.8 Albumin 4.2 Lipase 23 Urine Color Yellow Urine Appearance Clear Urine pH 6.0 Ur Specific [place] >= 1.030 H Urine Protein Trace Urine Glucose (UA) Negative Urine Ketones 40 Urine Blood Negative Urine Nitrite Negative Ur Leukocyte Esterase Negative Stl C. cayetanensis PCR Not Detected Stool Rotavirus A PCR Not Detected Stl Adenov F 40/ PCR Not Detected Stool Astrovirus (PCR) Not Detected Stool Campylobacter PCR Not Detected Stool Cryptosporidium PCR Not Detected Stl Sh Tox Pr E STEC PCR Not Detected Stool E coli O157 PCR Not applicable Stl Enterotoxigenic E PCR Not Detected Stool EPEC (PCR) Not Detected Stool EAEC (PCR) Not Detected Stl E. histolytica PCR Not Detected Stool Giardia Lamblia PCR Not Detected Stl P. shigelloides PCR Not Detected Stool Salmonella PCR Not Detected Stool Sapovirus (PCR) Not Detected Stl Shigella/EIEC PCR Not Detected St Y.enterocolitica PCR Not Detected Stool Vibrio (PCR) Not Detected Stl Vibrio cholerae PCR Not Detected Stl Norovirus GI/GII PCR Not Detected 04/22/24 04/23/24 04/24/24 07:58 07:01 06:27 WBC 6.2 RBC 4.19 L Hgb 11.1 L Hct 34.0 L MCV 81.1 MCH 26.5 L MCHC 32.6 RDW 15.1 Plt Count 211 MPV 12.8 H Immature Gran % (Auto) Neut % (Auto) Lymph % (Auto) Lucas % (Auto) Eos % (Auto) Baso % (Auto) Lymph # (Auto) Lucas # (Auto) Eos # (Auto) Baso # (Auto) Abs Immat Gran (auto) Absolute Neuts (auto) Absolute Nucleated RBC 0.000 Nucleated RBC % (auto) 0.0 Smear Tech's Comments Hold Purple Top Sodium 143 144 Potassium 2.7 L* 3.2 L 3.0 L Chloride 101 100 Carbon Dioxide 32 H 35 H Anion Gap 13 12 BUN 7 L 8 L Creatinine 0.74 0.80 Estim Creat Clear Calc 91.7 84.8 Estimated GFR > 60 > 60 Random Glucose 99 91 Calcium 8.9 8.9 Magnesium 1.9 Total Bilirubin AST ALT Alkaline Phosphatase Total Protein Albumin Lipase Urine Color Urine Appearance Urine pH Ur Specific [place] Urine Protein Urine Glucose (UA) Urine Ketones Urine Blood Urine Nitrite Ur Leukocyte Esterase Stl C. cayetanensis PCR Stool Rotavirus A PCR Stl Adenov F 40/41 PCR Stool Astrovirus (PCR) Stool Campylobacter PCR Stool Cryptosporidium PCR Stl Sh Tox Pr E STEC PCR Stool E coli O157 PCR Stl Enterotoxigenic E PCR Stool EPEC (PCR) Stool EAEC (PCR) Stl E. histolytica PCR Stool Giardia Lamblia PCR Stl P. shigelloides PCR Stool Salmonella PCR Stool Sapovirus (PCR) Stl Shigella/EIEC PCR St Y.enterocolitica PCR Stool Vibrio (PCR) Stl Vibrio cholerae PCR Stl Norovirus GI/GII PCR 04/24/24 06:37 WBC RBC Hgb Hct MCV MCH MCHC RDW Plt Count MPV Immature Gran % (Auto) Neut % (Auto) Lymph % (Auto) Lucas % (Auto) Eos % (Auto) Baso % (Auto) Lymph # (Auto) Lucas # (Auto) Eos # (Auto) Baso # (Auto) Abs Immat Gran (auto) Absolute Neuts (auto) Absolute Nucleated RBC Nucleated RBC % (auto) Smear Tech's Comments Hold Purple Top SEE NOTE Sodium Potassium Chloride Carbon Dioxide Anion Gap BUN Creatinine Estim Creat Clear Calc Estimated GFR Random Glucose Calcium Magnesium Total Bilirubin AST ALT Alkaline Phosphatase Total Protein Albumin Lipase Urine Color Urine Appearance Urine pH Ur Specific [place] Urine Protein Urine Glucose (UA) Urine Ketones Urine Blood Urine Nitrite Ur Leukocyte Esterase Stl C. cayetanensis PCR Stool Rotavirus A PCR Stl Adenov F 40/41 PCR Stool Astrovirus (PCR) Stool Campylobacter PCR Stool Cryptosporidium PCR Stl Sh Tox Pr E STEC PCR Stool E coli O157 PCR Stl Enterotoxigenic E PCR Stool EPEC (PCR) Stool EAEC (PCR) Stl E. histolytica PCR Stool Giardia Lamblia PCR Stl P. shigelloides PCR Stool Salmonella PCR Stool Sapovirus (PCR) Stl Shigella/EIEC PCR St Y.enterocolitica PCR Stool Vibrio (PCR) Stl Vibrio cholerae PCR Stl Norovirus GI/GII PCR Airway Mallampati Class: II TM Dist: <=3cm Neck ROM: Full Loose/Missing/Broken Teeth: No Heart: ok Lungs: ok Assessment and Plan Assessment Anesthesia Assessment: Anesthesia Plan Discussed and Chart Reviewed Final Anesthetic Review Family History of Problems with Anesthesia: No History of Problems with Anesthesia: No NPO: Yes ASA Class: III Final Preanesthetic Review: No Changes in Pt Med Stat, Meds/Allgs Chart Reviewed, Consent Obtained/Reviewed and Anes Risks/Benef Reviewed Patient Risk: High Procedure Risk: Intermediate Anesthetic Plan Anesthetic Plan: Agree w/ Assess. and Plan and TIVA Disposition: Standard PACU
--- NOTE | 2024-04-24 13:19 | MHC.SHP ---
Pre-Procedural Eval Section A - 24 Hr Update-Section A only Date of Service: 04/24/24 The patient is an INPATIENT: Yes The patient has been examined within 24 hours of the surgical procedure. The History & Physical has been completed within 30 days and I have reviewed it.: Yes Section B - Complete if H&P > 30 days Chief Complaint: Sigmoid Diverticulitis Allergies: Allergies Allergy/AdvReac Type Severity Reaction Status Date / Time amoxicillin [From Augmentin] Allergy Hives Verified 04/17/24 13:21 clavulanic acid Allergy Hives Verified 04/17/24 13:21 [From Augmentin] Plan Diagnosis/Plan: Unchanged I have reviewed the history and physical and performed a pertinent physical examination on my patient. No changes have occurred unless specified. Time Spent With Patient Time: Total time managing care of this patient today ____ minutes.
--- NOTE | 2024-04-24 13:51 | HO.OPN-COLON ---
Colonoscopy Operative Note Operative Note Date of Service: 04/24/24 Narrative: Operative Information Procedure Description: EGD, Colonoscopy Indication: LLQ pain, abn imaging stomach Anesthesia: MAC FLEXIBLE TRANSORAL UPPER GASTROINTESTINAL ENDOSCOPY AND COLONOSCOPY PROCEDURE NOTE UPPER ENDOSCOPY Consent: Indications for the procedure and potential complications of bleeding, perforation, reaction to medications and missed diagnosis were discussed with the patient and informed consent was obtained. Instrument: Olympus GIF H 190 J mid size upper endoscope Monitoring: Vital signs and clinical assessment, continuous EKG monitoring, Pulse oximetry, Carbon Dioxide monitoring and blood pressure monitoring were done throughout the procedure. Procedure: The patient was placed in the left lateral decubitis position and pre-procedure medications were administered and a bite block was placed. The endoscope was inserted into the mouth and advanced under direct vision to the third part of duodenum. A careful inspection was made as the upper endoscope was withdrawn including a retroflexed examination of the proximal stomach; Findings and interventions are described below. Findings: Larynx:normal Esophagus: GE junction at 37 cm, diaphragm hiatus at 37 cm, schatzki ring and mild esophagitis Stomach: Normal mucosa. Grade 2 flap valve on retroflexed examination of the cardia. few fundic gland polyps Duodenum: Normal bulb and descending duodenum, Intervention: none COLONOSCOPY Instrument: Olympus variable stiffness pediatric scope 190L Colonoscopy Monitoring: Vital signs and clinical assessment, continuous EKG monitoring, Pulse oximetry, Carbon Dioxide monitoring and blood pressure monitoring were done throughout the procedure. Colon withdrawal time was 7 minutes. Procedure: The patient was placed in the left lateral decubitis position and pre-procedure medications were administered. After a digital rectal examination of the ano-rectum, the video colonoscope was inserted into the rectum and advanced through the colon to the cecum/TI. The colonoscope was slowly withdrawn in a retrograde panoramic fashion and the colon mucosa was carefully examined including a retroflexed view of the rectum. Findings and interventions are described below. Procedure Difficulty:moderate Findings: Terminal Ileum-not intubated Cecum:normal Ascending Colon: normal Transverse Colon -normal Descending Colon:normal Sigmoid Colon: moderate severe diverticulosis Rectum: Retroflexion with small internal hemorrhoids, grade I Anorectum - normal Colon preparation: [place] Bowel Preparation Scale Right colon; 1-2 Transverse colon: 1-2 Left colon; 2 (0 = Unprepared colon segment with mucosa not seen due to solid stool that cannot be cleared. 1 = Portion of mucosa of the colon segment seen, but other areas of the colon segment not well seen due to staining, residual stool and/or opaque liquid. 2 = Minor amount of residual staining, small fragments of stool and/or opaque liquid, but mucosa of colon segment seen well. 3 = Entire mucosa of colon segment seen well with no residual staining, small fragments of stool or opaque liquid) Impression and Post Procedure Diagnosis: Endoscopy Findings: schatzki ring mild esophagitis fundic gland polyps Colonoscopy Findings: diverticulosis internal hemorrhoids Plan: no cause for pain seen on EGD or colonoscopy, recommend eval for myofascial pain or referred hip pain, maybe lidocaine patch or trigger point injection Above findings were reviewed with the patient and relevant handouts were provided if indicated.
[2024-04-24 14:04] VITALS: BP 112/61; PULSE 78; RESP 17; TEMP 36.3; O2SAT 99
[2024-04-24 14:19] VITALS: BP 130/74; PULSE 80; RESP 20; TEMP 36.3; O2SAT 100
[2024-04-24 16:00] VITALS: BP 122/70; PULSE 63; RESP 18; TEMP 37.1; O2SAT 100
[2024-04-24] MEDS: Dicyclomine HCl 10 MG CAPSULE PO ×2 (16:28→20:12)
[2024-04-24] MEDS: HYDROmorphone HCl 0.5 MG/0.5 ML SYRINGE IVPUSH (16:48)
--- NOTE | 2024-04-24 17:42 | PM.PNGS ---
Subjective Subjective Date of Service: 04/24/24 Interval history: Late entry from this morning. Awaiting colonoscopy today. Continues to c/o LLQ/suprapubic pain. Apparently unable to finish half the prep due to nausea. Physical Exam Vital Signs: Vital Signs: Last Vital Signs Temp 98.7 F 04/24/24 16:00 Pulse 63 04/24/24 16:00 Resp 18 04/24/24 16:00 BP 122/70 04/24/24 16:00 Pulse Ox 100 04/24/24 16:00 O2 Del Method Room Air 04/24/24 16:00 BMI result Body Mass Index 46.4 Const: General: comfortable, no acute distress and alert GI: Palpation (GI): Soft to palpation and Tenderness to palpation present (GI) (mild LLQ/suprapubic) Skin: General skin exam: no rashes or lesions noted Objective Data Active Medications Acetaminophen (Acetaminophen 325 Mg Tablet) 650 mg PO Q6H PRN PRN Reason: Pain, Mild 1-3,fever,headache Last Admin: 04/23/24 08:28 Dose: 650 mg Documented By: MI Albuterol Sulfate (Albuterol Sulfate 90 Mcg 8 Gm Inhaler) 2 puff INHALE RQ4H PRN PRN Reason: wheezing Atorvastatin Calcium (Atorvastatin Calcium 20 Mg Tablet) 20 mg PO BEDTIME [facility] Last Admin: 04/23/24 21:58 Dose: 20 mg Documented By: INESSA Calcium Carbonate (Calcium Carbonate 750 Mg Tab.Chew) 750 mg PO Q4H PRN PRN Reason: Heartburn Dicyclomine HCl (Dicyclomine Hcl 10 Mg Capsule) 10 mg PO QIDACHS [facility] Last Admin: 04/24/24 16:28 Dose: 10 mg Documented By: PALOMO Gabapentin (Gabapentin 300 Mg Capsule) 900 mg PO TID [facility] Last Admin: 04/24/24 14:39 Dose: 900 mg Documented By: PALOMO Guaifenesin (Guaifenesin 200 Mg/10 Ml 10 Ml Liquid) 10 ml PO Q4H PRN PRN Reason: Cough Last Admin: 04/19/24 21:39 Dose: 10 ml Documented By: FRANCESCO Hydrochlorothiazide (Hydrochlorothiazide 25 Mg Tablet) 25 mg PO DAILY [facility]; Protocol Last Admin: 04/24/24 08:46 Dose: Not Given Documented By: PALOMO Non-Admin Reason: NPO Potassium Chloride/Sodium Chloride (Kcl 20 Meq In 0.9 % Sodium Chl) 20 meq in 1,000 mls @ 80 mls/hr IVCONT .[id number] [facility] Last Infusion: 04/24/24 14:50 Dose: 80 mls/hr Documented By: PALOMO Lisinopril (Lisinopril 10 Mg Tablet) 10 mg PO DAILY [facility]; Protocol Last Admin: 04/24/24 08:46 Dose: Not Given Documented By: PALOMO Non-Admin Reason: NPO Magnesium Hydroxide (Milk Of Magnesia 30 Ml Oral.Susp) 30 ml PO DAILY PRN PRN Reason: Constipation Melatonin (Melatonin 3 Mg Tablet) 6 mg PO BEDTIME PRN PRN Reason: Insomnia Methylnaltrexone [place] (Methylnaltrexone [place] 12 Mg/0.6 Ml Syringe) 12 mg SUBCUT DAILY [facility] Last Admin: 04/24/24 08:51 Dose: 12 mg Documented By: PALOMO Naloxone HCl (Naloxone Hcl 0.4 Mg/Ml Vial) 0.04 mg IVPUSH Q5M PRN PRN Reason: Excessive sedation or RR < 8 Nitroglycerin (Nitroglycerin 0.4 Mg Tab.Subl) 0.4 mg SUBLINGUAL Q5M PRN PRN Reason: Chest Pain Ondansetron HCl (Ondansetron Hcl 4 Mg/2 Ml Vial) 4 mg IVPUSH Q8H PRN PRN Reason: Nausea and Vomiting Last Admin: 04/23/24 21:59 Dose: 4 mg Documented By: INESSA Oxycodone HCl (Oxycodone Hcl Immed Release 5 Mg Tablet) 5 mg PO Q4H PRN PRN Reason: Pain, Moderate(Pain Scale 4-6) Last Admin: 04/18/24 16:02 Dose: 5 mg Documented By: MI Oxycodone HCl (Oxycodone Hcl Immed Release 5 Mg Tablet) 10 mg PO Q4H PRN PRN Reason: Pain, Severe (Pain Scale 7-10) Last Admin: 04/24/24 14:39 Dose: 10 mg Documented By: PALOMO Prochlorperazine Edisylate (Prochlorperazine Edisylate 10 Mg/2 Ml Vial) 10 mg IVPUSH Q6H PRN PRN Reason: Nausea and Vomiting Last Admin: 04/23/24 16:26 Dose: 10 mg Documented By: MI Sodium Biphosphate/Sodium Phosphate (Sodium Phosphate,[place]-Dibasic 133 Ml Enema) 133 ml [place] ONCE PRN PRN Reason: Consult order Last Admin: 04/24/24 09:49 Dose: 133 ml Documented By: PALOMO Sodium Chloride (0.9 % Sodium Chloride Flush 3 Ml Syringe) [facility] Last Admin: 04/24/24 15:02 Dose: Not Given Documented By: PALOMO Non-Admin Reason: IV Running Labs 04/22/24 07:58 04/24/24 06:27 Labs: Laboratory Results - last 24 hr 04/24/24 04/24/24 06:27 06:37 Hold Purple Top SEE NOTE Magnesium 1.9 Procedures Date of Service Date of Service: 04/24/24 Progress Note: A&P Assessment and plan (1) Acute hypokalemia: Status: Acute (2) Abdominal pain: Status: Acute Plan NPO, Awaiting upper endo/colonoscopy today. Hypokalemia on labs likely due to GI losses, continue repletion IV. Further plan dependent on findings. Time Spent With Patient Time: Total time managing care of this patient today ____ minutes. Quality Stroke Does the patient have a stroke diagnosis?: No VTE Prior VTE?: No VTE Risk Level:: Medical - low VTE Device Contraindication: N/A - Device Ordered VTE Drug Contraindication: Treatment Not Indicated
[2024-04-24] MEDS: Lidocaine 4 % Patch ADH..PATCH 1 PATCH TRANSDERMA (20:12)
[2024-04-24] MEDS: Atorvastatin Calcium 20 MG TABLET PO (20:12)
[2024-04-25] VITALS: BP 129/69; PULSE 74; RESP 16; TEMP 36.4; O2SAT 94
[2024-04-25] MEDS: oxyCODONE HCl Immed Release 5 MG TABLET 10 MG PO ×3 (01:05→12:04)
[2024-04-25] MEDS: KCl 20 mEq in 0.9 % Sodium ChL 20 MEQ/1,000 ML IV.SOLN 80 MEQ IVCONT (03:49)
[2024-04-25] MEDS: Lidocaine 4 % Patch ADH..PATCH 1 PATCH TRANSDERMA (07:59)
[2024-04-25 08:00] VITALS: BP 125/83; PULSE 91; RESP 16; TEMP 36.3; O2SAT 97
[2024-04-25] MEDS: Dicyclomine HCl 10 MG CAPSULE PO ×2 (08:00→12:04)
[2024-04-25] MEDS: lisinopriL 10 MG TABLET PO (08:00)
[2024-04-25] MEDS: hydroCHLOROthiazide 25 MG TABLET PO (08:00)
[2024-04-25] MEDS: Gabapentin 300 MG CAPSULE 900 MG PO (08:01)
--- NOTE | 2024-04-25 10:06 | PM.DS ---
DS: Providers Provider Date of Service: 04/25/24 Date of admission: 04/17/24 16:15 Date of discharge: 04/25/24 Primary care physician: Matthew Licona III, MD Attending physician on admission: Ridge Hammond Consults: 04/22/24 07:36 Consult to Gastroenterology Routine Consulting Provider: Yovani Alicia Reason for consultation: persistent abd pain, vomiting, diverticulosis Attending physician on discharge: Ridge Hammond DS: Diagnosis Discharge Diagnosis (1) Abdominal pain: Status: Acute (2) Arthritis: Status: Acute DS: Summary Hospital Course Hospital Course: HPI AT ADMISSION: Lali Prieto is a 53 year old female with PMH significant for hypertension who presented to the ED with complaints of LLQ pain. She reports this pain started about a week and a half ago and was left sided but then became more localized to the left lower quadrant and suprapubic region. It is associated with nausea/vomiting, diarrhea and subjective fevers. She was seen at [facility] where they did a CT scan which showed moderate sigmoid diverticulitis and was discharged on oral levaquin and flagyl. She however has been unable to tolerate the antibiotics due to continue nausea and vomiting. She has been unable to tolerate any oral intake for the past few days. Her pain has gotten worse and is now severe and therefore presented to the ED. Repeat CT scan is pending. She has never had a colonoscopy before. She has never had any previous episodes of similar pain. HOSPITAL COURSE: She was admitted to the surgical service for further treatment of her intractable abd pain. She was kept on clear liquids, on IV zosyn for presumed diverticulitis. Repeat CT scan showed extensive sigmoid diverticulosis without significant surrounding inflammation, end-stage arthropathy bilateral hip joints. She had no significant improvement in her symptoms the following day without any suggestive etiology of her abd pain on imaging. Stool studies were therefore obtained given her significant GI symptoms which were negative. She continued to have abdominal symptoms and therefore GI was consulted. EGD/colonoscopy was planned and performed on 04/24/24 without cause for pain identified on EGD or colonoscopy. Lidocaine patch was ordered. She had some improvement in her symptoms. Discussed with the patient it may be referred pain from her hip osteoarthritis and recommended weight loss, f/u with her orthopedic surgeon. On the day of discharge, she was tolerating a solid diet. She felt overall improved. She was hemodynamically stable. Her abdomen was benign and soft, without significant tenderness, no peritoneal signs. She was discharged to home on 04/25/24 with f/u with her PCP and orthopedic surgeon. Status at Discharge Overall status at discharge: patient is progressing back to baseline Time Attestation Discharge Coordination Time (in mins): 35 Quality: Safe Use of Opioids Does Pt have an Active Cancer Diagnosis on the Problem List?: No Quality: Stroke Does the patient have a stroke diagnosis?: No Physical Exam Vital Signs: Vital Signs: Last Vital Signs Temp 97.3 F 04/25/24 08:00 Pulse 91 04/25/24 08:00 Resp 16 04/25/24 08:00 BP 125/83 04/25/24 08:00 Pulse Ox 97 04/25/24 08:00 O2 Del Method Room Air 04/25/24 08:00 BMI result Body Mass Index 46.4 Const: General: comfortable, no acute distress and alert Orientation/consciousness: patient oriented x3 Resp: Effort & Inspection: normal respiratory effort GI: Other: soft, nondistended very mild LLQ tenderness, no guarding or rigidity Skin: General skin exam: no rashes or lesions noted Neuro: General: patient oriented x3 DS: Data Data Completed and Pending Completed studies during hospitalization [Text1]: Procedures Inspection of Lower Intestinal Tract, Via Natural or Artificial Opening Endoscopic (04/17/24) Inspection of Upper Intestinal Tract, Via Natural or Artificial Opening Endoscopic (04/17/24) Discharge Plan Discharge Anticipated Discharge Date/Time: 04/25/24 17:47 Patient Disposition: Home Health Service Discharge Diagnosis: abdominal pain, b/l hip osteoarthritis Referrals: Matthew Licona III, MD [Primary Care Provider] - 1 Week Discharge Medications: New lidocaine [Lidoderm] 5 % adhesive patch,medicated 1 patch topical DAILY Qty: 15 0RF Rx Instructions: leave on most painful area for up to 12 hrs Continued atorvastatin 20 mg tablet 20 mg PO BEDTIME ondansetron 4 mg tablet,disintegrating 4 mg PO Q8H PRN (Reason: Nausea And Vomiting) nitroglycerin 0.4 mg tablet, sublingual 0.4 mg sublingual Q5M PRN (Reason: Chest Pain ) albuterol sulfate [Ventolin HFA] 90 mcg/actuation HFA aerosol inhaler 2 puff inhalation Q4H PRN (Reason: wheezing) acetaminophen 500 mg Tablet 500 mg PO Q6H PRN (Reason: Pain) lidocaine 5 % Ointment 1 appl TOPICAL BID PRN (Reason: Pain) hydrochlorothiazide 25 mg tablet 25 mg PO DAILY oxycodone-acetaminophen 10-325 mg tablet 1 tab PO QID PRN (Reason: Pain) valacyclovir 500 mg tablet 500 mg PO BID PRN (Reason: Outbreaks) nystatin 100,000 unit/gram powder 100,000 unit topical BID PRN (Reason: Fungal Infection) lisinopril 10 mg tablet 10 mg PO DAILY cyanocobalamin (vitamin B-12) [Vitamin B-12] 5,000 mcg tablet, sublingual 5,000 mcg PO DAILY gabapentin 300 mg capsule 900 mg PO TID No Action celecoxib 100 mg Capsule 100 mg PO BID oxycodone 10 mg tablet 10 mg PO Q8H PRN (Reason: pain) Qty: 3 0RF Rx Instructions: Partial Fill upon patient request. Discharge Orders: Discharge Order (Routine); Ordered 04/25/24 Ordered By: Elvia Talbot Diet: Advance to usual diet Activity on Discharge: As tolerated Stand Alone Forms: Patient Portal Discharge page Print Language: Panamanian Activity Restrictions/Additional Instructions: Follow up with your PCP. Follow up with your orthopedic surgeon regarding THR. Call Your Doctor If: ? ? -Your temperature exceeds 101.5? F? ? ? -You experience excessive pain or swelling ? ? -You have an unexpected reaction to medication ? ? -You experience continued vomiting/nausea Care Plan Goals: Return to baseline health and resume normal activities. Health Concerns: LLQ pain hip osteoarthritis HTN diverticulosis Plan of Treatment: F/u with PCP and orthopedic surgeon Assessment: Improved Patient Instructions: High Fiber Diet (GEN) Discharge Date/Time: 04/25/24 13:14
--- NOTE | 2024-04-25 10:58 | HO.POSTANES ---
Post Anesthesia Evaluation Post Anesthesia Evaluation Date of Service: 04/25/24 Vital Signs: Vital Signs Temp Pulse Resp BP Pulse Ox O2 Del Method 04/25/24 08:00 97.3 F 91 16 125/83 97 Room Air 04/25/24 00:00 97.5 F 74 16 129/69 94 Room Air Anesthesia: Monitored Mental Status: Awake Pain Control: Satisfactory Nausea/Vomiting: None Hydration: Adequate Anesthesia-Related Issues: No Anes. Related Issues
--- NOTE | 2024-04-25 11:04 | PM.PNGS ---
Subjective Subjective Date of Service: 04/25/24 Interval history: Feels somewhat better. Lidocaine patch on abdomen may be helping a little. States b/l total hip and knee replacements on hold due to weight. Feels comfortable going home. Physical Exam Vital Signs: Vital Signs: Last Vital Signs Temp 97.3 F 04/25/24 08:00 Pulse 91 04/25/24 08:00 Resp 16 04/25/24 08:00 BP 125/83 04/25/24 08:00 Pulse Ox 97 04/25/24 08:00 O2 Del Method Room Air 04/25/24 08:00 BMI result Body Mass Index 46.4 Const: General: comfortable, no acute distress and alert Orientation/consciousness: patient oriented x3 Resp: Effort & Inspection: normal respiratory effort GI: Inspection: No distended Palpation (GI): Soft to palpation, Tenderness to palpation present (GI) (very mild LLQ) and no guarding Skin: General skin exam: no rashes or lesions noted Neuro: General: patient oriented x3 Objective Data Active Medications Acetaminophen (Acetaminophen 325 Mg Tablet) 650 mg PO Q6H PRN PRN Reason: Pain, Mild 1-3,fever,headache Last Admin: 04/23/24 08:28 Dose: 650 mg Documented By: MI Albuterol Sulfate (Albuterol Sulfate 90 Mcg 8 Gm Inhaler) 2 puff INHALE RQ4H PRN PRN Reason: wheezing Atorvastatin Calcium (Atorvastatin Calcium 20 Mg Tablet) 20 mg PO BEDTIME [facility] Last Admin: 04/24/24 20:12 Dose: 20 mg Documented By: LYSZ Calcium Carbonate (Calcium Carbonate 750 Mg Tab.Chew) 750 mg PO Q4H PRN PRN Reason: Heartburn Dicyclomine HCl (Dicyclomine Hcl 10 Mg Capsule) 10 mg PO QIDACHS [facility] Last Admin: 04/25/24 08:00 Dose: 10 mg Documented By: TERRA Gabapentin (Gabapentin 300 Mg Capsule) 900 mg PO TID [facility] Last Admin: 04/25/24 08:01 Dose: 900 mg Documented By: TERRA Guaifenesin (Guaifenesin 200 Mg/10 Ml 10 Ml Liquid) 10 ml PO Q4H PRN PRN Reason: Cough Last Admin: 04/19/24 21:39 Dose: 10 ml Documented By: FRANCESCO Hydrochlorothiazide (Hydrochlorothiazide 25 Mg Tablet) 25 mg PO DAILY [facility]; Protocol Last Admin: 04/25/24 08:00 Dose: 25 mg Documented By: TERRA Potassium Chloride/Sodium Chloride (Kcl 20 Meq In 0.9 % Sodium Chl) 20 meq in 1,000 mls @ 80 mls/hr IVCONT .[id number] [facility] Last Admin: 04/25/24 03:49 Dose: 80 mls/hr Documented By: INESSA Lidocaine (Lidocaine 4 % Patch Adh..Patch) 1 patch TRANSDERMA DAILY [facility]; Protocol Last Admin: 04/25/24 07:59 Dose: 1 patch Documented By: TERRA Lisinopril (Lisinopril 10 Mg Tablet) 10 mg PO DAILY [facility]; Protocol Last Admin: 04/25/24 08:00 Dose: 10 mg Documented By: TERRA Magnesium Hydroxide (Milk Of Magnesia 30 Ml Oral.Susp) 30 ml PO DAILY PRN PRN Reason: Constipation Melatonin (Melatonin 3 Mg Tablet) 6 mg PO BEDTIME PRN PRN Reason: Insomnia Methylnaltrexone [place] (Methylnaltrexone [place] 12 Mg/0.6 Ml Syringe) 12 mg SUBCUT DAILY [facility] Last Admin: 04/25/24 07:59 Dose: 12 mg Documented By: TERRA Naloxone HCl (Naloxone Hcl 0.4 Mg/Ml Vial) 0.04 mg IVPUSH Q5M PRN PRN Reason: Excessive sedation or RR < 8 Nitroglycerin (Nitroglycerin 0.4 Mg Tab.Subl) 0.4 mg SUBLINGUAL Q5M PRN PRN Reason: Chest Pain Ondansetron HCl (Ondansetron Hcl 4 Mg/2 Ml Vial) 4 mg IVPUSH Q8H PRN PRN Reason: Nausea and Vomiting Last Admin: 04/23/24 21:59 Dose: 4 mg Documented By: INESSA Oxycodone HCl (Oxycodone Hcl Immed Release 5 Mg Tablet) 5 mg PO Q4H PRN PRN Reason: Pain, Moderate(Pain Scale 4-6) Last Admin: 04/18/24 16:02 Dose: 5 mg Documented By: MI Oxycodone HCl (Oxycodone Hcl Immed Release 5 Mg Tablet) 10 mg PO Q4H PRN PRN Reason: Pain, Severe (Pain Scale 7-10) Last Admin: 04/25/24 08:01 Dose: 10 mg Documented By: TERRA Prochlorperazine Edisylate (Prochlorperazine Edisylate 10 Mg/2 Ml Vial) 10 mg IVPUSH Q6H PRN PRN Reason: Nausea and Vomiting Last Admin: 04/23/24 16:26 Dose: 10 mg Documented By: MI Sodium Biphosphate/Sodium Phosphate (Sodium Phosphate,Kimble-Dibasic 133 Ml Enema) 133 ml OH ONCE PRN PRN Reason: Consult order Last Admin: 04/24/24 09:49 Dose: 133 ml Documented By: PALOMO Sodium Chloride (0.9 % Sodium Chloride Flush 3 Ml Syringe) [facility] Last Admin: 04/25/24 08:04 Dose: Not Given Documented By: TERRA Non-Admin Reason: IV Running Labs 04/22/24 07:58 04/24/24 06:27 Procedures Date of Service Date of Service: 04/25/24 Progress Note: A&P Assessment and plan (1) Abdominal pain: Status: Acute (2) Arthritis: Status: Acute Plan No cause for pain seen on EGD or colonoscopy. Results of yesterday procedure and negative work up for abd pain was discussed with the patient. Possible referred hip pain. Discussed f/u with orthopedic surgeon. Discussed f/u with weight management program or discussing with PCP for possible weight loss medicine. Stable for discharge to home today. Requesting [facility] services. Lidocaine patch prescribed. Time Spent With Patient Time: Total time managing care of this patient today ____ minutes. Quality Stroke Does the patient have a stroke diagnosis?: No VTE Prior VTE?: No VTE Risk Level:: Medical - low VTE Device Contraindication: N/A - Device Ordered VTE Drug Contraindication: Treatment Not Indicated
--- NOTE | 2024-04-25 11:08 | W.MHC.F2F ---
Service Date Service Date: 04/25/24 Encounter Date of encounter: 04/25/24 Reasons for Services Signs and symptoms assessed: abdominal pain, abdominal exam Reason for [facility]: other (pain assessment ) Homebound: Leaving the home is medically contraindicated at this time without the asist of a device and/or another person due th the listed conditions above and below. Reason homebound: weakness related to hospital stay Certification: Based on the above findings, I certify that this patient is confined to the home and needs intermittent [facility] care, physical therapy and/or speech therapy, or continues to need occupational therapy. The patient is under my care, and I have initiated the establishment of the plan of care. The patient will be followed by a physician who will periodically review the plan of care. Time Spent With Patient Time: Total time managing care of this patient today ____ minutes.
--- NOTE | 2024-04-25 11:22 | MHC.CM.PN ---
Addendum entered by Kirstin Cruz RN 04/25/24 13:09: Patient is aware [facility] may not accept, as there is not a skilled need. Addendum entered by Kirstin Cruz RN 04/25/24 11:41: Patient will dc home via private transport. Original Note: Patient medically cleared for dc home. Requesting [facility] for pain assessments, PA aware. Will transport home via [employer]. RN aware.
== END 2024-04-25 13:14 | disposition home health service (06) | DRG 244 ==
LOC: HO.ED 15:15 → HO.EDOVER 16:40 → HO.S3 20:36
PROVIDERS: Internal Medicine Gastroenterology; Registered Nurse Emergency; Surgery; Admitting Provider Physician Assistant Surgical; Emergency Provider Emergency Medicine Emergency Medical Services; PCP Internal Medicine; Visit Provider Physician Assistant Surgical
PROC: 0DJ08ZZ Inspection of Upper Intestinal Tract, Via Natural or Artificial Opening Endoscopic (ICD-10-PCS; principal; 2024-04-24 14:50)
DX: K57.32 Diverticulitis of large intestine without perforation or abscess without bleeding (principal); K22.2 Esophageal obstruction; I10 Essential (primary) hypertension; E87.6 Hypokalemia; M16.0 Bilateral primary osteoarthritis of hip; K20.90 Esophagitis, unspecified without bleeding; K31.7 Polyp of stomach and duodenum; K64.0 First degree hemorrhoids; Z79.899 Other long term (current) drug therapy
CPT/HCPCS: 36415; 74177; 80048; 80053; 81003; 83690; 83735; 84132; 85025; 85027; 87507; 99285; J0737; J1171; J2003; J2212; J2270; J2405; J2543; J2704; J3010; J3480; J7120; Q9967

== ENCOUNTER → 2024-04-17 15:16 | Outpatient (BNV) | payer OTHER, SELFPAY | PROVIDERS: Admitting Provider Physician Assistant Surgical; Emergency Provider Emergency Medicine Emergency Medical Services; PCP Internal Medicine; Visit Provider Radiology Diagnostic Radiology | DX: K57.30 Diverticulosis of large intestine without perforation or abscess without bleeding (principal); N20.0 Calculus of kidney; M16.0 Bilateral primary osteoarthritis of hip | CPT/HCPCS: 74177 ==

== ENCOUNTER → 2024-04-17 16:15 | Outpatient (BNV) | payer OTHER, SELFPAY | PROVIDERS: Admitting Provider Physician Assistant Surgical; Emergency Provider Emergency Medicine Emergency Medical Services; PCP Internal Medicine; Visit Provider Internal Medicine Gastroenterology | DX: R10.32 Left lower quadrant pain (principal) | CPT/HCPCS: 99223; 99232 ==

== ENCOUNTER → 2024-04-17 16:15 | Outpatient (BNV) | payer OTHER, SELFPAY | PROVIDERS: Admitting Provider Physician Assistant Surgical; Emergency Provider Emergency Medicine Emergency Medical Services; PCP Internal Medicine; Visit Provider Physician Assistant Surgical | DX: K57.32 Diverticulitis of large intestine without perforation or abscess without bleeding (principal); R10.9 Unspecified abdominal pain | CPT/HCPCS: 99222; 99232; G0180 ==

== ENCOUNTER 2024-05-01 11:51 | Emergency (ER) | payer OTHER, SELFPAY ==
--- NOTE | ~2024-05-01 | US_ITS ---
EXAMINATION: US LOWER EXTREMITY VEINS LIMITED FOLLOW UP RIGHT HISTORY: Right leg pain. DVT? COMPARISON: There are no prior studies for comparison. TECHNIQUE: Duplex and color Doppler sonographic examination of the deep venous system of the right lower extremity was performed. FINDINGS: The common femoral, superficial femoral, and popliteal veins are patent demonstrating normal compressibility, spontaneous flow, and augmentation. There is a normal color and spectral Doppler waveform appearance of the visualized deep venous system above the knee. The posterior tibial and peroneal veins are patent. There is a fluid collection in the popliteal fossa measuring 3.3 x 0.7 x 2.3 cm, consistent with a Brady's cyst. US/US venous duplex LE RT IMPRESSION: No evidence of acute DVT in the right lower extremity. Popliteal fossa Brady's cyst as described. Electronically signed by: Bharath Fong MD 05/01/2024 01:55 PM [facility]
--- NOTE | ~2024-05-01 | XR_ITS ---
EXAMINATION: XR CHEST CLINICAL INFORMATION: Sarcoidosis? Pneumonia? COMPARISON: None available. TECHNIQUE: Frontal view of the chest was obtained. FINDINGS: No hyperinflation. No consolidation, pleural fissure pneumothorax. He sinus along the medial right lower hemithorax likely artifactual. Cardiomediastinal silhouette size is normal. Osseous structures are intact. Patient's large body habitus. Degenerative changes in the left shoulder. XR/XR chest 1V IMPRESSION: No acute airspace disease based on single AP view chest. Electronically signed by: Adam Thompson MD 05/01/2024 01:01 PM [facility]
--- NOTE | ~2024-05-01 | XR_ITS ---
EXAMINATION: XR TIBIA FIBULA 2 VIEWS RIGHT HISTORY: Right tib/fib pain COMPARISON: There are no prior studies available for comparison. FINDINGS: AP and lateral views of the right tibia and fibula are submitted. Osseous mineralization is normal. There is irregularity of the lateral tibial plateau which may be projectional in nature. The ankle joint space is preserved. The soft tissues are unremarkable. XR/XR tibia fibula RT 2V IMPRESSION: Irregularity of the lateral tibial plateau which may be projectional in nature. If there is a history of trauma, dedicated knee films are recommended. Electronically signed by: Bharath Fong MD 05/01/2024 12:46 PM [facility]
--- NOTE | ~2024-05-01 | XR_ITS ---
EXAMINATION: XR KNEE 4 OR MORE VIEWS RIGHT HISTORY: tibial plateau fracture? COMPARISON: Correlation is made with plain films of the right tibia and fibula performed earlier in the day. FINDINGS: Four views of the right knee are submitted. The bones are osteopenic. There is no fracture or dislocation. There is mild to moderate osteoarthritis of the lateral compartment with joint space narrowing and osteophyte formation. The soft tissues are unremarkable. There is no joint effusion. XR/XR knee RT 4V IMPRESSION: Mild to moderate osteoarthritis of the lateral compartment. No evidence of fracture of the right knee. Electronically signed by: Bharath Fong MD 05/01/2024 02:29 PM [facility]
[2024-05-01 12:02] VITALS: BP 137/76; PULSE 89; RESP 18; TEMP 36.4; BMI 46.4
--- NOTE | 2024-05-01 12:14 | ED_ITS ---
HPI - General Adult General Chief complaint: Extremity Problem Stated complaint: reaction to med, concern for blood clot Time Seen by Provider: 05/01/24 15:03 Source: patient, RN notes reviewed and old records reviewed Mode of arrival: ambulatory Limitations: no limitations History of Present Illness ED Provider: Reagan HPI narrative: 54-year-old female with a past medical history significant for morbid obesity, hypertension, recent admission for diverticulitis presents for evaluation of right leg pain. Patient was discharged from this facility on 04/25/2024 after being admitted for diverticulitis. She had a CT scan that did not show any active diverticulitis and a colonoscopy that did not show any acute findings She was ultimately discharged home without any antibiotics. She states that she has been too weak to get out of bed since she was discharged home. The patient reports that she discussed with a follow up nurse today who recommended she return to the ER due to her continued weakness. The patient also has pain in her right leg and has a small purple shawna on her right mullen. She was concerned for a blood clot She complains of chronic pain to her right knee for the last 4 months or so Denies any fevers or chills. She continues to have left-sided lower abdominal pain that has improved since discharge with a still present The patient is on chronic oxycodone Related Data Home Medications ?Medication ?Instructions ?Recorded ?Confirmed cyanocobalamin (vitamin B-12) 5,000 mcg PO DAILY 10/11/22 05/01/24 5,000 mcg sublingual tablet (Vitamin B-12) gabapentin 300 mg capsule 900 mg PO TID 10/11/22 05/01/24 hydrochlorothiazide 25 mg tablet 25 mg PO DAILY 10/11/22 05/01/24 lisinopril 10 mg tablet 10 mg PO DAILY 10/11/22 05/01/24 nystatin 100,000 unit/gram topical 100,000 unit topical BID PRN 10/11/22 05/01/24 powder Fungal Infection oxycodone-acetaminophen 10 mg-325 1 tab PO QID PRN Pain 10/11/22 05/01/24 mg tablet valacyclovir 500 mg tablet 500 mg PO BID PRN Outbreaks 10/11/22 05/01/24 acetaminophen 500 mg tablet 500 mg PO Q6H PRN Pain 04/17/24 05/01/24 albuterol sulfate 90 mcg/actuation 2 puff inhalation Q4H PRN wheezing 04/17/24 05/01/24 aerosol inhaler (Ventolin HFA) atorvastatin 20 mg tablet 20 mg PO BEDTIME 04/17/24 05/01/24 lidocaine 5 % topical ointment 1 appl topical BID PRN Pain 04/17/24 05/01/24 nitroglycerin 0.4 mg sublingual 0.4 mg sublingual Q5M PRN Chest 04/17/24 05/01/24 tablet Pain ondansetron 4 mg disintegrating 4 mg PO Q8H PRN Nausea And Vomiting 04/17/24 05/01/24 tablet celecoxib 100 mg capsule 100 mg PO BID 05/01/24 05/01/24 Previous Rx's ?Medication ?Instructions ?Recorded lidocaine 5 % topical patch 1 patch topical DAILY #15 ea 04/25/24 (Lidoderm) Allergies Allergy/AdvReac Type Severity Reaction Status Date / Time amoxicillin [From Augmentin] Allergy Hives Verified 05/01/24 12:04 clavulanic acid Allergy Hives Verified 05/01/24 12:04 [From Augmentin] Review of Systems 2 Constitutional: Constitutional: Denies body ache(s), Denies chills, Denies fever(s) and Denies headache(s) Eyes: Eyes: Denies blurry vision ENT: Denies vertigo, Denies dizziness and Denies headache(s) Cardiovascular: Cardiovascular: Denies chest pain and Denies dyspnea Respiratory: Respiratory: Denies cough and Denies dyspnea Gastrointestinal: Gastrointestinal: Denies abdominal pain and Denies vomiting Musculoskeletal: Musculoskeletal: Denies back pain, Reports arthralgias, Reports joint swelling and Reports limited range of motion Integumentary/Breasts: Skin/Breast: Reports erythema and Denies rash Neurologic: Denies vertigo, Denies dizziness and Denies headache(s) PENDING SALE TO [facility] Past Medical History Surgical History Hx of section History of laparoscopic cholecystectomy Hx of hernia repair Family History Family History Mother Arthritis Heart problem Father Diabetes Colon cancer Family history of prostate cancer Arthritis Son Nerve damage Asthma Daughter Asthma Daughter Asthma Social History Social History Household Members: Family Housing: House Do you presently have visiting nurse or other home services: Yes ([employer] daily) Alcohol intake: never Comment: Dr Ravin gibson, hospitalist to order IV narcotic up on med surg unit Patient Tobacco Use Status: Never used Tobacco Smoked in Last 30 Days: No Use of substances other than those prescribed or required for medical reasons: No Advance Directives: No Advance Directives Information Provided: Yes Patient : No service: No Physical Exam ED Vital Signs: Vital Signs - 24 hr 05/01/24 12:02 05/01/24 16:24 05/01/24 20:47 Temperature 97.5 F 98.8 F 98.6 F Pulse Rate 89 86 83 Respiratory Rate 18 16 20 Blood Pressure 137/76 168/87 H 146/72 H Pulse Oximetry 96 98 Oxygen Delivery Method Room Air Room Air Room Air 05/02/24 06:07 05/02/24 08:10 Temperature 98.4 F 97.6 F Pulse Rate 87 75 Respiratory Rate 16 18 Blood Pressure 119/70 109/56 L Pulse Oximetry 98 95 Oxygen Delivery Method Room Air Room Air BMI result Body Mass Index 46.4 Const General: healthy appearing, comfortable, no acute distress, alert and awake Nutritional Appearance: well nourished Orientation/consciousness: patient oriented x3 HENMT Head: Yes normocephalic and Yes atraumatic Eyes Eyelids: Yes eyelids normal Conjunctivae: conjunctivae normal Sclerae: sclerae normal Corneas: corneas normal Pupils: Equal, round and reactive pupils present EOM: EOMs intact bilaterally Neck Neck: Yes full ROM Resp Effort & Inspection: normal respiratory effort, able to speak in complete sentences and not labored GI Inspection: No distended Palpation (GI): Soft to palpation, not firm, nontender, no guarding and not rigid Skin Other: The patient has a small area of ecchymosis to the right anterior mullen consistent with a vasculitis General skin exam: elasticity normal Neuro General: patient oriented x3 Cranial nerves: Yes CN's II-XII intact bilaterally, Yes Equal, round and reactive pupils present and Yes Bilaterally intact EOM present Cognition (Neuro): normal cognition Extrem Other: Moving all extremities well without any obvious deformities. Was no calf tenderness. No significant edema Course Course Course Narrative: RME: 54-year-old female recently discharged from the hospital presents to ED for right leg pain without any trauma described as 12/12. Patient states also right anterior tibial nodule that is also tender and painful. Patient denies any calf pain but does states anterior right tibial pain where there is a nodule. Patient denies any recent trauma. Exam positive for anterior right tibial tenderness/nodule. Right lower extremity negative for any swelling ecchymosis or deformity. Vascular motor neuro exam intact. Left lower extremity normal with motor neuro exam intact. Labs ultrasound x-ray ordered Medications Administered Generic Name Dose Route Start Last Admin Trade Name Freq PRN Reason Stop Dose Admin Acetaminophen 650 mg 05/01/24 19:12 05/02/24 06:38 Acetaminophen 325 Mg Tablet PO 650 mg Q6H PRN Administration Pain Atorvastatin Calcium 20 mg 05/01/24 21:00 05/01/24 20:49 Atorvastatin Calcium 20 Mg Tablet PO 20 mg BEDTIME PAT Administration Celecoxib 100 mg 05/01/24 23:00 05/02/24 00:08 Celecoxib 100 Mg Capsule PO 100 mg BID PAT Administration Gabapentin 900 mg 05/01/24 21:00 05/02/24 08:18 Gabapentin 300 Mg Capsule PO 900 mg TID PAT Administration Hydrochlorothiazide 25 mg 05/02/24 09:00 05/02/24 08:17 Hydrochlorothiazide 25 Mg Tablet PO 25 mg DAILY PAT Administration Protocol Lidocaine 1 patch 05/02/24 09:00 05/02/24 08:18 Lidocaine 4 % Patch Adh..Patch TRANSDERMA 1 patch DAILY PAT Administration Oxycodone HCl 10 mg 05/01/24 19:13 05/02/24 08:17 Oxycodone Hcl Immed Release 5 Mg Tablet PO 10 mg QID PRN Administration Pain Discontinued Medications Generic Name Dose Route Start Last Admin Trade Name Freq PRN Reason Stop Dose Admin Morphine Sulfate 15 mg 05/01/24 15:35 05/01/24 15:40 Morphine Sulfate Immed Release 15 Mg Tablet PO 05/01/24 15:36 15 mg ONCE ONE Administration Medical Decision Making Medical Decision Making [facility] Narrative: 54-year-old female presents for evaluation of right leg pain and weakness. I reviewed her recent admission with general surgery for diverticulitis. She was also seen by GI and does not appear to have any active abdominal pathology. The patient's labs are reviewed and reassuring, no significant concerning abnormalities. Her ultrasound is negative for DVT, knee x-ray does not show any fracture. Under medically, the patient does not require admission to the hospital. She was interested in rehab as she feels she has not been doing well since her discharge from inpatient. The patient will be seen methadone therapy and case management. Differential Diagnosis Differential Diagnoses: The differential diagnosis associated with the presentation includes Right knee pain Brady's cyst Vasculitis Superficial thrombophlebitis Failure to thrive Lab Data MDM Lab Attestation statement: I reviewed the patient's lab results. No leukocytosis or significant anemia. Normal platelet count. No electrolyte abnormalities. The patient's potassium is 3..9 today but was low during her recent admission. Her hypokalemia has resolved. 05/01/24 12:25 05/01/24 12:25 Labs: Lab Results 05/01/24 Range/Units 12:25 WBC 6.2 (4.8-10.8) X10*3/uL RBC 4.47 (4.20-5.50) X10*6/uL Hgb 11.8 L (12.0-16.0) g/dl Hct 37.1 (37.0-47.0) % MCV 83.0 (80.0-98.0) fL MCH 26.4 L (27.0-33.0) pg MCHC 31.8 (31.0-35.0) g/dl RDW 15.1 (11.0-16.0) % Plt Count 252 (160-400) X10*3/uL MPV 11.0 (9.4-12.3) fL Immature Gran % (Auto) 0.3 (0.0-0.4) % Neut % (Auto) 63.2 (45-73) % Lymph % (Auto) 26.4 (20-40) % Coal % (Auto) 8.2 (2-11) % Eos % (Auto) 1.3 (0-4) % Baso % (Auto) 0.6 (0-2) % Lymph # (Auto) 1.6 (1.2-4.9) X10*3/uL Coal # (Auto) 0.5 (0.1-1.2) X10*3/uL Eos # (Auto) 0.1 (0.0-0.4) X10*3/uL Baso # (Auto) 0.0 (0.0-0.2) X10*3/uL Abs Immat Gran (auto) 0.02 (0.00-0.03) X10*3/uL Absolute Neuts (auto) 3.9 (2.0-8.3) x10*3/uL Absolute Nucleated RBC 0.000 (0.0-0.012) X10*3/uL Nucleated RBC % (auto) 0.0 (0.0-0.2) /100WBC ESR 54 H (0-20) MM/HR PT 12.1 (10.9-12.4) SEC INR 1.0 (0.9-1.1) APTT 30.5 (26.0-36.8) SEC Sodium 141 (135-145) mmol/L Potassium 3.9 D (3.3-5.1) mmol/L Chloride 111 H (96-108) mmol/L Carbon Dioxide 24 (22-29) mmol/L Anion Gap 10 L (12-20) BUN 9 (9-16) mg/dL Creatinine 0.72 (0.5-1.4) mg/dL Estim Creat Clear Calc 94.3 Estimated GFR > 60 Random Glucose 104 (60-115) mg/dL Calcium 8.9 (8.4-10.2) mg/dL Total Bilirubin 0.5 (0.0-1.0) mg/dL AST 18 (5-31) U/L ALT 8 (0-31) U/L Alkaline Phosphatase 64 (39-117) U/L C-Reactive Protein 0.68 H (< or = 0.50) mg/dL Total Protein 7.6 (6.5-8.0) g/dL Albumin 3.8 (3.5-5.0) g/dL Radiology Impression Discussion of test interpretation with radiology: I have reviewed the radiologist's reading. Radiologist Impression: FINDINGS: The common femoral, superficial femoral, and popliteal veins are patent demonstrating normal compressibility, spontaneous flow, and augmentation. There is a normal color and spectral Doppler waveform appearance of the visualized deep venous system above the knee. The posterior tibial and peroneal veins are patent. There is a fluid collection in the popliteal fossa measuring 3.3 x 0.7 x 2.3 cm, consistent with a Brady's cyst. US/US venous duplex LE RT IMPRESSION: No evidence of acute DVT in the right lower extremity. Popliteal fossa Brady's cyst as described. Electronically signed by: Bharath Fong MD 05/01/2024 01:55 PM EST RP FINDINGS: Four views of the right knee are submitted. The bones are osteopenic. There is no fracture or dislocation. There is mild to moderate osteoarthritis of the lateral compartment with joint space narrowing and osteophyte formation. The soft tissues are unremarkable. There is no joint effusion. XR/XR knee RT 4V IMPRESSION: Mild to moderate osteoarthritis of the lateral compartment. No evidence of fracture of the right knee. Electronically signed by: Bharath Fong MD 05/01/2024 02:29 PM EST RP Discharge Plan Discharge Clinical Impression: Brady's cyst Patient Disposition: Still a Patient Prescriptions: No Action atorvastatin 20 mg tablet 20 mg PO BEDTIME ondansetron 4 mg tablet,disintegrating 4 mg PO Q8H PRN (Reason: Nausea And Vomiting) nitroglycerin 0.4 mg tablet, sublingual 0.4 mg sublingual Q5M PRN (Reason: Chest Pain ) albuterol sulfate [Ventolin HFA] 90 mcg/actuation HFA aerosol inhaler 2 puff inhalation Q4H PRN (Reason: wheezing) acetaminophen 500 mg Tablet 500 mg PO Q6H PRN (Reason: Pain) lidocaine 5 % Ointment 1 appl TOPICAL BID PRN (Reason: Pain) lidocaine [Lidoderm] 5 % adhesive patch,medicated 1 patch topical DAILY Qty: 15 0RF Rx Instructions: leave on most painful area for up to 12 hrs celecoxib 100 mg Capsule 100 mg PO BID hydrochlorothiazide 25 mg tablet 25 mg PO DAILY oxycodone-acetaminophen 10-325 mg tablet 1 tab PO QID PRN (Reason: Pain) valacyclovir 500 mg tablet 500 mg PO BID PRN (Reason: Outbreaks) nystatin 100,000 unit/gram powder 100,000 unit topical BID PRN (Reason: Fungal Infection) lisinopril 10 mg tablet 10 mg PO DAILY cyanocobalamin (vitamin B-12) [Vitamin B-12] 5,000 mcg tablet, sublingual 5,000 mcg PO DAILY gabapentin 300 mg capsule 900 mg PO TID Print Language: Thai
[2024-05-01 12:30] LABS: MANUAL DIFF FLAG NO
[2024-05-01 12:31] LABS: Basophils Percent Auto 0.6 % (0-2); Eosinophils Absolute Auto 0.1 X10*3/uL (0.0-0.4); Eosinophils Percent Auto 1.3 % (0-4); Hematocrit 37.1 % (37.0-47.0); Hemoglobin 11.8 g/dl (12.0-16.0); Imm Gran Abs Auto 0.02 X10*3/uL (0.00-0.03); Imm Gran Pct Auto 0.3 % (0.0-0.4); Lymphocytes Absolute Auto 1.6 X10*3/uL (1.2-4.9); Lymphocytes Percent Auto 26.4 % (20-40); Mean Corpuscular HGB Conc 31.8 g/dl (31.0-35.0); Mean Corpuscular Hemoglobin 26.4 pg (27.0-33.0); Monocytes Absolute Auto 0.5 X10*3/uL (0.1-1.2); Monocytes Percent Auto 8.2 % (2-11); Neutrophils Absolute Auto 3.9 x10*3/uL (2.0-8.3); Neutrophils Percent Auto 63.2 % (45-73); Platelet Count 252 X10*3/uL (160-400); Red Blood Count 4.47 X10*6/uL (4.20-5.50); Red Cell Distribution Width 15.1 % (11.0-16.0); White Blood Count 6.2 X10*3/uL (4.8-10.8)
[2024-05-01 12:40] LABS: Prothrombin Time 12.1 SEC (10.9-12.4)
[2024-05-01 12:42] LABS: Partial Thromboplastin Time 30.5 SEC (26.0-36.8)
[2024-05-01 12:46] LABS: Alanine Aminotransferase 8 U/L (0-31); Albumin Level 3.8 g/dL (3.5-5.0); Alkaline Phosphatase 64 U/L (39-117); Anion Gap 10 (12-20); Aspartate Amino Transferase 18 U/L (5-31); Bilirubin Total 0.5 mg/dL (0.0-1.0); Blood Urea Nitrogen 9 mg/dL (9-16); C Reactive Protein 0.68 mg/dL (< or = 0.50); Calcium 8.9 mg/dL (8.4-10.2); Carbon Dioxide 24 mmol/L (22-29); Chloride 111 mmol/L (96-108); Creatinine Clr Calc Pharmacy 94.3; Estimated Glomerular Filt Rate > 60; Glucose Random 104 mg/dL (60-115); Potassium 3.9 mmol/L (3.3-5.1); Sodium 141 mmol/L (135-145); Total Protein 7.6 g/dL (6.5-8.0)
[2024-05-01 13:09] LABS: Erythrocyte Sedimentation Rate 54 MM/HR (0-20)
[2024-05-01] MEDS: Morphine Sulfate Immed Release 15 MG TABLET PO (15:40)
[2024-05-01 16:24] VITALS: BP 168/87; PULSE 86; RESP 16; TEMP 37.1; O2SAT 96
--- NOTE | 2024-05-01 16:37 | MHC.CM.ED ---
CM met with patient at the request of Deng QURESHI. Pt was admitted to [facility] from 04/17-04/25/2024. She was discharged to home with resumption of her [employer] services. ASHER did not believe she had a skill. He daughter is her CRANE OILER (37.5 hours/week). She has access to private pay [employer] O[employer]ER if needed. She uses a walker. She has knee pain. Does have Brady's cyst. She does not feel she can manage the pain at home. Her PCP is Per Licona. HCP reviewed, completed and signed. Copies given and loaded into [facility] and [facility] [employer]. Pt is agreeable to PT assessment in the am and possible STR. Pt has qualifying stay. Requests [facility] as first choice. CM will make local referrals. CM will follow for discharge planning.
--- NOTE | 2024-05-01 17:41 | PC.NURSE ---
belongings list completed w/ PCT Melba $800 (8 $100 bills) stored with security. Med rec complete. Pt going to [facility] - report given to CHEIKH Ramirez
--- NOTE | 2024-05-01 17:58 | PC.NURSE ---
Pt comes with quiana walker
--- NOTE | 2024-05-01 18:17 | PC.NURSE ---
Pt arrives from main ED. Pt is A&Ox3. Pt ambulated with this RN at side to bathroom with walker. Kitchen contacted for dinner tray. Pt provided with a snack and beverage. Awaiting PT eval in AM for dispo.
--- NOTE | 2024-05-01 18:58 | PHA.MEDREC ---
Addendum entered by Clem Rivera 05/01/24 19:03: Patient also endorses taking Celebrex BID still. I can't see a fill for this, but there was a past confirmation for Celebrex 100mg BID on an earlier surgical note but this dose was confirmed from 2022. Will add to med rec and inform provider. Original Note: Pharmacy Consult ? Medication Reconciliation Pharmacy has completed the medication reconciliation. Spoke with patient at bedside, she knew her medications and confirmed them. States she took no meds today before coming in except gabapentin which she took at 1400 today.
--- OUTSIDE RECORDS SUMMARY | 2024-05-01 19:01 | XMS_ITS | Encounter Summary ---
Author Organization [facility] Address [address] [place] [address] Care Team Providers Care Line Server Name Role Phone Matthew Licona MD Primary Care Provider [phone] Reason for Visit * Reason Onset Date Comments Hospital Follow-up 04/25/2024 Encounter Details Date Type Department Care Team (Late st Contact Info) Description 04/25/2024 Telephone Adult Medicine [address] [phone] Matthew Licona MD [address] [place] [phone] Hospital Follow-up Social History Tobacco Use Types Packs/Day Years [...] Progress Notes * Cherry Miranda RN - 04/25/2024 2:31 PM EST An appointment was made for her to be seen in the office on 05/26/24 at 1:[address] Licona and she is in agreement with this plan. * Trina Ramírez - 04/25/2024 2:21 PM EST Patient returning phone call * Cherry Miranda RN - 04/25/2024 1:40 PM EST Unable to leave a message as her mailbox was full. * Debo Price - 04/25/2024 12:28 PM EST The patient is calling to schedule a Hospital follow-up. She was admitted in [facility] due to Diverticulitis on 04/17/2024 and is being discharged today 04/25/2024. documented in this encounter Plan of Treatment Upcoming Encounters Date Type Department Care Team (Late st Contact Info) Description 05/02/2024 9:45 AM EST Office Visit General Surgery [facility] [address] [phone] Helio Sultana MD [address] [place] [address] 05/07/2024 10:15 AM EST Office Visit Obstetrics and Gynecology [address] [phone] Ramona Jaramillo MD [address] [place] [phone] 05/26/2024 1:30 PM EDT Office Visit Adult Medicine [facility] - [address] [phone] Matthew Licona MD [address] [place] [address] 06/13/2024 11:30 AM EDT Appointment Radiology Department - [address] [phone] 09/25/2024 10:30 AM EDT Consult Bariatric Surgery - [place] [address] [phone] Yi Fitzpatrick MD [address] [address] documented as of this encounter Visit Diagnoses Not on filedocumented in this encounter Additional Health Concerns Infection Onset Date Last Indicated Resolved Time Influenza 04/14/2024 04/14/2024 documented as of this encounter Care Teams Line Server Relationship Specialty Start Date End Date Matthew Licona MD [address] [place] [address] PCP - General Internal Medicine 02/07/24 documented as of this encounter
--- OUTSIDE RECORDS SUMMARY | 2024-05-01 19:01 | XMS_ITS | Encounter Summary ---
Author Organization [facility] [place] [address] Care Team Providers Care Smoke Chaser Name Role Phone Matthew Licona MD Primary Care Provider [phone] Encounter Details Date Type Department Care Team (Late st Contact Info) Description 04/03/2024 Telephone Adult Medicine [address] [phone] Matthew Licona MD [address] [place] [phone] Social History Tobacco Use Types Packs/Day Years [...] a tele however was not seen for multimedia manager. Patient needs to be seen by lizet for medication. Dr. Licona did not have any openings until June. [...] recently to another state outside of [place], [place], [place], [place], [place], [place], [place]? no o If yes, did you quarantine [...] of accident/Injury: No If yes, gather 3rd libertarian insurance information Third Green Party Information: not applicable PCP: Matthew Licona MD Payor: [facility] [employer] / Plan: [employer] / Product Type: *No Product type* / documented in this encounter Plan of Treatment Upcoming Encounters Date Type Department Care Team (Late st Contact Info) Description 05/02/2024 9:45 AM EST Office Visit General Surgery - [address] [phone] Helio Sultana MD [address] [place] [phone] 05/07/2024 10:15 AM EST Office Visit Obstetrics and Gynecology - [address] [phone] Ramona Jaramillo MD [address] [place] [address] 05/26/2024 1:30 PM EDT Office Visit Adult Medicine [facility] - [address] [phone] Matthew Licona MD [address] [place] [address] 06/13/2024 11:30 AM EDT Appointment Radiology Department - [address] [phone] 09/25/2024 10:30 AM EDT Consult Bariatric Surgery - [address] [phone] Yi Fitzpatrick MD [address] [place] [address] documented as of this encounter Visit Diagnoses Not on filedocumented in this encounter Care Teams Smoke Chaser Relationship Specialty Start Date End Date Matthew Licona MD [address] [place] [address] PCP - General Internal Medicine 02/07/24 documented as of this encounter
--- OUTSIDE RECORDS SUMMARY | 2024-05-01 19:02 | XMS_ITS | Encounter Summary ---
Author Organization [facility] [place] [address] Care Team Providers Care Lumber Bearer Name Role Phone Matthew Licona MD Primary Care Provider [phone] Reason for Visit * Reason Onset Date Comments Appointment 03/20/2024 Encounter Details Date Type Department Care Team (Late st Contact Info) Description 03/20/2024 Telephone Adult Medicine [address] [phone] Matthew Licona MD [address] [place] [address] Appointment Social History Tobacco Use Types Packs/Day [...] on 04/11/2024 & one on 05/16/2024. * Trnia Ramírez - 03/20/2024 3:58 PM EST Patient [...] Licona and get back with her at [phone] (home) [phone] (work) documented in this encounter Plan of Treatment Upcoming Encounters Date Type Department Care Team (Late st Contact Info) Description 05/02/2024 9:45 AM EST Office Visit General Surgery - [place] [address] [phone] Helio Sultana MD [address] [address] 05/07/2024 10:15 AM EST Office Visit Obstetrics and Gynecology - [address] [phone] Ramona Jaramillo MD [address] [place] [address] 05/26/2024 1:30 PM EDT Office Visit [place] [facility] [place] - [address] [phone] Matthew Licona MD [address] [place] [address] 06/13/2024 11:30 AM EDT Appointment Radiology Department - [address] [phone] 09/25/2024 10:30 AM EDT Consult Bariatric Surgery - [place] [address] [facility] [address] [place] [phone] Yi Fiztpatrick MD 175 [facility] [address] [place] [address] documented as of this encounter Visit Diagnoses Not on filedocumented in this encounter Care Teams Lumber Bearer Relationship Specialty Start Date End Date Matthew Licona MD [address] [place] [address] PCP - General Internal Medicine 02/07/24 documented as of this encounter
--- OUTSIDE RECORDS SUMMARY | 2024-05-01 19:02 | XMS_ITS | Encounter Summary ---
Author Organization [facility] Address [address] [place] [address] Care Team Providers Care Stock Driver Name Role Phone Matthew Licona MD Primary Care Provider [phone] Reason for Visit * Reason Onset Date Comments provder call back 04/11/2024 Reschedule 04/11/2024 Encounter Details Date Type Department Care Team (Late st Contact Info) Description 04/11/2024 Nurse Triage Adult Medicine [address] [phone] Matthew Licona MD [address] [place] [phone] provder call back; Reschedule Social History Tobacco [...] Pt states she will go to an [facility] She then asked this message be sent [...] Covid today. Protocols used: Cough - Acute Hki-Jxlaromxis-H-AH * Chari Azul - 04/11/2024 8:39 AM [...] AM EST Office Visit General Surgery - [place] [address] [phone] Helio Sultana MD 175 [facility] [address] [place] [address] 05/07/2024 10:15 AM EST Office Visit Obstetrics and Gynecology [address] [phone] Ramona Jaramillo MD [address] [place] [address] 05/26/2024 1:30 PM EDT Office Visit Adult Medicine [place] - [address] [phone] Matthew Licona MD [address] [place] [address] 06/13/2024 11:30 AM EDT Appointment Radiology Department - [address] [phone] 09/25/2024 10:30 AM EDT Consult Bariatric Surgery - [place] [address] [phone] Yi Fitzpatrick MD [address] [address] documented as of this encounter Visit Diagnoses Not on filedocumented in this encounter Care Teams Stock Driver Relationship Specialty Start Date End Date Matthew Licona MD [address] [place] [address] PCP - General Internal Medicine 02/07/24 documented as of this encounter
--- OUTSIDE RECORDS SUMMARY | 2024-05-01 19:02 | XMS_ITS | Encounter Summary ---
Author Organization [facility] [address] Care Team Providers Care Airline Operations Agent Name Role Phone Matthew Licona MD Primary Care Provider [phone] Reason for Visit * Reason Onset Date Comments Release of Information 04/03/2024 Forms/questionnaires 04/03/2024 Encounter Details Date Type Department Care Team (Late st Contact Info) Description 04/03/2024 Telephone Adult Medicine [address] [phone] Matthew Licona MD [address] [place] [address] Release of Information; Forms/questionnaires Social History Tobacco [...] traveled recently to another state outside of [place], [place], [place], [place], [place], [place], [place]? no o If yes, did you quarantine [...] gather 3rd alliance party insurance information Third Democrat Information: not applicable PCP: Matthew Licona MD Payor: [email or web address] PLAN / Plan: [employer] MEDICAID / Product Type: *No Product type* / documented in this encounter Plan of Treatment Upcoming Encounters Date Type Department Care Team (Late st Contact Info) Description 05/02/2024 9:45 AM EST Office Visit General Surgery [facility] [address] [facility] [address] [place] [address] Helio Sultana MD 175 [facility] [address] [place] [address] 05/07/2024 10:15 AM EST Office Visit Obstetrics and Gynecology - [address] [phone] Ramona Jaramillo MD 30 [place] [address] 05/26/2024 1:30 PM EDT Office Visit Adult Medicine [facility] - [address] [phone] Matthew Licona MD [address] [place] [address] 06/13/2024 11:30 AM EDT Appointment Radiology Department - [address] [phone] 09/25/2024 10:30 AM EDT Consult Bariatric Surgery - [address] [phone] Yi Fitzpatrick MD [address] [address] documented as of this encounter Visit Diagnoses Not on filedocumented in this encounter Additional Health Concerns Infection Onset Date Last Indicated Resolved Time Respiratory Rule-Out 04/14/2024 04/14/2024 025 6:42 PM EST COVID-19 Rule-Out 04/14/2024 04/14/2024 04/14/2024 6:42 PM EST Influenza 04/14/2024 04/14/2024 documented as of this encounter Care Teams Airline Operations Agent Relationship Specialty Start Date End Date Matthew Licona MD [address] [place] [address] PCP - General Internal Medicine 02/07/24 documented as of this encounter
--- OUTSIDE RECORDS SUMMARY | 2024-05-01 19:02 | XMS_ITS | Encounter Summary ---
[facility] [address] [place] [address] Care Team Providers Care Doctor Of Pharmacy Name Role Phone Matthew Licona MD Primary Care Provider [phone] Reason for Visit * Reason Comments Vomiting Diarrhea Encounter Details Date Type Department Care Team (Late st Contact Info) Description 04/14/2024 3:27 PM EST - 04/15/2024 12:[address] [facility] Emergency [address] [place] [phone] Young Rdz MD [address] [address] Influenza A (Primary Dx); Hypokalemia; Diverticulitis Discharge [...] 10:54 PM EST Thank you for choosing [facility]'s Emergency Department for your care today. Your [...] a primary care physician, please call the [facility] at [phone] toestablish a new primary care physician. Please return to the emergency department if you develop a sudden severe change in your symptoms, afever over 100.4,, severe or recurrent vomiting,, or a sudden increase in pain, or if you experience any other new or worsening symptoms or concerns. * Attachments The following attachments cannot be sent through Care Everywhere. * Diverticulitis (Mexican) * Diverticulosis and Diverticulitis: General Info (Mexican) * Influenza (Mexican) documented in this encounter Medications at Time of Discharge albuterol HFA (Ventolin HFA) 90 mcg/actuation inhaler INHALE 2 PUFFS INTO THE LUNGS EVERY 4 HOURS NEEDED FOR COUGH OR WHEEZING. 06/12/2023 atorvastatin (LIPITOR) 20 mg tablet Take 1 Tablet by mouth at bedtime. 12/21/2023 cyanocobalamin, vitamin B-12, 5,000 mcg tablet,disintegratin g [...] minutes as needed for Chest pain. 05/31/2023 nystatin (MYCOSTATIN) 100,000 unit/gram powder Apply 1 g topically 2 times daily. 07/03/2022 ondansetron (ZOFRAN) 4 mg tablet Take 1 tablet (4 mg total) by mouth every 8 (eight) hours if needed for nausea. for nausea 20 tablet 3 01/15/2024 oxyCODONE-acetaminop hen (PERCOCET) 10-325 mg per tabletIndications:Os [...] FOR 3 DAYS Strength: 500 mg 07/03/2022 ciprofloxacin (CIPRO) 500 mg tablet Take 1 tablet (500 mg total) by mouth 2 (two) times a day for 10 days. 20 tablet 04/14/2024 5 ondansetron ODT (ZOFRAN-ODT) 4 mg disintegrating tablet Let 1 tablet dissolve under the tongue three times daily as needed for nausea or vomiting. 10 tablet 04/14/2024 5 documented as of this encounter Ordered Prescriptions Prescription Sig Dispense Quantity Refills Last Filled Start Date End Date metroNIDAZOLE (FLAGYL) 500 mg tablet Take 1 tablet (500 mg total) by mouth 2 (two) times a day. Do not use mouth wash or consume alcohol until 48 hours after last dose 14 tablet 04/14/2024 ondansetron ODT (ZOFRAN-ODT) 4 mg disintegrating tablet Let 1 tablet dissolve under the tongue three times daily as needed for nausea or vomiting. 10 tablet 04/14/2024 5 ciprofloxacin (CIPRO) 500 mg tablet Take 1 tablet (500 mg total) by mouth 2 (two) times a day for 10 days. 20 tablet 04/14/2024 5 documented in this encounter Discharge Disposition Disposition Code Departure Means Destination Comment s Home or Self [facility] documented in this encounter Progress Notes * [...] Laterality Date ??? BREAST SURGERY Bilateral PROCEDURE: [place] UNLISTED PROCEDURE BREAST; COMMENT: 2007 excisional biopsy [...] taking more than 20 mg/day of biotin. [id number], RSV, FLU A AND B QUALITATIVE RT-PCR, INTERNAL LAB CBC AND DIFFERENTIAL Narrative: The following orders were created for panel order CBC and differential. Procedure Abnormality Status --------- ------ CBC auto differential[[id number]] Abnormal Final result Please view results for [...] AM EST Office Visit General Surgery - [place] [address] [phone] Helio Sultana MD 175 [facility] [address] [place] [address] 05/07/2024 10:15 AM EST Office Visit Obstetrics and Gynecology [address] [phone] Ramona Jaramillo MD 30 [place], [place] 05/26/2024 1:30 PM EDT Office Visit Adult Medicine [facility] - [address] [phone] Matthew Licona MD [address] [place] [address] 06/13/2024 11:30 AM EDT Appointment Radiology Department - [address] [phone] 09/25/2024 10:30 AM EDT Consult Bariatric Surgery - [address] [phone] Yi Fitzpatrick MD [address] [address] documented as of this encounter Procedures Procedure [...] 1 VIEW STAT 04/14/2024 5:33 PM EST [id number], RSV, FLU A AND B QUALITATIVE RT-PCR, [...] culture tube (04/14/2024 9:18 PM EST) Pathologist [facility] Extra Tube Hold for add-ons. 04/14/2024 11:[address] [facility] Comment:Auto resulted. Urine Urine specimen obtained by clean catch procedure / Unknown Non-blood Collection / Unknown 04/14/2024 9:18 PM EST 04/14/2024 9:36 PM EST us Babak QURESHI LAB URINE ORDERABLES Final Resul t [facility] [address] [place] [address], [place] [phone] * (ABNORMAL) Urinalysis with reflex microscopic and culture (04/14/2024 9:18 PM EST) [facility] Specific [place] Urine >1.045(H) 1.003 - 1.030 LAB URINALYSIS - AUTOMATED METHOD 04/14/2024 10:[address] [facility] pH, Urine 5.5 5.0 - [...] URINALYSIS - AUTOMATED METHOD 04/14/2024 10:15 PM EST [facility] Urine Urine specimen obtained by clean catch procedure / Unknown Non-blood Collection / Unknown 04/14/2024 9:18 PM EST 04/14/2024 9:36 PM EST us Babak QURESHI LAB URINE ORDERABLES Final Resul t [facility] [address] [place] [address], [place] [phone] * CT Abdomen Pelvis w Contrast (04/14/2024 [...] AM EST No acute pulmonary disease. Code 82599 -------- FINAL REPORT -------- Dictated By: Armen Oneal Dictated Date: 04/15/2024 09:57 ET Assigned Physician: Armen Oneal Reviewed and Electronically Signed By: Armen Oneal Signed Date: 04/15/2024 09:58 ET Workstation ID: [id number] Transcribed By: Self Edit Transcribed Date: 04/15/2024 [...] clear. IMPRESSION: No acute pulmonary disease. Code 03752 -------- FINAL REPORT -------- Dictated By: Armen Oneal Dictated Date: 04/15/2024 09:57 ET Assigned Physician: Armen Oneal Reviewed and Electronically Signed By: Armen Oneal Signed Date: 04/15/2024 09:58 ET Workstation ID: [id number] Transcribed By: Self Edit Transcribed Date: 04/15/2024 09:57 ET Young Rdz MD IMG XR PROCEDURES Final Res ult * (ABNORMAL) [id number], RSV, Influenza A and B qualitative RT-PCR (04/14/2024 5:20 PM EST) Pathologist [facility] Influenza A PCR Detected(A) Not Detected LAB MICROBIOLOGY METHOD 04/14/2024 6:[address] [facility] Influenza B PCR Not Detected Not Detected LAB MICROBIOLOGY METHOD 04/14/2024 6:[address] [facility] RSV PCR Not Detected Not Detected LAB MICROBIOLOGY METHOD 04/14/2024 6:[address] [facility] SARS COV-2 Not Detected Not Detected LAB MICROBIOLOGY METHOD 04/14/2024 6:42 PM [facility] Swab Both anterior nares / Unknown Non-blood Collection / Unknown 04/14/2024 5:20 PM EST 04/14/2024 5:50 PM EST [facility] - 04/14/2024 6:42 PM EST Disclaimer: ??Testing was performed using the [employer] GeneXpert Xpress SARS-CoV-2 _Flu_RSV PLUS PCR assay. [...] for Healthcare providers can be found at https://www.fda.gov/media/394423/download. ?? Fact sheet for Healthcare patients can be found at https://www.fda.gov/media/206601/download. Young Rdz MD LAB MICROBIOLOGY - GENERAL ORDERABLES Final Result Performing Organization Address [facility] de Phone Number [facility] [address] [place] [address], * Troponin I high sensitivity (04/14/2024 1:43 PM EST) [facility] High Sensitivity Troponin I 9 <=54 ng/L LAB CHEMISTRY METHOD 04/14/2024 2:[address] [facility] Blood Venous blood specimen / Unknown Venipuncture / Unknown 04/14/2024 1:43 PM EST 04/14/2024 2:[address] [facility] - 04/14/2024 2:32 PM EST High levels of biotin in samples may falsely decrease hsTroponin values. ??Use caution when interpreting hsTroponin results in patients taking biotin who exhibit renal impairment (eGFR <60) or in patients taking more than 20 mg/day of biotin. Young Rdz MD LAB BLOOD ORDERABLES Final Result Performing Organization Address [facility] de Phone Number [facility] [address] [place] [address], [place] [phone] * ECG 12 lead (04/14/2024 1:34 PM EST) [facility] Ventricular Rate ECG 70 BPM GEMUSE Atrial Rate 70 BPM GEMUSE P-R Interval 166 ms GEMUSE QRS Duration 88 ms GEMUSE Q-T Interval 414 ms GEMUSE QTc 447 ms GEMUSE P Wave [place] 61 degrees GEMUSE R [place] 13 degrees GEMUSE T [place] 78 degrees GEMUSE ECG Interpretation Normal sinus [...] LAB HEMETOLOGY METHOD 04/14/2024 2:[address] [facility] Eosinophils Absolute 0.01 0.00 - 0.50 K/mcL LAB HEMETOLOGY METHOD 04/14/2024 2:[address] [facility] Basophils Absolute 0.01 0.00 - 0.20 K/mcL LAB HEMETOLOGY METHOD 04/14/2024 2:[address] [facility] Immature Granulocytes Absolute 0.00 0.00 - 0.03 K/[facility] LAB HEMETOLOGY METHOD 04/14/2024 2:[address] [facility] Blood Venous blood specimen / Unknown Venipuncture / Unknown 04/14/2024 1:24 PM EST 04/14/2024 2:06 PM EST Young Rdz MD LAB BLOOD ORDERABLES Final Result Performing Organization Address City/[facility]/ZIP Co de Phone Number [facility] [address] [place] [address], [place] [phone] * Lipase (04/14/2024 1:24 PM EST) Pathologist [facility] Lipase 23 13 - 75 unit/L LAB CHEMISTRY METHOD 04/14/2024 2:[address] [facility] Blood Venous blood specimen / Unknown Venipuncture / Unknown 04/14/2024 1:24 PM EST 04/14/2024 2:06 PM EST Young Rdz MD LAB BLOOD ORDERABLES Final Result [facility] [address] [place] [address], [place] [phone] * (ABNORMAL) Comprehensive metabolic panel (04/14/2024 1:24 PM EST) Sodium 138 133 - 145 mmol/L LAB [...] g/dL LAB CHEMISTRY METHOD 04/14/2024 2:[address] [facility] Albumin 3.8 3.2 - 5.0 g/dL LAB CHEMISTRY METHOD 04/14/2024 2:[address] [facility] Total Bilirubin 0.7 0.0 - 1.4 mg/dL LAB CHEMISTRY METHOD 04/14/2024 2:[address] [facility] Blood Venous blood specimen / Unknown Venipuncture / Unknown 04/14/2024 1:24 PM EST 04/14/2024 2:06 PM EST Young Rdz MD LAB BLOOD ORDERABLES Final Result Performing Organization Address [facility]/ZIP Co de Phone Number [facility] [address] [place] [address], [place] [phone] * Magnesium (04/14/2024 1:24 PM EST) Magnesium 2.1 1.9 - 2.6 mg/dL LAB CHEMISTRY METHOD 04/14/2024 2:[address] [facility] Blood Venous blood specimen / Unknown Venipuncture / Unknown 04/14/2024 1:24 PM EST 04/14/2024 2:06 PM EST Young Rdz MD LAB BLOOD ORDERABLES Final Result Performing Organization Address [facility]/ZIP Co de Phone Number [facility] [address] [place] [address], [place] [phone] documented in this encounter Visit Diagnoses Diagnosis [...] 500 mg, oral, Once, On Sun04/14/24 at 2039, For 1 dose, Indication: Intra-abdominal 2139 (Given [...] On Sun04/14/24 at 1700, For 1 dose 1714 (New Bag - Provider: Mayur Matthews RN)1839 (Stopped - Provider: Mayur Matthews RN) sodium chloride 0.9 % bolus 1,000 mL (COMPLETED) 1,000 mL, intravenous, at 1,000 mL/hr, Administer over 1 Hours, Once, On Sun04/14/24 at 1932, For 1 dose 1939 (New Bag - Provider: Sandee Pham RN)2046 (Stopped - Provider: Sundeep Chatterjee RN) sodium chloride 0.9 % flush 10 mL (COMPLETED) 10 mL, intravenous, Once, On Sun04/14/24 at 1854, For 1 dose 1855 (Given [...] documented as of this encounter Care Teams Doctor Of Pharmacy Relationship Specialty Start Date End Date Matthew Licona MD [address] [place] [address] PCP - General Internal Medicine 02/07/24 documented as of this encounter
--- OUTSIDE RECORDS SUMMARY | 2024-05-01 19:02 | XMS_ITS | Encounter Summary ---
Author Organization [facility] [place] [address] Care Team Providers Care Parts Manager Name Role Phone Matthew Licona MD Primary Care Provider [phone] Encounter Details Date Type Department Care Team (Late st Contact Info) Description 04/04/2024 Telephone Adult Medicine [address] [phone] Marta Mcfadden MA Social History Tobacco Use [...] as of this encounter Progress Notes * Magali Connell MA - 04/23/2024 11:43 AM EST Pt is aware of message below, pt did get admitted to hospital , and will call to make a follow up once discharged, FYI. * Matthew Licona MD - 04/21/2024 6:16 PM EST Please let pt know that her csc is in good standing and please make sure however she knows she mustkeep her appointment scheduled for next month * Marta Mcfadden MA - 04/04/2024 10:43 [...] 9:45 AM EST Office Visit General Surgery [facility] [address] [phone] Helio Sultana MD [address] [address] 05/07/2024 10:15 AM EST Office Visit Obstetrics and Gynecology - [address] [phone] Ramona Jaramillo MD [address] [place] [address] 05/26/2024 1:30 PM EDT Office Visit Adult Medicine [facility] - [address] [phone] Matthew Licona MD [address] [place] [address] 06/13/2024 11:30 AM EDT Appointment Radiology Department - [address] [phone] 09/25/2024 10:30 AM EDT Consult Bariatric Surgery - [place] [address] [place] [address] Yi Fitzpatrick MD [address] [place] [address] documented as of this encounter Visit Diagnoses Not on filedocumented in this encounter Additional Health Concerns Infection Onset Date Last Indicated Resolved Time Respiratory Rule-Out 04/14/2024 04/14/2024 025 6:42 PM EST COVID-19 Rule-Out 04/14/2024 04/14/2024 04/14/2024 6:42 PM EST Influenza 04/14/2024 04/14/2024 documented as of this encounter Care Teams Parts Manager Relationship Specialty Start Date End Date Matthew Licona MD [address] [place] [phone] PCP - General Internal Medicine 02/07/24 documented as of this encounter
--- OUTSIDE RECORDS SUMMARY | 2024-05-01 19:02 | XMS_ITS | Clinical Summary ---
Author Organization [facility] Address [address] [place] [address] Care Team Providers Care Lingo Cleaner Name Role Phone Matthew Licona MD Primary Care Provider [phone] Allergies Active Allergy Reactions Criticality Noted Date [...] 4 tablets 112 tablet 04/08/19 25 Active metroNIDAZOLE (FLAGYL) 500 mg tablet Take 1 tablet (500 mg total) by mouth 2 (two) times a day. Do not use mouth wash or consume alcohol until 48 hours after last dose 14 tablet 04/14/19 25 Active oxyCODONE-acetamin ophen (PERCOCET) 10-325 mg per tabletIndications: Osteoarthritis of left hip, unspecified osteoarthritis type Take 1 tablet by mouth 4 (four) times a day. Max Daily Amount: 4 tablets 112 tablet 03/11/19 25 025 Discontinu ed(Reorder ) ciprofloxacin (CIPRO) 500 mg tablet Take 1 tablet (500 mg total) by mouth 2 (two) times a day for 10 days. 20 tablet 04/14/19 25 025 ondansetron ODT (ZOFRAN-ODT) 4 mg disintegrating tablet Let 1 tablet dissolve under the tongue three times daily as needed for nausea or vomiting. 10 tablet 04/14/19 25 025 Active Problems Problem Noted Date Diagnosed Date [...] Follows with [facility] Nephrolithiasis 01/03/2011 Overview (01/08/2024): [facility] - 12/29/10 - Dr. Narvaez Generalized headaches [...] Encounters Date Type Department Care Team Description 04/25/2024 Telephone Adult Medicine [address] [phone] Matthew Licona MD Hospital Follow-up 04/14/2024 3:27 PM EST - 04/15/2024 12:05 AM EST [facility] Emergency [address] [place] [address] Young Rdz MD Influenza A (Primary Dx); Hypokalemia; Diverticulitis Discharge Disposition: Home or Self Care 04/11/2024 Nurse Triage Adult [address] [phone] Matthew Licona MD provder call back; Reschedule 04/04/2024 Telephone Adult [address] [phone] Marta Mcfadden MD 04/03/2024 Telephone Adult [address] [phone] Matthew Licona MD Release of Information; Forms/questionnaires 04/03/2024 Telephone Adult [address] [phone] Matthew Licona MD 03/20/2024 Telephone Adult [address] [phone] Matthew Licona MD Appointment from Last 3 Months Immunizations Name Administration Dates Next Due Influenza trivalent, 0.5mL, preservative free (Fluarix; FluLaval; Fluzone) ages 6mo and older (Afluria) 3 years and older 01/02/2012,11/25/2007 Influenza trivalent, with pr eservative (Fluzone; Afluria) 6mo and older 01/26/2020,01/02/2012,11/25/2007 Pfizer SARS-CoV-2 COVID-19, mRNA, LNP-S, preservative free 04/04/2021 Tdap Tetanus diptheria acell ular pertussis (Boostrix; Adacel) 7yo and older 10/18/2007 Surgical History Surgery Date Site/Laterality Comments SECTION PROCEDURE: HISTORICAL BREAST SURGERY Bilateral PROCEDURE: MO UNLISTED PROCEDURE BREAST; COMMENT: 2007 excisional biopsy [...] AM EST Office Visit General Surgery - [address] [phone] Helio Sultana MD [address] [place] [address] 05/07/2024 10:15 AM EST Office Visit Obstetrics and Gynecology - [address] [phone] Ramona Jaramillo MD [address] [place] [address] 05/26/2024 1:30 PM EDT Office Visit Adult Medicine [facility] - [address] [phone] Matthew Licona MD [address] [place] [address] 06/13/2024 11:30 AM EDT Appointment Radiology Department - [address] [phone] 09/25/2024 10:30 AM EDT Consult Bariatric Surgery - [address] [phone] Yi Fitzpatrick MD [address] [place] [id number] Health Maintenance Due Date Last Done Comments [...] Procedure Name Priority Date/Time Associated Diagnosis Comments EXTERNAL CT REPORT 04/17/2024 ECG ANNOTATED 04/16/2024 MOELLER URINE CULTURE TUBE STAT 04/14/2024 9:18 PM EST URINALYSIS WITH REFLEX MICROSCOPIC AND CULTURE STAT 04/14/2024 9:18 PM EST URINALYSIS WITH REFLEX MICROSCOPIC AND CULTURE STAT 04/14/2024 9:[address] ABDOMEN PELVIS W CONTRAST STAT 04/14/2024 7:01 PM EST XR CHEST 1 VIEW STAT 04/14/2024 5:33 PM EST [id number], RSV, FLU A AND B QUALITATIVE RT-PCR, [...] Recently Relevant to Health Maintenance Results * External CT Report (04/17/2024) Anatomical Region Laterality Modality Computed Tomogra phy us Provider Onbase MD IMG CT PROCEDURES Final Resul t * ECG-Annotated (04/16/2024) us Provider Onbase MD ECG ORDERABLES Final Result * (ABNORMAL) Urinalysis with reflex microscopic and culture (04/14/2024 9:18 PM EST) Specific [place] Urine >1.045(H) 1.003 - 1.030 LAB URINALYSIS - AUTOMATED METHOD 04/14/2024 10:15 PM [facility] pH, Urine 5.5 5.0 - 8.0 pH LAB URINALYSIS - AUTOMATED METHOD 04/14/2024 10:15 PM [facility] Leukocytes, Urine Negative Negative LAB URINALYSIS - AUTOMATED METHOD 04/14/2024 10:15 PM [facility] Nitrite, Urine Negative Negative LAB URINALYSIS - AUTOMATED METHOD 04/14/2024 10:15 PM [facility] Protein, Urine 30(A) <=Trace mg/dL LAB URINALYSIS - AUTOMATED METHOD 04/14/2024 10:15 PM [facility] Glucose, Urine Negative Negative mg/dL LAB URINALYSIS - AUTOMATED METHOD 04/14/2024 10:15 PM [facility] Ketones, Urine 40(A) Negative mg/dL LAB URINALYSIS - AUTOMATED METHOD 04/14/2024 10:15 PM [facility] Urobilinogen , Urine 1.0 0.2 - 1.0 mg/dL LAB URINALYSIS - AUTOMATED METHOD 04/14/2024 10:15 PM [facility] Bilirubin, Urine Negative Negative LAB URINALYSIS - AUTOMATED METHOD 04/14/2024 10:15 PM [facility] Blood, Urine Negative Negative LAB URINALYSIS - AUTOMATED METHOD 04/14/2024 10:15 PM [facility] RBC, Urine 2.7 0 - 4 /HPF LAB URINALYSIS - AUTOMATED METHOD 04/14/2024 10:15 PM [facility] WBC, Urine 3.3 0 - 4 /HPF LAB URINALYSIS - AUTOMATED METHOD 04/14/2024 10:15 PM [facility] Squamous Epithelial, Urine 88(H) 0 - 60 /LPF LAB URINALYSIS - AUTOMATED METHOD 04/14/2024 10:15 PM [facility] Bacteria, Urine Negative Negative /HPF LAB URINALYSIS - AUTOMATED METHOD 04/14/2024 10:15 PM [facility] Hyaline Casts, Urine 3.0 0 - 3 /LPF LAB URINALYSIS - AUTOMATED METHOD 04/14/2024 10:15 PM [facility] Urine Urine specimen obtained by clean catch procedure / Unknown Non-blood Collection / Unknown 04/14/2024 9:18 PM EST 04/14/2024 9:36 PM EST Babak QURESHI LAB URINE ORDERABLES Final Resul t Performing Organization Address City/[facility]/ZIP Co de Phone Number [facility] [address] [place] [address], [place] [phone] * Moeller urine culture tube (04/14/2024 9:18 PM EST) Extra Tube Hold for add-ons. 04/14/2024 11:01 PM [facility] Comment:Auto resulted. Urine Urine specimen obtained by clean catch procedure / Unknown Non-blood Collection / Unknown 04/14/2024 9:18 PM EST 04/14/2024 9:36 PM EST Babak QURESHI LAB URINE ORDERABLES Final Resul t Performing Organization Address City/[facility]/ZIP Co de Phone Number [facility] [address] [place] [address], [place] [phone] * CT Abdomen Pelvis w Contrast (04/14/2024 [...] AM EST No acute pulmonary disease. Code 65908 -------- FINAL REPORT -------- Dictated By: Armen Oneal Dictated Date: 04/15/2024 09:57 ET Assigned Physician: Armen Oneal Reviewed and Electronically Signed By: Armne Oneal Signed Date: 04/15/2024 09:58 ET Workstation ID: [id number] Transcribed By: Self Edit Transcribed Date: 04/15/2024 [...] clear. IMPRESSION: No acute pulmonary disease. Code 95055 -------- FINAL REPORT -------- Dictated By: Armen Oneal Dictated Date: 04/15/2024 09:57 ET Assigned Physician: Armen Oneal Reviewed and Electronically Signed By: Armen Oneal Signed Date: 04/15/2024 09:58 ET Workstation ID: [id number] Transcribed By: Self Edit Transcribed Date: 04/15/2024 09:57 ET us Young Rdz MD IMG XR PROCEDURES Final Res ult * (ABNORMAL) [id number], RSV, Influenza A and B qualitative RT-PCR (04/14/2024 5:20 PM EST) Influenza A PCR Detected(A) Not Detected LAB MICROBIOLOGY METHOD 04/14/2024 6:42 PM EST [facility] Influenza B PCR Not Detected Not Detected LAB MICROBIOLOGY METHOD 04/14/2024 6:42 PM EST [facility] RSV PCR Not Detected Not Detected LAB MICROBIOLOGY METHOD 04/14/2024 6:42 PM EST [facility] SARS COV-2 Not Detected Not Detected LAB MICROBIOLOGY METHOD 04/14/2024 6:42 PM EST [facility] Swab Both anterior nares / Unknown Non-blood Collection / Unknown 04/14/2024 5:20 PM EST 04/14/2024 5:50 PM EST Narrative [facility] - 04/14/2024 6:42 PM EST Disclaimer: ??Testing was performed using the wmbly GeneXpert Xpress SARS-CoV-2 _Flu_RSV PLUS PCR assay. [...] for Healthcare providers can be found at https://www.fda.gov/media/156387/download. ?? Fact sheet for Healthcare patients can be found at https://www.fda.gov/media/643299/download. us Young Rdz MD LAB MICROBIOLOGY - GENERAL ORDERABLES Final Result [facility] [address] [place] [address], * Troponin I high sensitivity (04/14/2024 1:43 PM EST) [facility] High Sensitivity Troponin I 9 <=54 ng/L LAB CHEMISTRY METHOD 04/14/2024 2:32 PM EST [facility] Blood Venous blood specimen / Unknown Venipuncture / Unknown 04/14/2024 1:43 PM EST 04/14/2024 2:03 PM EST Narrative [facility] - 04/14/2024 2:32 PM EST High levels of biotin in samples may falsely decrease hsTroponin values. ??Use caution when interpreting hsTroponin results in patients taking biotin who exhibit renal impairment (eGFR <60) or in patients taking more than 20 mg/day of biotin. Young Rdz MD LAB BLOOD ORDERABLES Final Result Performing Organization Address City/[facility]/ZIP Co de Phone Number [facility] [address] [place] [address], [place] [phone] * ECG 12 lead (04/14/2024 1:34 PM EST) [facility] Ventricular Rate ECG 70 BPM GEMUSE Atrial Rate 70 BPM GEMUSE P-R Interval 166 ms GEMUSE QRS Duration 88 ms GEMUSE Q-T Interval 414 ms GEMUSE QTc 447 ms GEMUSE P Wave Mystic 61 degrees GEMUSE R Mystic 13 degrees GEMUSE T Mystic 78 degrees GEMUSE ECG Interpretation Normal sinus [...] ORDERABLES Final Resul t Performing Organization Address City/[facility]/ZIP Co de Phone Number GEMUSE * (ABNORMAL) CBC auto differential (04/14/2024 1:24 PM EST) [facility] Signature WBC 2.9(L) 4.8 - 10.8 K/mcL LAB HEMETOLOGY METHOD 04/14/2024 2:45 PM [facility] RBC 5.00(H) 3.80 - 4.80 M/mcL LAB HEMETOLOGY METHOD 04/14/2024 2:45 PM [facility] Hemoglobin 13.1 11.5 - 16.0 g/dL LAB HEMETOLOGY METHOD 04/14/2024 2:45 PM [facility] Hematocrit 40.1 35.0 - 47.0 % LAB HEMETOLOGY METHOD 04/14/2024 2:45 PM [facility] MCV 81.0 79.0 - 98.0 FL LAB HEMETOLOGY METHOD 04/14/2024 2:45 PM [facility] MCH 26.5(L) 27.0 - 32.0 pcg LAB HEMETOLOGY METHOD 04/14/2024 2:45 PM [facility] MCHC 32.7 32.0 - 37.0 g/dL LAB HEMETOLOGY METHOD 04/14/2024 2:45 PM [facility] RDW 14.6 11.0 - 15.0 % LAB HEMETOLOGY METHOD 04/14/2024 2:45 PM [facility] Platelets 208 130 - 400 K/mcL LAB HEMETOLOGY METHOD 04/14/2024 2:45 PM [facility] MPV 12.4(H) 7.0 - 11.0 FL LAB HEMETOLOGY METHOD 04/14/2024 2:45 PM [facility] NRBC 0.0 <1.0 % LAB HEMETOLOGY METHOD 04/14/2024 2:45 PM [facility] NRBC Absolute 0.00 <0.10 K/mcL LAB HEMETOLOGY METHOD 04/14/2024 2:45 PM [facility] Neutrophils Relative 56.2 % LAB HEMETOLOGY METHOD 04/14/2024 2:45 PM [facility] Lymphocytes Relative 28.6 % LAB HEMETOLOGY METHOD 04/14/2024 2:45 PM [facility] Monocytes Relative 14.6 % LAB HEMETOLOGY METHOD 04/14/2024 2:45 PM [facility] Eosinophils Relative 0.3 % LAB HEMETOLOGY METHOD 04/14/2024 2:45 PM [facility] Basophils Relative 0.3 % LAB HEMETOLOGY METHOD 04/14/2024 2:45 PM [facility] Immature Granulocytes Relative 0.0 % LAB HEMETOLOGY METHOD 04/14/2024 2:45 PM [facility] Neutrophils Absolute 1.65 1.50 - 7.00 K/mcL LAB HEMETOLOGY METHOD 04/14/2024 2:45 PM [facility] Lymphocytes Absolute 0.84(L) 1.00 - 5.00 K/mcL LAB HEMETOLOGY METHOD 04/14/2024 2:45 PM [facility] Monocytes Absolute 0.43 0.20 - 1.00 K/mcL LAB HEMETOLOGY METHOD 04/14/2024 2:45 PM [facility] Eosinophils Absolute 0.01 0.00 - 0.50 K/mcL LAB HEMETOLOGY METHOD 04/14/2024 2:45 PM [facility] Basophils Absolute 0.01 0.00 - 0.20 K/mcL LAB HEMETOLOGY METHOD 04/14/2024 2:45 PM [facility] Immature Granulocytes Absolute 0.00 0.00 - 0.03 K/mcL LAB HEMETOLOGY METHOD 04/14/2024 2:45 PM [facility] Blood Venous blood specimen / Unknown Venipuncture / Unknown 04/14/2024 1:24 PM EST 04/14/2024 2:06 PM EST Young Rdz MD LAB BLOOD ORDERABLES Final Result Performing Organization Address City/[facility]/ZIP Co de Phone Number [facility] [address] [place] [address], [place] [phone] * Magnesium (04/14/2024 1:24 PM EST) Pathologist [facility] Magnesium 2.1 1.9 - 2.6 mg/dL LAB CHEMISTRY METHOD 04/14/2024 2:52 PM EST [facility] Blood Venous blood specimen / Unknown Venipuncture / Unknown 04/14/2024 1:24 PM EST 04/14/2024 2:06 PM EST Young Rdz MD LAB BLOOD ORDERABLES Final Result Performing Organization Address [facility]/ZIP Co de Phone Number [facility] [address] [place] [address], [place] [phone] * Lipase (04/14/2024 1:24 PM EST) [facility] Lipase 23 13 - 75 unit/L LAB CHEMISTRY METHOD 04/14/2024 2:52 PM EST [facility] Blood Venous blood specimen / Unknown Venipuncture / Unknown 04/14/2024 1:24 PM EST 04/14/2024 2:06 PM EST Young Rdz MD LAB BLOOD ORDERABLES Final Result Performing Organization Address City/[facility]/ZIP Co de Phone Number [facility] [address] [place] [address], [place] [phone] * (ABNORMAL) Comprehensive metabolic panel (04/14/2024 1:24 PM EST) Pathologist [facility] Sodium 138 133 - 145 mmol/L LAB CHEMISTRY METHOD 04/14/2024 2:52 PM [facility] Potassium 3.1(L) 3.5 - 5.5 mmol/L LAB CHEMISTRY METHOD 04/14/2024 2:52 PM [facility] Chloride 103 96 - 110 mmol/L LAB CHEMISTRY METHOD 04/14/2024 2:52 PM [facility] CO2 26 21 - 32 mmol/L LAB CHEMISTRY METHOD 04/14/2024 2:52 PM [facility] Anion Gap 9 3 - 11 LAB CHEMISTRY METHOD 04/14/2024 2:52 PM [facility] Glucose 92 70 - 100 mg/dL LAB CHEMISTRY METHOD 04/14/2024 2:52 PM [facility] BUN 10 5 - 25 mg/dL LAB CHEMISTRY METHOD 04/14/2024 2:52 PM [facility] Creatinine 0.68 0.50 - 1.10 mg/dL LAB CHEMISTRY METHOD 04/14/2024 2:52 PM [facility] eGFR 104 >=60 mL/min/1. 73m2 LAB CHEMISTRY METHOD 04/14/2024 2:52 PM [facility] Comment:Calculation based on the??Chronic Kidney Disease Epidemiology Collaboration (CKD-EPI) equation refit??without adjustment for race. BUN/Creatinine Ratio 14.7 LAB CHEMISTRY METHOD 04/14/2024 2:52 PM [facility] Calcium 8.9 8.5 - 10.5 mg/dL LAB CHEMISTRY METHOD 04/14/2024 2:52 PM [facility] AST (SGOT) 20 10 - 42 unit/L LAB CHEMISTRY METHOD 04/14/2024 2:52 PM [facility] ALT (SGPT) 12 10 - 60 unit/L LAB CHEMISTRY METHOD 04/14/2024 2:52 PM [facility] Alkaline Phosphatase 71 42 - 121 unit/L LAB CHEMISTRY METHOD 04/14/2024 2:52 PM EST [facility] Total Protein 7.7 6.0 - 8.0 g/dL LAB CHEMISTRY METHOD 04/14/2024 2:52 PM EST [facility] Albumin 3.8 3.2 - 5.0 g/dL LAB CHEMISTRY METHOD 04/14/2024 2:52 PM EST [facility] Total Bilirubin 0.7 0.0 - 1.4 mg/dL LAB CHEMISTRY METHOD 04/14/2024 2:52 PM EST [facility] Blood Venous blood specimen / Unknown Venipuncture / Unknown 04/14/2024 1:24 PM EST 04/14/2024 2:06 PM EST us Young Rdz MD LAB BLOOD ORDERABLES Final Result [facility] [address] [place] [address], * SCREENING MAMMOGRAPHY BI 2-VIEW BREAST INC [...] Breast cancer risk category Low (<15%) Result [facility] Matthew Licona MD IMG XR PROCEDURES Final Result * HIV Screening (05/25/2022) [facility] HIV Screening Abstracted Result [facility] [employer] Final Result * Hepatitis C Screening (05/25/2022) [facility] Hepatitis C Screening Abstracted Result [facility] [employer] Final Result * Lipid panel (06/03/2021) [facility] LDL/HDL Ratio 3 0 - 4 Triglycerides 131 0 - 150 mg/dL Cholesterol 162 0 - 200 mg/dL HDL 51 >=40 mg/dL LDL Cholesterol 85 0 - 100 mg/dL Blood Venous blood specimen / Unknown Result [facility] Provider LAB BLOOD ORDERABLES Briseida l Result * Cervical Cancer Screening: HPV (05/14/2019) [facility] Cervical Cancer Screening: HPV Negative, Abstracted Result [facility] [employer] Final Result from Last 3 Months or Most Recently Relevant to Health Maintenance Additional Health Concerns Infection Onset Date Last Indicated Influenza 04/14/2024 04/14/2024 Insurance [facility] Care Teams Lingo Cleaner Relationship Specialty Start Date End Date Matthew Licona MD [address] [place] [id number] PCP - General Internal Medicine 02/07/24
[2024-05-01 20:47] VITALS: BP 146/72; PULSE 83; RESP 20; TEMP 37; O2SAT 98
[2024-05-01] MEDS: oxyCODONE HCl Immed Release 5 MG TABLET 10 MG PO (20:49)
[2024-05-01] MEDS: Gabapentin 300 MG CAPSULE 900 MG PO (20:49)
[2024-05-01] MEDS: Atorvastatin Calcium 20 MG TABLET PO (20:49)
[2024-05-02] MEDS: Celecoxib 100 MG CAPSULE PO ×3 (00:08→20:10)
[2024-05-02] MEDS: oxyCODONE HCl Immed Release 5 MG TABLET 10 MG PO ×4 (02:49→20:10)
[2024-05-02 06:07] VITALS: BP 119/70; PULSE 87; RESP 16; TEMP 36.9; O2SAT 98
[2024-05-02] MEDS: Acetaminophen 325 MG TABLET 650 MG PO ×2 (06:38→16:38)
[2024-05-02 08:10] VITALS: BP 109/56; PULSE 75; RESP 18; TEMP 36.4; O2SAT 95
[2024-05-02] MEDS: hydroCHLOROthiazide 25 MG TABLET PO (08:17)
[2024-05-02] MEDS: Lidocaine 4 % Patch ADH..PATCH 1 PATCH TRANSDERMA (08:18)
[2024-05-02] MEDS: Gabapentin 300 MG CAPSULE 900 MG PO ×3 (08:18→20:10)
--- NOTE | 2024-05-02 08:27 | PC.NURSE ---
Awaiting missing 09:00 meds. per phaacy at this time
[2024-05-02 08:40] VITALS: BP 109/56; PULSE 75; O2SAT 95
[2024-05-02] MEDS: Cyanocobalamin (Vitamin B-12) 1,000 MCG TABLET 5000 MCG PO (09:17)
[2024-05-02] MEDS: lisinopriL 10 MG TABLET PO (09:17)
--- NOTE | 2024-05-02 09:54 | MHC.CM.ED ---
Addendum entered by Dianna Goddard 05/02/24 12:25: [facility] is only local facility that is able to offer a bed. Discussed this bed offer with patient. Patient does not like the reviews on the internet and is requesting referrals to: [facility], [address] [place] [address], [facility] and [facility]. Referrals were already made to these facility. No bed offers at this time. Patient agreeable to referral being broadcasted further. Referral sent to all facilities within 50 miles of patient's home that are contracted with patient's insurance. Original Note: Patient remains in ER overflow. Physical therapy eval completed. Short term rehab is recommended. [facility] is unable to offer a bed at this time. Clinical updates sent to facilities still reviewing: [facility], [facility], and [facility]. Continue to monitor for d/c needs.
[2024-05-02 13:14] LABS: Influenza A PCR NEGATIVE (Negative); Influenza B PCR NEGATIVE (Negative); Resp Syncy Virus RNA Qual PCR NEGATIVE (Negative); SARS COV2 PCR INHOUSE NEGATIVE (Negative)
--- NOTE | 2024-05-02 16:15 | MHC.EDTECH ---
pt was stand by assistance well showering
--- NOTE | 2024-05-02 20:07 | MHC.EDTECH ---
Assumed care of Pt [id number]
[2024-05-02] MEDS: Atorvastatin Calcium 20 MG TABLET PO (20:10)
[2024-05-02 20:41] VITALS: BP 178/87; PULSE 77; RESP 16; TEMP 36.6; O2SAT 99
[2024-05-02 21:44] VITALS: BP 158/80
[2024-05-02] MEDS: hydrOXYzine HCL 50 MG TABLET PO (22:10)
[2024-05-03] MEDS: Acetaminophen 325 MG TABLET 650 MG PO (00:08)
[2024-05-03 06:00] VITALS: BP 131/72; PULSE 70; RESP 18; TEMP 36.6; O2SAT 100
[2024-05-03] MEDS: oxyCODONE HCl Immed Release 5 MG TABLET 10 MG PO ×2 (06:28→20:17)
--- NOTE | 2024-05-03 06:33 | PC.NURSE ---
Pt awake and alert. NO apparent distress noted. Slept throughout the night with no events. Awaken this morning reporting right leg pain, 12/12. Medicated as per MAY. Monitoring is ongoing.
--- NOTE | 2024-05-03 07:43 | PC.NURSE ---
called pharmacy for missing medications
[2024-05-03 08:46] VITALS: BP 131/72
[2024-05-03] MEDS: hydroCHLOROthiazide 25 MG TABLET PO (08:46)
[2024-05-03] MEDS: Cyanocobalamin (Vitamin B-12) 1,000 MCG TABLET 5000 MCG PO (08:46)
[2024-05-03] MEDS: Celecoxib 100 MG CAPSULE PO ×2 (08:46→21:10)
[2024-05-03] MEDS: Lidocaine 4 % Patch ADH..PATCH 1 PATCH TRANSDERMA (08:46)
[2024-05-03] MEDS: Gabapentin 300 MG CAPSULE 900 MG PO ×3 (08:46→20:17)
[2024-05-03 08:47] VITALS: BP 131/72
[2024-05-03] MEDS: lisinopriL 10 MG TABLET PO (08:47)
--- NOTE | 2024-05-03 08:55 | PC.NURSE ---
patient a&ox3, rr equal/non labored- speaking in full sentences, pt requesting to see provider regarding different pain medications, provider Andre will be notified via tiger text of pt request. pt medicated per orders and states that her oxycodone does take the edge off but feels she needs something stronger for pain. pt has been oob to bedside commode, call schwarz within reach, plan of care ongoing.
--- NOTE | 2024-05-03 11:30 | PC.NURSE ---
pain meds provider spoke with patient about her request for different pain medications- no new orders were given, per provider pt can elevated her leg, use an eli bandage for additional compression if she would like and alternately could see ortho outpatient.
[2024-05-03 14:22] VITALS: BP 129/81; PULSE 92; RESP 18; TEMP 36.2; O2SAT 96
[2024-05-03] MEDS: hydrOXYzine HCL 50 MG TABLET PO (15:18)
--- NOTE | 2024-05-03 15:49 | PC.NURSE ---
pt ambulated with walker to bathroom to take a shower, on her way back to room 6, pt requested medication for anxiety which she had ordered. pt was medicated with anxiety meds per order.
[2024-05-03] MEDS: Atorvastatin Calcium 20 MG TABLET PO (20:17)
[2024-05-03 21:09] VITALS: BP 179/85; PULSE 103; RESP 18; TEMP 37.6; O2SAT 94
--- NOTE | 2024-05-04 01:35 | PC.NURSE ---
Hot packs provided for comfort.
[2024-05-04] MEDS: oxyCODONE HCl Immed Release 5 MG TABLET 10 MG PO ×4 (04:13→22:13)
[2024-05-04 06:00] VITALS: BP 116/63; PULSE 78; RESP 16; TEMP 36.3; O2SAT 95
--- NOTE | 2024-05-04 06:24 | PC.NURSE ---
Pt calm and cooperative, aox4. Slept most of the night with no events or disturbances noted. Breaths remained even regular and unlabored. VSS. Pt states the current pain management regimen is not effective as pt continues to experience right leg/knee pain 10/10 even after being medicated. Hot packs provided. Pt educated on RICE method to alleviate discomfort as ordered by MDL. Monitoring is ongoing.
[2024-05-04] MEDS: Acetaminophen 325 MG TABLET 650 MG PO (07:54)
[2024-05-04] MEDS: Cyanocobalamin (Vitamin B-12) 1,000 MCG TABLET 5000 MCG PO (09:34)
[2024-05-04 09:35] VITALS: BP 131/80
[2024-05-04] MEDS: Celecoxib 100 MG CAPSULE PO ×2 (09:35→20:53)
[2024-05-04] MEDS: hydroCHLOROthiazide 25 MG TABLET PO (09:35)
[2024-05-04] MEDS: Gabapentin 300 MG CAPSULE 900 MG PO ×3 (09:35→20:53)
[2024-05-04] MEDS: Lidocaine 4 % Patch ADH..PATCH 1 PATCH TRANSDERMA (09:43)
[2024-05-04] MEDS: lisinopriL 10 MG TABLET PO (09:43)
[2024-05-04] MEDS: hydrOXYzine HCL 50 MG TABLET PO (14:33)
[2024-05-04 14:35] VITALS: BP 130/77; PULSE 98; RESP 16; TEMP 36.8; O2SAT 96
--- NOTE | 2024-05-04 15:46 | PC.NURSE ---
Patient requested to have security called and have her newton brought from the safe. Slip from the chart given to security, GAS DISTRIBUTION SUPERVISOR retrieved the sealed envelop with newton and give it to patient, with RN as witness.
--- NOTE | 2024-05-04 15:52 | MHC.CM.ED ---
Patient remains in ER overflow. [facility] is 1st choice. Patient is requesting private room. [facility] made aware and ask to obtain insurance auth. Continue to monitor for d/c needs.
--- NOTE | 2024-05-04 18:06 | PC.NURSE ---
Patient alert and oriented, VSS, on RA sat's above 95%, c/o pain to R leg requesting pain medication. Patient educated on the pain management, and PRN pain medication available. Patient independent in the room, utilizing bedside commode. Compliant with meals and medication. Patient requested to speak with provider re: pain management, wanted to discuss adjustment in pain medication regiment, msg sent to the provider with the request. Patient continues to utilize hot pack for her pain with some relieve. Patient made a request to have her newton from the safe brought to her room. Per belonging slip in patient's chart there is $800 in newton in the safe which was picked up by the CUSTOMER SERVICE ASSISTANT and given to the patient. RN witnessed the sealed envelope given to the patient by the CUSTOMER SERVICE ASSISTANT.
--- NOTE | 2024-05-04 19:35 | PC.NURSE ---
patient ambulatory with walker to bathroom, set up for shower at this time.
[2024-05-04] MEDS: Atorvastatin Calcium 20 MG TABLET PO (20:53)
[2024-05-04 22:08] VITALS: BP 103/62; PULSE 92; RESP 16; TEMP 36.8; O2SAT 98
[2024-05-05] MEDS: oxyCODONE HCl Immed Release 5 MG TABLET 10 MG PO ×3 (05:44→17:17)
[2024-05-05 05:56] VITALS: BP 120/81; PULSE 64; RESP 16; TEMP 36.3; O2SAT 94
[2024-05-05] MEDS: Lidocaine 4 % Patch ADH..PATCH 1 PATCH TRANSDERMA (08:50)
[2024-05-05] MEDS: hydrOXYzine HCL 50 MG TABLET PO ×2 (08:51→17:16)
[2024-05-05] MEDS: Gabapentin 300 MG CAPSULE 900 MG PO ×3 (08:51→20:56)
[2024-05-05 08:52] VITALS: BP 124/78
[2024-05-05] MEDS: hydroCHLOROthiazide 25 MG TABLET PO (08:52)
[2024-05-05 08:57] VITALS: BP 124/78
[2024-05-05] MEDS: Celecoxib 100 MG CAPSULE PO ×2 (08:57→21:27)
[2024-05-05] MEDS: lisinopriL 10 MG TABLET PO (08:57)
[2024-05-05] MEDS: Cyanocobalamin (Vitamin B-12) 1,000 MCG TABLET 5000 MCG PO (11:47)
--- NOTE | 2024-05-05 12:41 | PC.NURSE ---
Assumed care of patient. Pt aaxo3 speaking clear full sentences. patient able to verbalize all needs independently and eat meals. Assitance with Bedside commode 1 assist RW stand and pivot. Pt reports pain management needs to be adjusted as the current plan is not enough for her pain. MD made aware. Pt call schwarz within reach.
[2024-05-05 13:37] VITALS: BP 124/78
[2024-05-05 14:00] VITALS: BP 147/70; PULSE 88; RESP 18; TEMP 36.1; O2SAT 100
[2024-05-05] MEDS: Acetaminophen 325 MG TABLET 650 MG PO (14:30)
[2024-05-05] MEDS: Atorvastatin Calcium 20 MG TABLET PO (20:56)
[2024-05-05 22:00] VITALS: BP 115/65; PULSE 64; RESP 16; TEMP 36.2; O2SAT 96
[2024-05-06] MEDS: oxyCODONE HCl Immed Release 5 MG TABLET 10 MG PO ×3 (05:13→23:53)
[2024-05-06 06:00] VITALS: BP 120/88; PULSE 83; RESP 16; TEMP 36.1; O2SAT 95
--- NOTE | 2024-05-06 06:06 | PC.NURSE ---
pt states that the medication for pain took the edge off yet pt was sound asleep when pt was checked on. Offered to turn the heat up due to the room was cool. Pt offered a heat pack for her pain to her knee.
[2024-05-06 06:13] VITALS: BP 120/88; PULSE 83; RESP 16; TEMP 36.1
--- NOTE | 2024-05-06 06:35 | PC.NURSE ---
pt slept thur the night and was medicated x1 with oxydocone. pt was encouraged to elevate the extremity, ice pack and heat pack offered as well as increasing the heat to the room due to how cold it was. pt has not worn the eli bandage during the night.
--- NOTE | 2024-05-06 08:42 | MHC.CM.ED ---
Addendum entered by Dianna Goddard 05/06/24 13:41: Received notification from [facility] that a patient did not d/c. No other bed availability at [facility]. [facility] and [facility] are able to offer a bed. Spoke with patient. Accepts bed at [facility]. Original Note: Patient remains in ER overflow. [facility] has submitted for insurance auth. Continue to monitor for d/c needs.
[2024-05-06] MEDS: Celecoxib 100 MG CAPSULE PO ×2 (09:41→21:11)
[2024-05-06 09:42] VITALS: BP 120/88
[2024-05-06] MEDS: Gabapentin 300 MG CAPSULE 900 MG PO ×3 (09:42→21:12)
[2024-05-06] MEDS: hydroCHLOROthiazide 25 MG TABLET PO (09:42)
[2024-05-06] MEDS: Cyanocobalamin (Vitamin B-12) 1,000 MCG TABLET 5000 MCG PO (09:42)
[2024-05-06 09:43] VITALS: BP 120/88
[2024-05-06] MEDS: Lidocaine 4 % Patch ADH..PATCH 1 PATCH TRANSDERMA (09:43)
[2024-05-06] MEDS: lisinopriL 10 MG TABLET PO (09:43)
[2024-05-06] MEDS: hydrOXYzine HCL 50 MG TABLET PO ×2 (12:34→21:11)
[2024-05-06 14:00] VITALS: BP 122/56; PULSE 99; RESP 18; TEMP 36.5; O2SAT 97
[2024-05-06 20:23] VITALS: BP 128/73; PULSE 94; RESP 16; TEMP 36.3; O2SAT 99
[2024-05-06] MEDS: Atorvastatin Calcium 20 MG TABLET PO (21:11)
[2024-05-07 06:27] VITALS: BP 142/76; PULSE 89; RESP 16; TEMP 36.1; O2SAT 98
[2024-05-07] MEDS: oxyCODONE HCl Immed Release 5 MG TABLET 10 MG PO ×2 (06:30→14:03)
[2024-05-07] MEDS: Gabapentin 300 MG CAPSULE 900 MG PO ×2 (10:00→14:03)
[2024-05-07] MEDS: hydroCHLOROthiazide 25 MG TABLET PO (10:00)
[2024-05-07] MEDS: Cyanocobalamin (Vitamin B-12) 1,000 MCG TABLET 5000 MCG PO (10:00)
[2024-05-07] MEDS: lisinopriL 10 MG TABLET PO (10:00)
[2024-05-07] MEDS: Celecoxib 100 MG CAPSULE PO (10:00)
--- NOTE | 2024-05-07 10:12 | MHC.CM.ED ---
Patient remains in ER overflow. Insurance auth has been obtained by Sofiamoflorecita Steinberg. Patient can leave at 230pm. [facility] booked. Med nec with chart. Patient, Sobia SALAMANCA, and [place] QURESHI aware. Continue to monitor for d/c needs.
[2024-05-07 14:00] VITALS: BP 123/59; PULSE 90; RESP 20; TEMP 36.7; O2SAT 100
[2024-05-07] MEDS: hydrOXYzine HCL 50 MG TABLET PO (14:03)
[2024-05-07] MEDS: Lidocaine 4 % Patch ADH..PATCH 1 PATCH TRANSDERMA (14:04)
[2024-05-07 14:12] VITALS: BP 123/59; PULSE 90; RESP 20; TEMP 36.7; O2SAT 100
--- NOTE | 2024-05-07 15:46 | PC.NURSE ---
Assumed care of pt at 0700. Pt A&Ox4, VSS, respirations even and unlabored. Pt reports pain being at 10/10 and states it never gets below that only higher. Educated pt on pain med regimen, medicated per MAY. Pt educated on discharge plan, to which pt was agreeable to. Pt offered no complaints.
== END 2024-05-07 15:00 ==
PROVIDERS: Nurse Practitioner Family; Physician Assistant; Emergency Provider Emergency Medicine; PCP Internal Medicine
DX: M71.21 Synovial cyst of popliteal space [Baker], right knee (principal); M79.604 Pain in right leg; I10 Essential (primary) hypertension; E66.9 Obesity, unspecified; Z68.42 Body mass index [BMI] 45.0-49.9, adult; Z03.818 Encounter for observation for suspected exposure to other biological agents ruled out
CPT/HCPCS: 0241U; 36415; 71045; 73564; 73590; 80053; 85025; 85610; 85652; 85730; 86140; 93971; 97161; 97530; 99285

== ENCOUNTER → 2024-05-01 12:11 | Outpatient (BNV) | payer OTHER, SELFPAY | PROVIDERS: PCP Internal Medicine; Visit Provider Radiology Diagnostic Radiology | DX: M79.604 Pain in right leg (principal); M17.11 Unilateral primary osteoarthritis, right knee | CPT/HCPCS: 71045; 73564; 73590; 93971 ==